=== PATIENT | female | born 1945 | race Caucasian/White ===

== ENCOUNTER 2017-11-03 10:46 | Inpatient (IN) | payer OTHER ==
--- NOTE | 2017-11-03 10:59 | PDOC ---
History of Present Illness - General Chief Complaint: Shortness of Breath Stated Complaint: RESPIRATORY (PCP SENT) Time Seen by Provider: 11/03/17 10:59 - History of Present Illness Initial Comments: 11/03/17 12:57 72yo woman, active smoker, with PMH of Afib (on Eliquis), HTN, and HLD who was sent over by PCP after being found to have L pleural effusion and Hgb 18.2. The patient initially presented to PCP (Dr. Aleman) for abdominal bloating and dyspnea. For the past few weeks she felt that her abdomen has been more distended, but no changes in BM (denies diahrrhea, melena, hematochezia). She worsening sob and orthopnea for the past few days. No fever, chills, CP, chest palpitations. Reports normal colonoscopy and mammogram within the last few years. PCP: Dr. Aleman Past History - Travel Traveled outside of the country in the last 30 days: No Close contact w/someone who was outside of country & ill: No - Past Medical History Allergies/Adverse Reactions: Allergies Allergy/AdvReac Type Severity Reaction Status Date / Time No Known Allergies Allergy Verified 11/03/17 10:47 Home Medications: Ambulatory Orders Apixaban [Eliquis -] 5 mg PO BID #60 tablet 02/23/16 Atorvastatin Ca [Lipitor] 20 mg PO HS 11/03/17 Diltiazem Cd [Cardizem Cd -] 180 mg PO DAILY 11/03/17 Furosemide [Lasix] 20 mg PO UTDICT 11/03/17 Metoprolol Tartrate [Lopressor -] 50 mg PO BID 11/03/17 Pravastatin Sodium [Pravachol (Nf)] 80 mg PO HS 11/03/17 Anemia: No Asthma: No Cancer: No Cardiac Disorders: Yes (a.fib) CVA: No COPD: No CHF: No Dementia: No Diabetes: No GI Disorders: No Disorders: No HTN: Yes Hypercholesterolemia: Yes Liver Disease: No Seizures: No Thyroid Disease: No - Surgical History Abdominal Surgery: No Appendectomy: No Cardiac Surgery: No Cholecystectomy: Yes Lung Surgery: No Neurologic Surgery: No Orthopedic Surgery: No - Suicide/Smoking/Psychosocial Hx Smoking History: Former smoker Have you smoked in the past 12 months: Yes Number of Cigarettes Smoked Daily: 5 Information on smoking cessation initiated: Yes 'Breaking Loose' booklet given: 11/03/17 Hx Alcohol Use: Yes (rare) Drug/Substance Use Hx: No Substance Use Type: Alcohol Hx Substance Use Treatment: No Review of Systems - Review of Systems Constitutional: Yes: Weakness Respiratory: Yes: Cough, Orthopnea, Shortness of Breath ABD/GI: Yes: Abdominal Distended All Other Systems: Reviewed and Negative *Physical Exam - Vital Signs Last Vital Signs Temp Pulse Resp BP Pulse Ox 97.7 F 99 H 18 129/89 93 L 11/03/17 10:48 11/03/17 10:48 11/03/17 10:48 11/03/17 10:48 11/03/17 10:48 - Physical Exam General Appearance: Yes: Nourished, Appropriately Dressed HEENT: positive: Normal ENT Inspection Neck: positive: Supple Respiratory/Chest: positive: Crackles (L). negative: Accessory Muscle Use Cardiovascular: positive: Regular Rhythm, Regular Rate, S1, S2. negative: JVD Vascular Pulses: Dorsalis-Pedis (R): 2+, Doralis-Pedis (L): 2+ Gastrointestinal/Abdominal: positive: Normal Bowel Sounds, Soft, Tenderness ( mild epigastric tenderness) Extremity: negative: Calf Tenderness Neurologic: positive: Fully Oriented, Alert, Normal Response ED Treatment Course - LABORATORY CBC & Chemistry Diagram: 11/03/17 12:10 11/03/17 14:50 Medical Decision Making - Medical Decision Making 11/03/17 16:49 72yo woman, active smoker, who presents with SOB and abdominal discomfort. Will do CT chest to r/o neoplasm given smoking history. CT Abd/pelvis to r/o acute abdominal process. 11/03/17 16:51 CT chest revealed suspicious spiculated mass in PETTY and moderate to large L pleural effusion. Will be admitted by Dr. Beard for further work-up *DC/Admit/Observation/Transfer Diagnosis at time of Disposition: Pleural effusion, Suspected malignant neoplasm - Discharge Dispostion Condition at time of disposition: Stable Admit: Yes - Referrals - Patient Instructions - Post Discharge Activity
[2017-11-03 12:24] LABS: MCH 34.6 pg (25.7-33.7); MCHC 34.9 g/dl (32.0-36.0); MEAN CELL VOLUME 99.2 fl (80-96); MEAN PLT VOLUME 7.8 fl (7.5-11.1); PLATELET COUNT 317 K/MM3 (134-434); RDW 14.6 % (11.6-15.6); WHITE BLOOD COUNT 6.1 K/mm3 (4.0-10.0)
[2017-11-03 12:56] LABS: ALBUMIN 4.3 g/dl (3.4-5.0); ALK PHOS 116 U/L (45-117); ANION GAP 10 (8-16); BILIRUBIN,TOTAL 1.8 mg/dL (0.2-1.0); CALCIUM 10.4 mg/dL (8.5-10.1); CO2 30 mmol/L (21-32); CREATININE 0.9 mg/dL (0.55-1.02); GLUCOSE,RANDOM 97 mg/dL (74-106); SGOT/AST 19 U/L (15-37); SGPT/ALT 20 U/L (12-78); TOT PROT 8.1 g/dl (6.4-8.2)
--- NOTE | 2017-11-03 13:08 | PDOC ---
Attending Attestation - HPI HPI: 11/03/17 13:08 The patient is a 72 year old female, with a significant past medical history of Afib (on eliquis), htn, current smoker, who presents to the emergency department with persistent abdominal pain and bloating, and SOB since being seen by Dr. Aleman about a week ago where she reportedly had a large left pleural effusion and a Hgb 18.2 (14-16 Hgb at baseline). She denies chest pain, headache and dizziness. She denies fever, chills, nausea , vomit, diarrhea and constipation. She denies dysuria, frequency, urgency and hematuria. Allergies: NKDA PCP - Dr. Aleman - Physicial Exam PE: 11/03/17 13:08 Vitals: Triage vital signs reviewed General Appearance: No acute distress, well nourished, well developed Head: Atraumatic Neck: Supple; No nuchal rigidity Chest Wall: Nontender Cardiac: Regular rate and rhythm, no murmurs, no rubs, no gallops Lungs: (+) Crackles at bilateral bases, Mild epigastric discomfort to palpation. good air movement bilaterally Abdomen: Soft, nondistended, normal bowel sounds, nontender to palpation Genitourinary: Rectal: Exam deferred Extremities: Full range of motion to all extremities, no cyanosis, clubbing, or edema Skin: Warm and dry, no rashes or lesions, no rash, no petechiae Neuro: AOX3; Cranial Nerves 2-12 grossly intact, Strength intact to all extremities, Sensation intact to all extremities, gait normal Psych: Normal mood, normal affect - Medical Decision Making 11/03/17 13:10 Documentation prepared by Katy Martell, acting as medical review coordinator for René Celis MD <Katy Martell - Last Filed: 11/03/17 15:57> - Resident Resident Name: Maria Elena Bell - ED Attending Attestation I have performed the following: I have examined & evaluated the patient, The case was reviewed & discussed with the resident, I agree w/resident's findings & plan, Exceptions are as noted - Medical Decision Making 11/03/17 14:26 Patient with shortness of breath cough and now some abdominal discomfort. Some increased abdominal girth. Given long smoking history we'll CT chest abdomen pelvis to rule out cancer and reassess 11/03/17 16:32 Patient sent to the emergency department for shortness of breath. CT demonstrates likely malignancy and pleural effusion. We'll observe for further management <René Celis - Last Filed: 11/03/17 16:33> Heart Score/ECG Review - ECG Intrepretation Comment:: 11/03/17 15:57 EKG performed at 12:50 demonstrates rate of 109 bpm, rhythm of atrial fibrillation with rapid ventricular response, left bundle branch block. No T wave inversions, no ST elevations. <Katy Martell - Last Filed: 11/03/17 15:57>
[2017-11-03 13:22] LABS: BASOPHIL 1.2 % (0-2.0); EOSINOPHIL 1.5 % (0-4.5); NEUTROPHILS 71.8 % (42.8-82.8)
[2017-11-03 15:31] LABS: ALBUMIN 3.6 g/dl (3.4-5.0); ANION GAP 8 (8-16); CALCIUM 9.7 mg/dL (8.5-10.1); CO2 32 mmol/L (21-32); CREATININE 0.9 mg/dL (0.55-1.02); GLUCOSE,RANDOM 106 mg/dL (74-106); SGOT/AST 16 U/L (15-37); SGPT/ALT 18 U/L (12-78)
[2017-11-03 15:33] LABS: ALK PHOS 102 U/L (45-117); BILIRUBIN,TOTAL 1.4 mg/dL (0.2-1.0); TOT PROT 6.9 g/dl (6.4-8.2)
[2017-11-03 15:40] LABS: INR 1.78 (0.82-1.09); PROTHROMBIN TIME (PATIENT) 20.1 SEC (9.98-11.88)
[2017-11-03 15:42] LABS: ACTIVATED PTT 33.3 SECONDS (26.9-34.4)
[2017-11-03] MEDS ORDERED: ONDANSETRON 4 MG/2 ML VIAL IVPUSH PRN (16:21)
[2017-11-03] MEDS ORDERED: ACETAMINOPHEN 325 MG TABLET (FP) PO PRN (16:21)
--- NOTE | 2017-11-03 16:33 | HP ---
Admitting History and Physical - Primary Care Physician PCP: Kia Aleman - Admission Chief Complaint: I'm short of breath History of Present Illness: Mrs Nelson is a very pleasant 72 year old female who came in on recommendation of Dr Aleman for shortness of breath. She says she was doing well until approximately 3 weeks ago when she became short of breath. She says it started off minimal but increased. She is short of breath both at rest and on exertion, and she notes it is worse when she is lying down. She also says that she has abdominal pain. She says it is a bloating type of pain and noted mainly after she eats. She also has nausea but no vomiting with this. She complains of constipation associated with it. She denies fevers, chills, night sweats, weight loss, lightheadedness, dizziness, passing out, chest pain, coughing, difficulty or pain on urination, or leg swelling. She presented to the office and was found to have an elevated Hgb and chest x-ray showed large pleural effusion and she was instructed to come in for further evaluation. Currently she says she feels ok. History Source: Patient Limitations to Obtaining History: No Limitations - Past Medical History Cardiovascular: Yes: AFIB, HTN, Hyperlipdemia - Past Surgical History Past Surgical History: Yes: Cholecystectomy - Smoking History Smoking history: Former smoker Have you smoked in the past 12 months: Yes Aproximately how many cigarettes per day: 5 - Alcohol/Substance Use Hx Alcohol Use: No (rare) History of Substance Use: reports: None - Social History Usual Living Arrangement: Yes: With Spouse ADL: Independent Occupation: retired History of Recent Travel: Yes (to [place]) Home Medications - Allergies Allergies/Adverse Reactions: Allergies Allergy/AdvReac Type Severity Reaction Status Date / Time No Known Allergies Allergy Verified 11/03/17 10:47 - Home Medications Home Medications: Ambulatory Orders Apixaban [Eliquis -] 5 mg PO BID #60 tablet 02/23/16 Atorvastatin Ca [Lipitor] 20 mg PO HS 11/03/17 Diltiazem Cd [Cardizem Cd -] 180 mg PO DAILY 11/03/17 Furosemide [Lasix] 20 mg PO UTDICT 11/03/17 Metoprolol Tartrate [Lopressor -] 50 mg PO BID 11/03/17 Pravastatin Sodium [Pravachol (Nf)] 80 mg PO HS 11/03/17 Family Disease History - Family Disease History Family Disease History: Heart Disease: Mother (CHF) Review of Systems Findings/Remarks: Full review of systems obtained, as per HPI and otherwise negative Physical Examination Vital Signs: Vital Signs Temperature 36.5 C 11/03/17 10:48 Pulse Rate 99 H 11/03/17 10:48 Respiratory Rate 18 11/03/17 10:48 Blood Pressure 129/89 11/03/17 10:48 O2 Sat by Pulse Oximetry (%) 93 L 11/03/17 10:48 Constitutional: Yes: No Distress, Calm, Thin Eyes: Yes: Conjunctiva Clear, EOM Intact, PERRL Cardiovascular: Yes: Pulse Irregular. No: Tachycardia, Gallop, Murmur, Rub Respiratory: Yes: Regular, Other (decreased breath sounds L side). No: Rales, Rhonchi, Wheezes Gastrointestinal: Yes: Normal Bowel Sounds, Soft. No: Distention, Tenderness Extremities: Yes: WNL Edema: No Labs: CBC, BMP 11/03/17 12:10 11/03/17 14:50 Imaging - Results Cat Scan: Report Reviewed, Image Reviewed Problem List - Problems (1) Pleural effusion Assessment/Plan: -patient with large left pleural effusion -most likely cause of shortness of breath -concerning that this is a malignant pleural effusion consider large spiculated mass and smoking history -will need thoracentesis -consult pulmonary and oncology -hold aidan, will discuss with hematology/oncology when safe to perform thoracentesis Code(s): J90 - PLEURAL EFFUSION, NOT ELSEWHERE CLASSIFIED (2) Lung mass Assessment/Plan: -lung mass noted on CT scan -concerning for primary lung cancer -as above Code(s): R91.8 - OTHER NONSPECIFIC ABNORMAL FINDING OF LUNG FIELD (3) Tobacco abuse Assessment/Plan: -now down to 5-6 cigarettes/day -counselled cessation Code(s): Z72.0 - TOBACCO USE (4) Atrial fibrillation Assessment/Plan: -rate controlled with cardizem and metoprolol -hold eliarianais -Dr Munoz is her skidder runner, made aware of hospitalization Code(s): I48.91 - UNSPECIFIED ATRIAL FIBRILLATION Qualifiers: Atrial fibrillation type: chronic Qualified Code(s): I48.2 - Chronic atrial fibrillation (5) HLD (hyperlipidemia) Assessment/Plan: -continue statin Code(s): E78.5 - HYPERLIPIDEMIA, UNSPECIFIED (6) HTN (hypertension) Assessment/Plan: -continue cardizem and metoprolol -continue lasix [facility] Code(s): I10 - ESSENTIAL (PRIMARY) HYPERTENSION Qualifiers: Hypertension type: essential hypertension Qualified Code(s): I10 - Essential (primary) hypertension
[2017-11-03] MEDS ORDERED: DOCUSATE SODIUM 100 MG CAPSULE (FP) PO ONE (17:46)
[2017-11-03] MEDS: DOCUSATE SODIUM 100 MG CAPSULE (FP) PO SCH ×2 (17:52→23:02)
[2017-11-03] MEDS ORDERED: PATIENT'S OWN MEDICATION (NON-FORMULARY) (Pravastatin Sodium 80 MG) PO SCH (22:00)
[2017-11-03] MEDS: METOPROLOL TARTRATE 50 MG TABLET (FP) PO SCH (23:02)
[2017-11-03] MEDS: ATORVASTATIN CA 20 MG TABLET (FP) PO SCH (23:02)
[2017-11-03 23:22] VITALS: BMI 22.3
--- NOTE | 2017-11-04 07:37 | EKG ---
Test Reason : Blood Pressure : / mmHG Vent. Rate : 109 BPM Atrial Rate : 100 BPM P-R Int : 000 ms QRS Dur : 122 ms QT Int : 326 ms P-R-T Axes : 000 014 200 degrees QTc Int : 439 ms ATRIAL FIBRILLATION WITH RAPID VENTRICULAR RESPONSE LEFT BUNDLE BRANCH BLOCK ABNORMAL ECG WHEN COMPARED WITH ECG OF 19-FEB-2016 13:38, LEFT BUNDLE BRANCH BLOCK IS NOW PRESENT CRITERIA FOR ANTEROSEPTAL INFARCT ARE NO LONGER PRESENT Confirmed by Alexandria Alvarado ([id number]) on 11/03/2017 2:21:03 PM Also confirmed by MD Alvarado Daniel ([id number]), assistant film editor [place] WALL ([id number]) on 11/04/2017 7:37:01 AM Referred By: Confirmed By:Alexandria Alvarado MD
[2017-11-04 07:48] LABS: BASOPHIL 1.2 % (0-2.0); EOSINOPHIL 2.4 % (0-4.5); MCHC 38.6 g/dl (32.0-36.0); MEAN CELL VOLUME 107.9 fl (80-96); MEAN PLT VOLUME 8.1 fl (7.5-11.1); NEUTROPHILS 69.5 % (42.8-82.8); RDW 14.5 % (11.6-15.6); WHITE BLOOD COUNT 5.1 K/mm3 (4.0-10.0)
[2017-11-04 07:55] LABS: INR 1.3 (0.82-1.09); PROTHROMBIN TIME (PATIENT) 14.7 SEC (9.98-11.88)
[2017-11-04 08:05] LABS: MCH 41.7 pg (25.7-33.7)
[2017-11-04 08:09] LABS: PHOSPHOROUS 3.4 mg/dL (2.5-4.9)
[2017-11-04 08:26] LABS: ANION GAP 8 (8-16); CALCIUM 8.9 mg/dL (8.5-10.1); CO2 28 mmol/L (21-32); CREATININE 0.7 mg/dL (0.55-1.02); GLUCOSE,RANDOM 95 mg/dL (74-106)
--- NOTE | 2017-11-04 09:03 | CONSULT ---
Consult Consult Specialty:: Oncology Referred by:: - History of Present Illness History of Present Illness: Mrs Nelson is an active smoker with a ECOG PS of 1 , is sent from PMD's office for evaluation of new onset SOB. On imaging she was found to have a pleural effusion/ lung mass. Oncology called for further eval. Pt is seen and examined. Pt says she feels a little bit better than yesterday. She denies fevers, chills, appetite changes, weight loss, lightheadedness, coughing. - History Source History Provided By: Patient, Medical Record - Past Medical History Cardio/Vascular: Yes: AFIB, HTN, Hyperlipdemia ...: No - Past Surgical History Past Surgical History: Yes: Cholecystectomy - Alcohol/Substance Use Hx Alcohol Use: No (rare) History of Substance Use: reports: None - Smoking History Smoking history: Current every day smoker Have you smoked in the past 12 months: Yes Aproximately how many cigarettes per day: 5 - Social History ADL: Independent Occupation: retired History of Recent Travel: Yes (to [place]) Home Medications - Allergies Allergies/Adverse Reactions: Allergies Allergy/AdvReac Type Severity Reaction Status Date / Time No Known Allergies Allergy Verified 11/03/17 10:47 - Home Medications Home Medications: Ambulatory Orders Apixaban [Eliquis -] 5 mg PO BID #60 tablet 02/23/16 Atorvastatin Ca [Lipitor] 20 mg PO HS 11/03/17 Diltiazem Cd [Cardizem Cd -] 180 mg PO DAILY 11/03/17 Furosemide [Lasix] 20 mg PO UTDICT 11/03/17 Metoprolol Tartrate [Lopressor -] 50 mg PO BID 11/03/17 Pravastatin Sodium [Pravachol (Nf)] 80 mg PO HS 11/03/17 Family Disease History - Family Disease History Family Disease History: Heart Disease: Mother (CHF) Review of Systems - Review of Systems Constitutional: denies: Chills, Diaphoresis, Fever, Lethargy, Loss of Appetite Eyes: reports: No Symptoms HENT: denies: Difficult Swallowing Neck: denies: Decreased ROM, Lumps Cardiovascular: reports: Chest Pain, Shortness of Breath Respiratory: reports: Cough, Exercise Intolerance, SOB, SOB on Exertion Gastrointestinal: denies: Abdominal Pain, Bloating, Constipation, Diarrhea Neurological: reports: No Symptoms Physical Exam Vital Signs: Vital Signs Temperature 97.8 F 11/04/17 06:30 Pulse Rate 101 H 11/04/17 06:30 Respiratory Rate 20 11/04/17 06:30 Blood Pressure 139/98 11/04/17 06:30 O2 Sat by Pulse Oximetry (%) 93 L 11/03/17 22:00 Constitutional: Yes: No Distress, Calm Eyes: Yes: Conjunctiva Clear HENT: Yes: Atraumatic, Normocephalic Neck: Yes: Supple, Trachea Midline. No: Decreased ROM, Lymphadenopathy Cardiovascular: Yes: Pulse Irregular Respiratory: Yes: Regular, On Nasal O2, Poor Air Entry, Other (decreased breath sounds on the Left side). No: Tachypnea Labs: CBC, BMP 11/04/17 05:35 11/04/17 05:35 Imaging - Results Cat Scan: Report Reviewed, Image Reviewed Problem List - Problems (1) Atrial fibrillation Code(s): I48.91 - UNSPECIFIED ATRIAL FIBRILLATION Qualifiers: Atrial fibrillation type: chronic Qualified Code(s): I48.2 - Chronic atrial fibrillation (2) Lung mass Code(s): R91.8 - OTHER NONSPECIFIC ABNORMAL FINDING OF LUNG FIELD (3) Pleural effusion Code(s): J90 - PLEURAL EFFUSION, NOT ELSEWHERE CLASSIFIED (4) Tobacco abuse Code(s): Z72.0 - TOBACCO USE Assessment/Plan Moderate to large Pleural effusion with a spiculated mass in the left lung ( pt is an active smoker) -highly suspicious for a primary pulmonary malignancy ( if proven the fluid to be malignant , it would be a M1a stage , making it Stage IV), unless proven otherwise. -Pulmonary consult. -IR guided drainage of the fluid -CT c/a/p reviewed, did not find suspicious findings for other likely metastatic foci -might need to consider CTS eval -for OP PET-CT Afib: -pt on eliquis -last dose was yesterday morning -cardiology eval -with intact renal fn, procedure could likely take place tomorrow CT evidence of renal infarcts: -?etiology -likely might have a secondary polycythemia , but it would be interesting to r/ o a primary dis (pt is an avid blood donor), can be done as an OP, once other much acute issues resolve.
[2017-11-04] MEDS: METOPROLOL TARTRATE 50 MG TABLET (FP) PO SCH ×2 (09:38→22:02)
[2017-11-04] MEDS: DOCUSATE SODIUM 100 MG CAPSULE (FP) PO SCH ×2 (09:38→21:52)
[2017-11-04] MEDS: FUROSEMIDE 20 MG TABLET (FP) PO SCH (09:38)
[2017-11-04 10:33] LABS: PLATELET COMMENTS NO CLUMPING NOTED; PLATELET COUNT 253 K/MM3 (134-434)
--- NOTE | 2017-11-04 11:17 | CONSULT ---
Consultation: REQUESTING PROVIDER: CONSULT REQUEST: We have been asked to medically evaluate this patient for pleural effusion with concern for malignancy. HISTORY OF PRESENT ILLNESS: 72F w/ 75 pack-year smoking hx, HTN, a-fib, and HLD presenting with SOB for past month. Per patient, she was in her USOH until a month ago when she began developing SOB on exertion. The SOB increased until it was present at rest as well. It was accompanied by a productive cough of clear sputum, rhinorrhea, generalized fatigue, abdominal pain with bloating and nausea after eating meals , loss of appetite,and constipation. She denies night sweats, recent unintentional weight loss, fevers, chills, chest pain, palpitations, wheezing, emesis, diarrhea, and dysuria. Pt states that these symptoms prompted her to visit her PCP, Dr. Aleman. It was discovered at the office that she had an elevated Hgb and a pleural effusion on CXR, and so she was instructed to go to the hospital for further evaluation. Pt reports smoking 2 packs of cigarettes per day for about 35 years since she was a teenager. She then cut down to about 5 cigarettes per day when her was diagnosed with heart disease about 20 years ago. She denies alcohol and drug use. 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 She reports a possible family hx of COPD, but she is unsure. REVIEW OF SYSTEMS: CONSTITUTIONAL: Absent: fever, chills, diaphoresis, generalized weakness, weight change present: fatigue, loss of appetite HEENT: Absent: throat pain, throat swelling, difficulty swallowing, mouth swelling, ear pain, eye pain, visual changes present: rhinorrhea CARDIOVASCULAR: Absent: chest pain, syncope, palpitations, irregular heart rate, lightheadedness , peripheral edema RESPIRATORY: Absent: wheezing, stridor, hemoptysis present: cough, SOB, [place] GASTROINTESTINAL: Absent: emesis, diarrhea, melena, hematochezia present: abdominal pain, bloating, nausea, constipation GENITOURINARY: Absent: dysuria, frequency, urgency, hesitancy, hematuria, flank pain, genital pain MUSCULOSKELETAL: Absent: myalgia, arthralgia, joint swelling, back pain, neck pain SKIN: Absent: rash, itching, pallor HEMATOLOGIC/IMMUNOLOGIC: Absent: easy bleeding, easy bruising, lymphadenopathy, frequent infections ENDOCRINE: Absent: unexplained weight gain, unexplained weight loss, heat intolerance, cold intolerance NEUROLOGIC: Absent: headache, focal weakness or paresthesias, dizziness, unsteady gait, seizure, mental status changes, bladder or bowel incontinence PSYCHIATRIC: Absent: anxiety, depression, suicidal or homicidal ideation, hallucinations. PHYSICAL EXAMINATION Vital Signs - 24 hr 11/03/17 11/03/17 11/03/17 19:02 19:35 22:00 Temperature 97.8 F Pulse Rate 97 H Pulse Rate [ 89 Left Radial] Respiratory 18 20 93 H Rate Blood Pressure 115/86 Blood Pressure 125/74 [Left Arm] O2 Sat by Pulse 95 93 L Oximetry (%) 11/04/17 06:30 Temperature 97.8 F Pulse Rate 101 H Pulse Rate [ Left Radial] Respiratory 20 Rate Blood Pressure 139/98 Blood Pressure [Left Arm] O2 Sat by Pulse Oximetry (%) GENERAL: pleasant, elderly female, awake, alert, and fully oriented, in no acute distress. HEENT: moist mucous membranes, [place] NECK: Normal range of motion, supple without lymphadenopathy, JVD, or masses. LUNGS: decreased breath sounds over left lung with rales HEART: irregularly irregular, no murmurs ABDOMEN: Soft, nontender, not distended, normoactive bowel sounds, no guarding, no rebound, no masses. No hepatomegaly or splenomegaly. MUSCULOSKELETAL: 1+ edema in b/l ankles NEUROLOGICAL: Cranial nerves II-XII intact. Normal speech. PSYCHIATRIC: Cooperative. Good eye contact. Appropriate mood and affect. SKIN: Warm, dry, normal turgor, no rashes or lesions noted. Laboratory Results - last 24 hr 11/03/17 11/03/17 11/03/17 12:10 12:10 12:10 WBC 6.1 RBC 5.38 H D Hgb 18.6 H D Hct 53.4 H D MCV 99.2 H MCH 34.6 H D MCHC 34.9 RDW 14.6 Plt Count 317 D MPV 7.8 Total Counted Cancelled Neutrophils % 71.8 Neutrophils % (Manual) Cancelled Band Neutrophils % Cancelled Lymphocytes % 13.9 D Lymphocytes % (Manual) Cancelled Monocytes % 11.6 H Monocytes % (Manual) Cancelled Eosinophils % 1.5 Eosinophils % (Manual) Cancelled Basophils % 1.2 Basophils % (Manual) Cancelled Myelocytes % (Man) Cancelled Promyelocytes % (Man) Cancelled Blast Cells % (Manual) Cancelled Nucleated RBC % Cancelled Metamyelocytes Cancelled Differential Comment Cancelled Hypersegmented Neuts Cancelled Plasma Cells Cancelled Smudge Cells Cancelled Other Cell Type Cancelled Hypochromia Cancelled Toxic Granulation Cancelled Dohle Bodies Cancelled Platelet Estimate Cancelled Platelet Comment Polychromasia Cancelled Poikilocytosis Cancelled Basophilic Stippling Cancelled Anisocytosis Cancelled Microcytosis Cancelled Macrocytosis Cancelled Spherocytes Cancelled Siderocytes Cancelled Sickle Cells Cancelled Target Cells Cancelled Tear Drop Cells Cancelled Ovalocytes Cancelled Stomatocytes Cancelled Helmet Cells Cancelled [place] Bodies Cancelled [place] Rings Cancelled [place] Cells Cancelled Acanthocytes (Spur) Cancelled Rouleaux Cancelled Fragmented RBCs Cancelled Schistocytes Cancelled PT with INR INR PTT (Actin FS) Sodium 138 Potassium 4.1 Chloride 98 Carbon Dioxide 30 Anion Gap 10 BUN 17 D Creatinine 0.9 D Creat Clearance w eGFR > 60 Random Glucose 97 Calcium 10.4 H Phosphorus Magnesium Total Bilirubin 1.8 H D AST 19 D ALT 20 Alkaline Phosphatase 116 Troponin I B-Natriuretic Peptide 2351.68 H Total Protein 8.1 D Albumin 4.3 D Blood Type Antibody Screen 11/03/17 11/03/17 11/03/17 14:50 14:50 14:50 WBC RBC Hgb Hct MCV MCH MCHC RDW Plt Count MPV Total Counted Neutrophils % Neutrophils % (Manual) Band Neutrophils % Lymphocytes % Lymphocytes % (Manual) Monocytes % Monocytes % (Manual) Eosinophils % Eosinophils % (Manual) Basophils % Basophils % (Manual) Myelocytes % (Man) Promyelocytes % (Man) Blast Cells % (Manual) Nucleated RBC % Metamyelocytes Differential Comment Hypersegmented Neuts Plasma Cells Smudge Cells Other Cell Type Hypochromia Toxic Granulation Dohle Bodies Platelet Estimate Platelet Comment Polychromasia Poikilocytosis Basophilic Stippling Anisocytosis Microcytosis Macrocytosis Spherocytes Siderocytes Sickle Cells Target Cells Tear Drop Cells Ovalocytes Stomatocytes Helmet Cells [place] Bodies [place] Rings [place] Cells Acanthocytes (Spur) Rouleaux Fragmented RBCs Schistocytes PT with INR 20.10 H INR 1.78 H PTT (Actin FS) 33.3 Sodium Potassium Chloride Carbon Dioxide Anion Gap BUN Creatinine Creat Clearance w eGFR Random Glucose Calcium Phosphorus Magnesium Total Bilirubin AST ALT Alkaline Phosphatase Troponin I < 0.02 B-Natriuretic Peptide Total Protein Albumin Blood Type O POSITIVE Antibody Screen Negative 11/03/17 11/04/17 11/04/17 14:50 05:35 05:35 WBC 5.1 RBC 3.68 D Hgb 15.3 D Hct 39.7 D MCV 107.9 H D MCH 41.7 H D MCHC 38.6 H RDW 14.5 Plt Count 253 D MPV 8.1 Total Counted Neutrophils % 69.5 Neutrophils % (Manual) Band Neutrophils % Lymphocytes % 12.9 Lymphocytes % (Manual) Monocytes % 14.0 H Monocytes % (Manual) Eosinophils % 2.4 Eosinophils % (Manual) Basophils % 1.2 Basophils % (Manual) Myelocytes % (Man) Promyelocytes % (Man) Blast Cells % (Manual) Nucleated RBC % Metamyelocytes Differential Comment Hypersegmented Neuts Plasma Cells Smudge Cells Other Cell Type Hypochromia Toxic Granulation Dohle Bodies Platelet Estimate Platelet Comment No clumping noted Polychromasia Poikilocytosis Basophilic Stippling Anisocytosis Microcytosis Macrocytosis Spherocytes Siderocytes Sickle Cells Target Cells Tear Drop Cells Ovalocytes Stomatocytes Helmet Cells [place] Bodies [place] Rings [place] Cells Acanthocytes (Spur) Rouleaux Fragmented RBCs Schistocytes PT with INR INR PTT (Actin FS) Sodium 141 141 Potassium 3.8 3.5 Chloride 101 105 Carbon Dioxide 32 28 Anion Gap 8 8 BUN 17 17 Creatinine 0.9 0.7 D Creat Clearance w eGFR > 60 Random Glucose 106 95 Calcium 9.7 8.9 Phosphorus 3.4 D Magnesium 2.0 Total Bilirubin 1.4 H D AST 16 ALT 18 Alkaline Phosphatase 102 Troponin I B-Natriuretic Peptide Total Protein 6.9 Albumin 3.6 Blood Type Antibody Screen 11/04/17 05:35 WBC RBC Hgb Hct MCV MCH MCHC RDW Plt Count MPV Total Counted Neutrophils % Neutrophils % (Manual) Band Neutrophils % Lymphocytes % Lymphocytes % (Manual) Monocytes % Monocytes % (Manual) Eosinophils % Eosinophils % (Manual) Basophils % Basophils % (Manual) Myelocytes % (Man) Promyelocytes % (Man) Blast Cells % (Manual) Nucleated RBC % Metamyelocytes Differential Comment Hypersegmented Neuts Plasma Cells Smudge Cells Other Cell Type Hypochromia Toxic Granulation Dohle Bodies Platelet Estimate Platelet Comment Polychromasia Poikilocytosis Basophilic Stippling Anisocytosis Microcytosis Macrocytosis Spherocytes Siderocytes Sickle Cells Target Cells Tear Drop Cells Ovalocytes Stomatocytes Helmet Cells [place] Bodies [place] Rings [place] Cells Acanthocytes (Spur) Rouleaux Fragmented RBCs Schistocytes PT with INR 14.70 H INR 1.30 H PTT (Actin FS) Sodium Potassium Chloride Carbon Dioxide Anion Gap BUN Creatinine Creat Clearance w eGFR Random Glucose Calcium Phosphorus Magnesium Total Bilirubin AST ALT Alkaline Phosphatase Troponin I B-Natriuretic Peptide Total Protein Albumin Blood Type Antibody Screen Active Medications Generic Name Dose Route Start Last Admin Trade Name Freq PRN Reason Stop Dose Admin Acetaminophen 650 mg 11/03/17 16:21 Tylenol - PO Q4H PRN FEVER OR PAIN Atorvastatin Calcium 20 mg 11/03/17 22:00 11/03/17 23:02 Lipitor - PO 20 mg HS MANDIE Administration Diltiazem HCl 180 mg 11/04/17 10:00 11/04/17 09:38 Cardizem Cd - PO 180 mg DAILY MANDIE Administration Docusate Sodium 100 mg 11/03/17 17:00 11/04/17 09:38 Colace - PO 100 mg BID MANDIE Administration Furosemide 20 mg 11/04/17 10:00 11/04/17 09:38 Lasix - PO 20 mg [id number] MANDIE Administration Metoprolol Tartrate 50 mg 11/03/17 22:00 11/04/17 09:38 Lopressor - PO 50 mg BID MANDIE Administration Ondansetron HCl 4 mg 11/03/17 16:21 Zofran Injection IVPUSH Q6H PRN NAUSEA CT abdomen: no definite acute pathology CTA chest: left suprahilar spiculated soft tissue lesion, lymphadenopathy, large left sided pleural effusion, and trace right sided pleural effusion. ASSESSMENT/PLAN: 72F w/ 75 pack-year smoking hx, HTN, a-fib, and HLD presenting with SOB and multiple constitutional symptoms for past month. #SOB -2/2 large left-sided pleural effusion -CTA chest: left suprahilar spiculated soft tissue lesion, lymphadenopathy, large left sided pleural effusion, and trace right sided pleural effusion. -Suspicion is high for malignancy. pt has over 75 pack-year smoking hx, polycythemia, and a spiculated mass on CTA chest -pt not complaining of SOB at rest now. satting 96% on RA -O2 via NC if she starts desatting -duonebs PRN -lasix -diagnostic/therapeutic thoracentesis to assess pleural fluid. if non-diagnostic , will bx via bronch. -incentive spirometry -oncology consult -f/u rib series for rib pain Rest of care per medical team Case discussed with attending, Dr. Benjamin. Dispo: We will continue to follow the patient. Thank you for this consultative opportunity. -Albert Dumont MD PGY1 Pulmonology Team Visit type - Emergency Visit Emergency Visit: Yes ED Registration Date: 11/03/17 Care time: The patient presented to the Emergency Department on the above date and was hospitalized for further evaluation of their emergent condition. - New Patient This patient is new to me today: Yes Date on this admission: 11/04/17 - Critical Care Critical Care patient: No
--- NOTE | 2017-11-04 11:40 | CON.PULM ---
Consult Consult Specialty:: PULMONARY Referred by:: RICHMOND Reason for Consultation:: LUNG MASS /EFFUSION - History of Present Illness Chief Complaint: ORTHOPNEA/WGT LOSS/COUGH History of Present Illness: 72yo woman, active smoker, with PMH of Afib (on Eliquis), HTN, and HLD who was sent over by PCP after being found to have L pleural effusion and Hgb 18.2. The patient initially presented to PCP (Dr. Aleman) for abdominal bloating and dyspnea. For the past few weeks she felt that her abdomen has been more distended, but no changes in BM (denies diahrrhea, melena, hematochezia). She worsening sob and orthopnea for the past few days. No fever, chills, and chest pain. 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 No: O2 Dependent Gastrointestinal: No: Ascites Hepatobiliary: No: Cirrhosis Renal/: No: Renal Failure Reproductive: Yes: Postmenopausal ...: No - Past Surgical History Past Surgical History: Yes: Cholecystectomy - Alcohol/Substance Use Hx Alcohol Use: No (rare) History of Substance Use: reports: None - Smoking History Smoking history: Current every day smoker Have you smoked in the past 12 months: Yes Aproximately how many cigarettes per day: 5 - Social History ADL: Independent Occupation: retired History of Recent Travel: Yes (to [place]) Home Medications - Allergies Allergies/Adverse Reactions: Allergies Allergy/AdvReac Type Severity Reaction Status Date / Time No Known Allergies Allergy Verified 11/03/17 10:47 - Home Medications Home Medications: Ambulatory Orders Apixaban [Eliquis -] 5 mg PO BID #60 tablet 02/23/16 Atorvastatin Ca [Lipitor] 20 mg PO HS 11/03/17 Diltiazem Cd [Cardizem Cd -] 180 mg PO DAILY 11/03/17 Furosemide [Lasix] 20 mg PO UTDICT 11/03/17 Metoprolol Tartrate [Lopressor -] 50 mg PO BID 11/03/17 Pravastatin Sodium [Pravachol (Nf)] 80 mg PO HS 11/03/17 Family Disease History - Family Disease History Family Disease History: Heart Disease: Mother (CHF) Review of Systems - Review of Systems Constitutional: denies: Fever, Lethargy, Loss of Appetite Eyes: denies: Blind Spots HENT: denies: Difficult Swallowing Neck: denies: Decreased ROM Cardiovascular: reports: Edema, Shortness of Breath. denies: Chest Pain Respiratory: reports: Cough, Exercise Intolerance, Orthopnea, SOB on Exertion. denies: Hemoptysis, Wheezing Gastrointestinal: reports: Abdominal Pain, Bloating, Constipation Genitourinary: denies: Burning Breasts: reports: No Symptoms Reported Physical Exam Vital Sings: Vital Signs Temperature 97.6 F 11/04/17 10:00 Pulse Rate 98 H 11/04/17 10:00 Respiratory Rate 20 11/04/17 10:00 Blood Pressure 140/96 11/04/17 10:00 O2 Sat by Pulse Oximetry (%) 93 L 11/03/17 22:00 Constitutional: Yes: Calm Eyes: Yes: EOM Intact HENT: Yes: Normocephalic Neck: Yes: Trachea Midline Cardiovascular: Yes: Pulse Irregular, S1, S2 Respiratory: Yes: Dullness (on left base extending 1/2 up lung field) Gastrointestinal: Yes: Normal Bowel Sounds Edema: LLE: 2+, RLE: 2+ Integumentary: Yes: WNL ...Motor Strength: WNL Psychiatric: Yes: WNL Labs: CBC, BMP 11/04/17 05:35 11/04/17 05:35 rest reviewed Imaging - Results Chest X-ray: Report Reviewed, Image Reviewed Cat Scan: Report Reviewed, Image Reviewed Problem List - Problems (1) Atrial fibrillation Code(s): I48.91 - UNSPECIFIED ATRIAL FIBRILLATION Qualifiers: Atrial fibrillation type: chronic Qualified Code(s): I48.2 - Chronic atrial fibrillation (2) HLD (hyperlipidemia) Code(s): E78.5 - HYPERLIPIDEMIA, UNSPECIFIED (3) Lung mass Code(s): R91.8 - OTHER NONSPECIFIC ABNORMAL FINDING OF LUNG FIELD (4) Pleural effusion Code(s): J90 - PLEURAL EFFUSION, NOT ELSEWHERE CLASSIFIED (5) Tobacco abuse Code(s): Z72.0 - TOBACCO USE (6) Abdominal pain Code(s): R10.9 - UNSPECIFIED ABDOMINAL PAIN (7) Atrial fibrillation with rapid ventricular response Code(s): I48.91 - UNSPECIFIED ATRIAL FIBRILLATION Assessment/Plan LARGE VOLUME PLEURAL EFFUSION WITH LUNG MASS IN AN ACTIVE SMOKER AFIB ON ELIQUIS HTN NOT WELL CONTROLLED HPL LIKELY COPD WILL NEED DIAGNOSTIC/THERAPEUTIC PROCEDURE THORACENTESIS CAN LIKELY BE PERFORMED TOMORROW ELIQUIS HAS BEEN HELD AFTER ONE DOSE YESTERDAY PATIENT IS LOW RISK FOR BLEEDING I HAVE ORDERED A RIGHT RIB SERIES SHE DESCRIBES RIB PAIN (SEVERE) FOR LAST ONE WEEK IF NONDIAGNOSTIC FOR NEOPLASTIC DISEASE WOULD CONSIDER FOB/BX/BRUSH WILL FOLLOW THANK YOU Gaurang BARBOUR MD
--- NOTE | 2017-11-04 11:54 | CON.CARD ---
Consult Consult Specialty:: Cardiology Referred by:: Paul Beard MD Reason for Consultation:: Pleural effusion - History of Present Illness Chief Complaint: Dyspnea History of Present Illness: Patient is a 72 year old female with h/o HTN/HCVD, diastolic dysfunction, persistent Afib on Eliquis presented with abdominal bloating, progressive dyspnea and orthopnea, found to have large left-sided effusion and pulmonary nodule suspicious of malignancy. 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 No: O2 Dependent Gastrointestinal: No: Ascites Hepatobiliary: No: Cirrhosis Renal/: No: Renal Failure ...: No - Past Surgical History Past Surgical History: Yes: Cholecystectomy - Alcohol/Substance Use Hx Alcohol Use: No (rare) History of Substance Use: reports: None - Smoking History Smoking history: Current every day smoker Have you smoked in the past 12 months: Yes Aproximately how many cigarettes per day: 5 - Social History ADL: Independent Occupation: retired History of Recent Travel: Yes (to [place]) Home Medications - Allergies Allergies/Adverse Reactions: Allergies Allergy/AdvReac Type Severity Reaction Status Date / Time No Known Allergies Allergy Verified 11/03/17 10:47 - Home Medications Home Medications: Ambulatory Orders Apixaban [Eliquis -] 5 mg PO BID #60 tablet 02/23/16 Atorvastatin Ca [Lipitor] 20 mg PO HS 11/03/17 Diltiazem Cd [Cardizem Cd -] 180 mg PO DAILY 11/03/17 Furosemide [Lasix] 20 mg PO UTDICT 11/03/17 Metoprolol Tartrate [Lopressor -] 50 mg PO BID 11/03/17 Pravastatin Sodium [Pravachol (Nf)] 80 mg PO HS 11/03/17 Family Disease History - Family Disease History Family Disease History: Heart Disease: Mother (CHF) Review of Systems - Review of Systems Cardiovascular: reports: Shortness of Breath Respiratory: reports: Orthopnea Vital Signs: Vital Signs Temperature 97.6 F 11/04/17 10:00 Pulse Rate 98 H 11/04/17 10:00 Respiratory Rate 20 11/04/17 10:00 Blood Pressure 140/96 11/04/17 10:00 O2 Sat by Pulse Oximetry (%) 93 L 11/03/17 22:00 Constitutional: Yes: No Distress, Calm, Thin Neck: Yes: Supple Respiratory: Yes: Regular, Diminished (Left), On Nasal O2 Gastrointestinal: Yes: Normal Bowel Sounds, Soft Cardiovascular: Yes: Pulse Irregular JVD: No Carotid Bruit: No Heart Sounds: Yes: S1, S2 Murmur: Yes: Systolic Murmur, Grade 2 Edema: No - Other Data Labs, Other Data: CBC, BMP 11/04/17 05:35 11/04/17 05:35 INR, PTT INR 1.30 (0.82-1.09) H 11/04/17 05:35 Troponin, BNP 11/03/17 11/03/17 12:10 14:50 Troponin I < 0.02 B-Natriuretic Peptide 2351.68 H Troponin, BNP 11/03/17 11/03/17 12:10 14:50 Troponin I < 0.02 B-Natriuretic Peptide 2351.68 H Afib @ 109 LBBB similar to [id number]/28/2017 Echo: Report Reviewed Ejection Fraction %: LVEF > or = 40 % Imaging - Results Cat Scan: Report Reviewed (PETTY lesion suspect malignant, mod-severe left effusion) Problem List - Problems (1) Atrial fibrillation Code(s): I48.91 - UNSPECIFIED ATRIAL FIBRILLATION Qualifiers: Atrial fibrillation type: persistent Qualified Code(s): I48.1 - Persistent atrial fibrillation (2) HLD (hyperlipidemia) Code(s): E78.5 - HYPERLIPIDEMIA, UNSPECIFIED Qualifiers: Hyperlipidemia type: pure hypercholesterolemia Qualified Code(s): E78.00 - Pure hypercholesterolemia, unspecified; E78.0 - Pure hypercholesterolemia (3) Lung mass Code(s): R91.8 - OTHER NONSPECIFIC ABNORMAL FINDING OF LUNG FIELD (4) Pleural effusion Code(s): J90 - PLEURAL EFFUSION, NOT ELSEWHERE CLASSIFIED (5) Tobacco abuse Code(s): Z72.0 - TOBACCO USE (6) HTN (hypertension) Code(s): I10 - ESSENTIAL (PRIMARY) HYPERTENSION Qualifiers: Hypertension type: essential hypertension Qualified Code(s): I10 - Essential (primary) hypertension (7) Diastolic dysfunction Code(s): I51.9 - HEART DISEASE, UNSPECIFIED Assessment/Plan 02/20/2016 Normal LV size and fxn, borderline TRACIE, severe TR, mild TR RVSP 40-50 mmHg 1. Left pleural effusion with lung mass 2. HTN/HCVD 3. Chronic diastolic dysfunction 4. Persistent Afib off Eliquis yesterday 5. Hyperlipidemia 6. Tobacco abuse PLAN: 1. Eliquis held since yesterday, may proceed with thoracentesis today given low bleeding risk, would minimize time off a/c 2. Continue Cardizem CD 180 qd, Lopressor 50 bid, Lasix 20 qd, Lipitor 20 qhs 3. Smoking cessation, thank you for consultative opportunity
--- NOTE | 2017-11-04 15:19 | PN ---
Progress Note, Physician Chief Complaint: Ms Nelson says she is still sob. Also with some right sided chest pain. No n/v. - Current Medication List Current Medications: Active Medications Acetaminophen (Tylenol -) 650 mg PO Q4H PRN PRN Reason: FEVER OR PAIN Atorvastatin Calcium (Lipitor -) 20 mg PO HS [facility] Last Admin: 11/03/17 23:02 Dose: 20 mg Diltiazem HCl (Cardizem Cd -) 180 mg PO DAILY [facility] Last Admin: 11/04/17 09:38 Dose: 180 mg Docusate Sodium (Colace -) 100 mg PO BID [facility] Last Admin: 11/04/17 09:38 Dose: 100 mg Furosemide (Lasix -) 20 mg PO MoWeFr@1000 [facility] Last Admin: 11/04/17 09:38 Dose: 20 mg Metoprolol Tartrate (Lopressor -) 50 mg PO BID [facility] Last Admin: 11/04/17 09:38 Dose: 50 mg Ondansetron HCl (Zofran Injection) 4 mg IVPUSH Q6H PRN PRN Reason: NAUSEA - Objective Vital Signs: Vital Signs Temperature 36.7 C 11/04/17 14:37 Pulse Rate 72 11/04/17 14:37 Respiratory Rate 16 11/04/17 14:37 Blood Pressure 112/78 11/04/17 14:37 O2 Sat by Pulse Oximetry (%) 96 11/04/17 09:00 Constitutional: Yes: Well Nourished, No Distress, Calm Cardiovascular: Yes: Pulse Irregular. No: Tachycardia, Gallop, Murmur, Rub Respiratory: Yes: Regular, On Nasal O2, Rhonchi (with decreased breath sounds on L side). No: CTA Bilaterally, Rales, Wheezes Gastrointestinal: Yes: Normal Bowel Sounds, Soft. No: Distention, Tenderness Extremities: Yes: WNL Edema: No Labs: CBC, BMP 11/04/17 05:35 11/04/17 05:35 INR, PTT INR 1.30 (0.82-1.09) H 11/04/17 05:35 Problem List - Problems (1) Pleural effusion Code(s): J90 - PLEURAL EFFUSION, NOT ELSEWHERE CLASSIFIED (2) Lung mass Code(s): R91.8 - OTHER NONSPECIFIC ABNORMAL FINDING OF LUNG FIELD (3) Tobacco abuse Code(s): Z72.0 - TOBACCO USE (4) Atrial fibrillation Code(s): I48.91 - UNSPECIFIED ATRIAL FIBRILLATION Qualifiers: Atrial fibrillation type: persistent Qualified Code(s): I48.1 - Persistent atrial fibrillation (5) HLD (hyperlipidemia) Code(s): E78.5 - HYPERLIPIDEMIA, UNSPECIFIED Qualifiers: Hyperlipidemia type: pure hypercholesterolemia Qualified Code(s): E78.00 - Pure hypercholesterolemia, unspecified; E78.0 - Pure hypercholesterolemia (6) HTN (hypertension) Code(s): I10 - ESSENTIAL (PRIMARY) HYPERTENSION Qualifiers: Hypertension type: essential hypertension Qualified Code(s): I10 - Essential (primary) hypertension Assessment/Plan (1) Pleural effusion Assessment/Plan: -concerning for malignant pleural effusion -will need thoracentesis, plan for tomorrow Code(s): J90 - PLEURAL EFFUSION, NOT ELSEWHERE CLASSIFIED (2) Lung mass Assessment/Plan: -appreciate oncology assistance -pleural fluid to be sent to cytology -will need outpatient follow up with possible PET scan Code(s): R91.8 - OTHER NONSPECIFIC ABNORMAL FINDING OF LUNG FIELD (3) Tobacco abuse Assessment/Plan: -now down to 5-6 cigarettes/day -counselled cessation Code(s): Z72.0 - TOBACCO USE (4) Atrial fibrillation Assessment/Plan: -rate controlled with cardizem and metoprolol -hold eliquis -case d/w Dr Munoz Code(s): I48.91 - UNSPECIFIED ATRIAL FIBRILLATION Qualifiers: Atrial fibrillation type: chronic Qualified Code(s): I48.2 - Chronic atrial fibrillation (5) HLD (hyperlipidemia) Assessment/Plan: -continue statin Code(s): E78.5 - HYPERLIPIDEMIA, UNSPECIFIED (6) HTN (hypertension) Assessment/Plan: -continue cardizem and metoprolol -continue lasix MWF Code(s): I10 - ESSENTIAL (PRIMARY) HYPERTENSION Qualifiers: Hypertension type: essential hypertension Qualified Code(s): I10 - Essential (primary) hypertension (7) Polycythemia -case d/w Dr Roland -may be primary or secondary to lung cancer -improved today
[2017-11-04] MEDS: POLYETHYLENE GLYCOL 3350 119 GM BTL PO SCH (21:52)
[2017-11-04] MEDS: ATORVASTATIN CA 20 MG TABLET (FP) PO SCH (22:02)
[2017-11-05 08:27] LABS: ANION GAP 8 (8-16); CALCIUM 8.7 mg/dL (8.5-10.1); CO2 27 mmol/L (21-32); CREATININE 0.7 mg/dL (0.55-1.02); GLUCOSE,RANDOM 79 mg/dL (74-106); MAGNESIUM 1.9 mg/dL (1.8-2.4); PHOSPHOROUS 3.9 mg/dL (2.5-4.9)
[2017-11-05 08:56] LABS: BASOPHIL 2.5 % (0-2.0); EOSINOPHIL 2.3 % (0-4.5); MCH 35.4 pg (25.7-33.7); MCHC 34.6 g/dl (32.0-36.0); MEAN CELL VOLUME 102.4 fl (80-96); MEAN PLT VOLUME 8.2 fl (7.5-11.1); PLATELET COUNT 275 K/MM3 (134-434); WHITE BLOOD COUNT 6.3 K/mm3 (4.0-10.0)
[2017-11-05] MEDS: DOCUSATE SODIUM 100 MG CAPSULE (FP) PO SCH ×2 (12:16→21:20)
[2017-11-05] MEDS: METOPROLOL TARTRATE 50 MG TABLET (FP) PO SCH ×2 (12:16→21:20)
[2017-11-05] MEDS: POLYETHYLENE GLYCOL 3350 119 GM BTL PO SCH ×2 (12:42→21:21)
--- NOTE | 2017-11-05 12:50 | PN ---
Progress Note, Physician Chief Complaint: Ms Nelson says she is still sob but improved after thoracentesis, but not much improved. No cp or n/v. - Current Medication List Current Medications: Active Medications Acetaminophen (Tylenol -) 650 mg PO Q4H PRN PRN Reason: FEVER OR PAIN Last Admin: 11/05/17 12:15 Dose: 650 mg Atorvastatin Calcium (Lipitor -) 20 mg PO HS [facility] Last Admin: 11/04/17 22:02 Dose: 20 mg Diltiazem HCl (Cardizem Cd -) 180 mg PO DAILY [facility] Last Admin: 11/05/17 12:16 Dose: 180 mg Docusate Sodium (Colace -) 100 mg PO BID [facility] Last Admin: 11/05/17 12:16 Dose: 100 mg Furosemide (Lasix -) 20 mg PO MoWeFr@1000 [facility] Last Admin: 11/04/17 09:38 Dose: 20 mg Metoprolol Tartrate (Lopressor -) 50 mg PO BID [facility] Last Admin: 11/05/17 12:16 Dose: 50 mg Ondansetron HCl (Zofran Injection) 4 mg IVPUSH Q6H PRN PRN Reason: NAUSEA Polyethylene Glycol (Miralax (For Daily Use) -) 17 gm PO BID [facility] Last Admin: 11/05/17 12:42 Dose: Not Given - Objective Vital Signs: Vital Signs Temperature 36.6 C 11/05/17 10:00 Pulse Rate 92 H 11/05/17 10:00 Respiratory Rate 18 11/05/17 10:00 Blood Pressure 129/72 11/05/17 10:00 O2 Sat by Pulse Oximetry (%) 96 11/05/17 09:00 Constitutional: Yes: Well Nourished, No Distress, Calm Cardiovascular: Yes: Pulse Irregular. No: Tachycardia, Gallop, Murmur, Rub Respiratory: Yes: Regular, Rhonchi (LLL), Other (decreased breath sounds L base) . No: CTA Bilaterally, Rales, Wheezes Gastrointestinal: Yes: Normal Bowel Sounds, Soft. No: Distention, Tenderness Extremities: Yes: WNL Edema: No Labs: CBC, BMP 11/05/17 06:00 11/05/17 06:00 INR, PTT INR 1.30 (0.82-1.09) H 11/04/17 05:35 Problem List - Problems (1) Pleural effusion Code(s): J90 - PLEURAL EFFUSION, NOT ELSEWHERE CLASSIFIED (2) Lung mass Code(s): R91.8 - OTHER NONSPECIFIC ABNORMAL FINDING OF LUNG FIELD (3) Tobacco abuse Code(s): Z72.0 - TOBACCO USE (4) Atrial fibrillation Code(s): I48.91 - UNSPECIFIED ATRIAL FIBRILLATION Qualifiers: Atrial fibrillation type: persistent Qualified Code(s): I48.1 - Persistent atrial fibrillation (5) HLD (hyperlipidemia) Code(s): E78.5 - HYPERLIPIDEMIA, UNSPECIFIED Qualifiers: Hyperlipidemia type: pure hypercholesterolemia Qualified Code(s): E78.00 - Pure hypercholesterolemia, unspecified; E78.0 - Pure hypercholesterolemia (6) HTN (hypertension) Code(s): I10 - ESSENTIAL (PRIMARY) HYPERTENSION Qualifiers: Hypertension type: essential hypertension Qualified Code(s): I10 - Essential (primary) hypertension Assessment/Plan (1) Pleural effusion Assessment/Plan: -concerning for malignant pleural effusion -s/p throacentesis -since still with shortness of breath, will get I/S to help expand lung -monitor today and plan for discharge tomorrow Code(s): J90 - PLEURAL EFFUSION, NOT ELSEWHERE CLASSIFIED (2) Lung mass Assessment/Plan: -appreciate oncology assistance -pleural fluid sent for cytology -will need outpatient follow up with possible PET scan Code(s): R91.8 - OTHER NONSPECIFIC ABNORMAL FINDING OF LUNG FIELD (3) Tobacco abuse Assessment/Plan: -now down to 5-6 cigarettes/day -counselled cessation Code(s): Z72.0 - TOBACCO USE (4) Atrial fibrillation Assessment/Plan: -rate controlled with cardizem and metoprolol -restart eliquis per cardiology and hematology Code(s): I48.91 - UNSPECIFIED ATRIAL FIBRILLATION Qualifiers: Atrial fibrillation type: chronic Qualified Code(s): I48.2 - Chronic atrial fibrillation (5) HLD (hyperlipidemia) Assessment/Plan: -continue statin Code(s): E78.5 - HYPERLIPIDEMIA, UNSPECIFIED (6) HTN (hypertension) Assessment/Plan: -continue cardizem and metoprolol -continue lasix MWF Code(s): I10 - ESSENTIAL (PRIMARY) HYPERTENSION Qualifiers: Hypertension type: essential hypertension Qualified Code(s): I10 - Essential (primary) hypertension (7) Polycythemia -case d/w Dr Roland -may be primary or secondary to lung cancer -stable
--- NOTE | 2017-11-05 12:59 | PN ---
Physical Exam: SUBJECTIVE: Patient seen and examined. No acute events overnight. Pt seen s/p thoracentesis. She states that symptoms are same as yesterday. No difference in SOB or cough. No new symptoms. OBJECTIVE: Vital Signs Period Temp Pulse Resp BP Sys/Sauer Pulse Ox Last 24 Hr 97.7 F-98.0 F 72-92 16-20 112-132/52-102 93-96 GENERAL: pleasant, elderly female, awake, alert, and fully oriented, in no acute distress. HEENT: moist mucous membranes, PEARLLA NECK: Normal range of motion, supple without lymphadenopathy, JVD, or masses. LUNGS: bandage overlying thoracentesis site. diffuse rales over left side HEART: irregularly irregular, no murmurs ABDOMEN: Soft, nontender, not distended, normoactive bowel sounds, no guarding, no rebound, no masses. No hepatomegaly or splenomegaly. MUSCULOSKELETAL: 1+ edema in b/l ankles, improved from yesterday NEUROLOGICAL: Cranial nerves II-XII intact. Normal speech. PSYCHIATRIC: Cooperative. Good eye contact. Appropriate mood and affect. SKIN: Warm, dry, normal turgor, no rashes or lesions noted. Laboratory Results - last 24 hr 11/05/17 11/05/17 06:00 06:00 WBC 6.3 RBC 4.57 D Hgb 16.2 H Hct 46.7 H D MCV 102.4 H MCH 35.4 H D MCHC 34.6 RDW 15.0 Plt Count 275 MPV 8.2 Neutrophils % 66.0 Lymphocytes % 14.6 Monocytes % 14.6 H Eosinophils % 2.3 Basophils % 2.5 H Sodium 140 Potassium 3.5 Chloride 105 Carbon Dioxide 27 Anion Gap 8 BUN 13 D Creatinine 0.7 Random Glucose 79 Calcium 8.7 Phosphorus 3.9 Magnesium 1.9 Active Medications Generic Name Dose Route Start Last Admin Trade Name Freq PRN Reason Stop Dose Admin Acetaminophen 650 mg 11/03/17 16:21 11/05/17 12:15 Tylenol - PO 650 mg Q4H PRN Administration FEVER OR PAIN Atorvastatin Calcium 20 mg 11/03/17 22:00 11/04/17 22:02 Lipitor - PO 20 mg HS M[facility]IE Administration Diltiazem HCl 180 mg 11/04/17 10:00 11/05/17 12:16 Cardizem Cd - PO 180 mg DAILY [facility] Administration Docusate Sodium 100 mg 11/03/17 17:00 11/05/17 12:16 Colace - PO 100 mg BID [facility] Administration Furosemide 20 mg 11/04/17 10:00 11/04/17 09:38 Lasix - PO 20 mg MoWeFr@1000 MANDE[facility] Administration Metoprolol Tartrate 50 mg 11/03/17 22:00 11/05/17 12:16 Lopressor - PO 50 mg BID [facility] Administration Ondansetron HCl 4 mg 11/03/17 16:21 Zofran Injection IVPUSH Q6H PRN NAUSEA Polyethylene Glycol 17 gm 11/04/17 22:00 11/05/17 12:42 Miralax (For Daily Use) - PO Not Given BID M[facility]IE CXR: effusion on left side, no pneumothorax ASSESSMENT/PLAN: 72F w/ 75 pack-year smoking hx, HTN, a-fib, and HLD presenting with SOB and multiple constitutional symptoms for past month. #SOB -2/2 large left-sided pleural effusion -CTA chest: left suprahilar spiculated soft tissue lesion, lymphadenopathy, large left sided pleural effusion, and trace right sided pleural effusion. -Suspicion is high for malignancy. pt has over 75 pack-year smoking hx, polycythemia, and a spiculated mass on CTA chest -diagnostic/therapeutic thoracentesis 11/05: 1L of straw colored fluid removed. sent to lab, results pending. If non-diagnostic, will bx via bronch. -O2 via NC if she starts desatting -duonebs PRN -lasix -incentive spirometry -rib series: no acute fracture Rest of care per medical team Case to be discussed with attending, Dr. Howell. Dispo: We will continue to follow the patient. Thank you for this consultative opportunity. -Albert Dumont MD PGY1 Pulmonology Team Visit type - Emergency Visit Emergency Visit: Yes ED Registration Date: 11/03/17 Care time: The patient presented to the Emergency Department on the above date and was hospitalized for further evaluation of their emergent condition. - New Patient This patient is new to me today: No - Critical Care Critical Care patient: No
[2017-11-05 13:16] LABS: GLUCOSE,PLEURAL FLUID 92.666; TOTAL PROTEIN,PLEURAL FLUID 3.468
--- NOTE | 2017-11-05 14:46 | PN ---
Progress Note (short form) - Note Progress Note: S/P Thoracentesis with removal of around 1 liter of pleural fluid. Protein ratio < .5, consistent with a transudate. Pleural LDH 289, no serum LDH available. Remainder of fluid analysis pending. CXR post procedure: No PTX, residual moderate left effusion OBJECTIVE: Intake & Output 11/02/17 11/03/17 11/04/17 11/05/17 23:59 23:59 23:59 23:59 Intake Total 250 300 Balance 250 300 Weight 130 lb 3.2 oz Last Vital Signs Temp Pulse Resp BP Pulse Ox 98.2 F 95 H 16 112/74 96 11/05/17 14:36 11/05/17 14:36 11/05/17 14:36 11/05/17 14:36 11/05/17 09:00 Active Medications Acetaminophen (Tylenol -) 650 mg PO Q4H PRN PRN Reason: FEVER OR PAIN Last Admin: 11/05/17 12:15 Dose: 650 mg Atorvastatin Calcium (Lipitor -) 20 mg PO HS [facility] Last Admin: 11/04/17 22:02 Dose: 20 mg Diltiazem HCl (Cardizem Cd -) 180 mg PO DAILY [facility] Last Admin: 11/05/17 12:16 Dose: 180 mg Docusate Sodium (Colace -) 100 mg PO BID [facility] Last Admin: 11/05/17 12:16 Dose: 100 mg Furosemide (Lasix -) 20 mg PO MoWeFr@1000 [facility] Last Admin: 11/04/17 09:38 Dose: 20 mg Metoprolol Tartrate (Lopressor -) 50 mg PO BID [facility] Last Admin: 11/05/17 12:16 Dose: 50 mg Ondansetron HCl (Zofran Injection) 4 mg IVPUSH Q6H PRN PRN Reason: NAUSEA Polyethylene Glycol (Miralax (For Daily Use) -) 17 gm PO BID [facility] Last Admin: 11/05/17 12:42 Dose: Not Given GENERAL: awake, alert, and fully oriented, in no acute distress. HEENT: moist mucous membranes NECK: Normal range of motion, supple without lymphadenopathy, JVD, or masses. LUNGS: bandage overlying thoracentesis site. Left basilar rhonchi HEART: irregularly irregular, no murmurs ABDOMEN: Soft, nontender, not distended, normoactive bowel sounds, no guarding, no rebound, no masses. No hepatomegaly or splenomegaly. MUSCULOSKELETAL: 1+ edema in b/l ankles, improved from yesterday NEUROLOGICAL: non-focal PSYCHIATRIC: Cooperative. Good eye contact. Appropriate mood and affect. SKIN: Warm, dry, normal turgor, no rashes or lesions noted. Laboratory Results - last 24 hr 11/05/17 11/05/17 11/05/17 06:00 06:00 11:12 WBC 6.3 RBC 4.57 D Hgb 16.2 H Hct 46.7 H D MCV 102.4 H MCH 35.4 H D MCHC 34.6 RDW 15.0 Plt Count 275 MPV 8.2 Neutrophils % 66.0 Lymphocytes % 14.6 Monocytes % 14.6 H Eosinophils % 2.3 Basophils % 2.5 H Sodium 140 Potassium 3.5 Chloride 105 Carbon Dioxide 27 Anion Gap 8 BUN 13 D Creatinine 0.7 Random Glucose 79 Calcium 8.7 Phosphorus 3.9 Magnesium 1.9 Pleural Total Protein 3.468 Pleural Albumin 2 Pleural LDH 289 Pleural Glucose 92.666 Pleural Amylase 23.391 Pleural Triglycerides 21 ASSESSMENT/PLAN: Suspected malignant left effusion Left suprahilar spiculated mass Mediastinal lymphadenopathy HTN AFib HPL 75 pack year smoking history Follow cytology and cultures O2 as needed BD TX PRN Monitor off ABX If pleural cytology is negative, will need tissue diagnosis Dr Howell
[2017-11-05 15:12] LABS: PLEURAL FLUID APPEARANCE CLOUDY; PLEURAL FLUID COLOR YELLOW; PLEURAL FLUID SOURCE LEFT PLEURAL
[2017-11-05 21:02] LABS: PLEURAL FLUID NEUTROPHIL 0 %
[2017-11-05 21:03] LABS: PLEURAL FLUID LYMPHOCYTES 52 %; PLEURAL FLUID MACROPHAGES 5 %
[2017-11-05] MEDS: ATORVASTATIN CA 20 MG TABLET (FP) PO SCH (21:20)
--- NOTE | 2017-11-05 23:21 | PN ---
Progress Note (short form) - Note Progress Note: Patient seen and examined Denies any fever/chills/cough/SOB/abdominal pain/nausea/vomiting/diarrhea s/p thoracentesis Last Vital Signs Temp Pulse Resp BP Pulse Ox 97.3 F L 82 20 126/98 995 H 11/05/17 17:01 11/05/17 17:01 11/05/17 17:01 11/05/17 17:01 11/05/17 21:00 Cor: RSR, No murmurs, No gallops Lungs: Clear to P&A Abd: Soft, Normal bowel sounds, No organomegaly Home Medication List Medication Instructions Recorded Confirmed Type Atorvastatin Ca [Lipitor] 20 mg PO HS 11/03/17 11/03/17 History Diltiazem Cd [Cardizem Cd -] 180 mg PO DAILY 11/03/17 11/03/17 History Furosemide [Lasix] 20 mg PO UTDICT 11/03/17 11/03/17 History Metoprolol Tartrate [Lopressor -] 50 mg PO BID 11/03/17 11/03/17 History Pravastatin Sodium [Pravachol (Nf)] 80 mg PO HS 11/03/17 11/03/17 History Active Medications Generic Name Dose Route Start Last Admin Trade Name Freq PRN Reason Stop Dose Admin Acetaminophen 650 mg 11/03/17 16:21 11/05/17 12:15 Tylenol - PO 650 mg Q4H PRN Administration FEVER OR PAIN Atorvastatin Calcium 20 mg 11/03/17 22:00 11/05/17 21:20 Lipitor - PO 20 mg HS MANDIE Administration Diltiazem HCl 180 mg 11/04/17 10:00 11/05/17 12:16 Cardizem Cd - PO 180 mg DAILY [facility] Administration Docusate Sodium 100 mg 11/03/17 17:00 11/05/17 21:20 Colace - PO 100 mg BID [facility] Administration Furosemide 20 mg 11/04/17 10:00 11/04/17 09:38 Lasix - PO 20 mg MoWeFr@1000 M[facility]IE Administration Metoprolol Tartrate 50 mg 11/03/17 22:00 11/05/17 21:20 Lopressor - PO 50 mg BID [facility] Administration Ondansetron HCl 4 mg 11/03/17 16:21 Zofran Injection IVPUSH Q6H PRN NAUSEA Polyethylene Glycol 17 gm 11/04/17 22:00 11/05/17 21:21 Miralax (For Daily Use) - PO Not Given BID [facility]IE A.P 72 y/o with suprahilar mass/afib s/p thoracentesis await pathology
[2017-11-06] MEDS: POLYETHYLENE GLYCOL 3350 119 GM BTL PO SCH (10:01)
[2017-11-06] MEDS: METOPROLOL TARTRATE 50 MG TABLET (FP) PO SCH (10:01)
[2017-11-06] MEDS: FUROSEMIDE 20 MG TABLET (FP) PO SCH (10:01)
[2017-11-06] MEDS: DOCUSATE SODIUM 100 MG CAPSULE (FP) PO SCH (10:01)
--- NOTE | 2017-11-06 10:49 | PN ---
Progress Note, Physician History of Present Illness: s/p thoracentesis with removal of around 1 liter of pleural fluid with transudate characteristics with mild improvement in dyspnea. - Current Medication List Current Medications: Active Medications Acetaminophen (Tylenol -) 650 mg PO Q4H PRN PRN Reason: FEVER OR PAIN Last Admin: 11/05/17 12:15 Dose: 650 mg Atorvastatin Calcium (Lipitor -) 20 mg PO HS [facility] Last Admin: 11/05/17 21:20 Dose: 20 mg Diltiazem HCl (Cardizem Cd -) 180 mg PO DAILY [facility] Last Admin: 11/06/17 10:01 Dose: 180 mg Docusate Sodium (Colace -) 100 mg PO BID [facility] Last Admin: 11/06/17 10:01 Dose: 100 mg Furosemide (Lasix -) 20 mg PO MoWeFr@1000 [facility] Last Admin: 11/06/17 10:01 Dose: 20 mg Metoprolol Tartrate (Lopressor -) 50 mg PO BID [facility] Last Admin: 11/06/17 10:01 Dose: 50 mg Ondansetron HCl (Zofran Injection) 4 mg IVPUSH Q6H PRN PRN Reason: NAUSEA Polyethylene Glycol (Miralax (For Daily Use) -) 17 gm PO BID [facility] Last Admin: 11/06/17 10:01 Dose: 17 gm - Objective Vital Signs: Vital Signs Temperature 97.7 F 11/06/17 01:00 Pulse Rate 87 11/06/17 01:00 Respiratory Rate 20 11/06/17 01:00 Blood Pressure 134/96 11/06/17 01:00 O2 Sat by Pulse Oximetry (%) 995 H 11/05/17 21:00 Constitutional: Yes: No Distress, Calm, Thin Neck: Yes: Supple Cardiovascular: Yes: Pulse Irregular Respiratory: Yes: Regular, Diminished Gastrointestinal: Yes: Normal Bowel Sounds, Soft Edema: No Labs: CBC, BMP 11/05/17 06:00 11/05/17 06:00 INR, PTT INR 1.30 (0.82-1.09) H 11/04/17 05:35 Problem List - Problems (1) Atrial fibrillation Code(s): I48.91 - UNSPECIFIED ATRIAL FIBRILLATION Qualifiers: Atrial fibrillation type: persistent Qualified Code(s): I48.1 - Persistent atrial fibrillation (2) HLD (hyperlipidemia) Code(s): E78.5 - HYPERLIPIDEMIA, UNSPECIFIED Qualifiers: Hyperlipidemia type: pure hypercholesterolemia Qualified Code(s): E78.00 - Pure hypercholesterolemia, unspecified; E78.0 - Pure hypercholesterolemia (3) Lung mass Code(s): R91.8 - OTHER NONSPECIFIC ABNORMAL FINDING OF LUNG FIELD (4) Pleural effusion Code(s): J90 - PLEURAL EFFUSION, NOT ELSEWHERE CLASSIFIED (5) Tobacco abuse Code(s): Z72.0 - TOBACCO USE (6) HTN (hypertension) Code(s): I10 - ESSENTIAL (PRIMARY) HYPERTENSION Qualifiers: Hypertension type: essential hypertension Qualified Code(s): I10 - Essential (primary) hypertension (7) Diastolic dysfunction Code(s): I51.9 - HEART DISEASE, UNSPECIFIED Assessment/Plan 02/20/2016 Normal LV size and fxn, borderline TRACIE, severe TR, mild TR RVSP 40-50 mmHg 1. Left pleural effusion with suprahilar lung mass s/p thoracentesis 2. HTN/HCVD 3. Chronic diastolic dysfunction 4. Persistent Afib off Eliquis pre-procedure 5. Hyperlipidemia 6. Tobacco abuse PLAN: 1. Resume Eliquis 5 bid today 2. Continue Cardizem CD 180 qd, Lopressor 50 bid, increase Lasix 20 qd, Lipitor 20 qhs 3. Smoking cessation 4. F/u cytopathology and cultures, may need tissue biopsy if unrevealing 5. D/c planning, patient anxious to return home
[2017-11-06] MEDS ORDERED: APIXABAN 5 MG TABLET PO SCH ×2 (11:04→22:00)
--- NOTE | 2017-11-06 12:15 | PN ---
Progress Note (short form) - Note Progress Note: PULMONARY WANTS TO GO HOME VSS/AFEBRILE ANICTERIC DIMINISHED BREATH SOUNDS LEFT BASE S1S2 BS+ SOFT LESS EDEMA LABS/MEDS/NOTES/REVIEWED LARGE VOLUME PLEURAL EFFUSION WITH LUNG MASS IN AN ACTIVE SMOKER AFIB ON ELIQUIS HTN HPL LIKELY COPD STABLE POST DIAGNOSTIC/THERAPEUTIC THORACENTESIS PATIENT IS LOW RISK FOR BLEEDING RIGHT RIB SERIES NEGATIVE FOR FX CAN AWAIT CYTOLOGY AN OUTPATIENT WOULD FAVOR EXUDATIVE EFFUSION/LYMPHOCYTIC PREDOMINATE SERUM PROTEIN 6.9 / FLUID 3.46 CHECK SERUM LDH R ANGLE MAYA Problem List - Problems (1) Atrial fibrillation Code(s): I48.91 - UNSPECIFIED ATRIAL FIBRILLATION Qualifiers: Atrial fibrillation type: persistent Qualified Code(s): I48.1 - Persistent atrial fibrillation (2) HLD (hyperlipidemia) Code(s): E78.5 - HYPERLIPIDEMIA, UNSPECIFIED Qualifiers: Hyperlipidemia type: pure hypercholesterolemia Qualified Code(s): E78.00 - Pure hypercholesterolemia, unspecified; E78.0 - Pure hypercholesterolemia (3) Lung mass Code(s): R91.8 - OTHER NONSPECIFIC ABNORMAL FINDING OF LUNG FIELD (4) Pleural effusion Code(s): J90 - PLEURAL EFFUSION, NOT ELSEWHERE CLASSIFIED (5) Tobacco abuse Code(s): Z72.0 - TOBACCO USE (6) Abdominal pain Code(s): R10.9 - UNSPECIFIED ABDOMINAL PAIN (7) Atrial fibrillation with rapid ventricular response Code(s): I48.91 - UNSPECIFIED ATRIAL FIBRILLATION
--- NOTE | 2017-11-06 12:29 | DS ---
Physical Examination Vital Signs: Vital Signs Temperature 36.5 C 11/06/17 01:00 Pulse Rate 87 11/06/17 01:00 Respiratory Rate 20 11/06/17 01:00 Blood Pressure 134/96 11/06/17 01:00 O2 Sat by Pulse Oximetry (%) 995 H 11/05/17 21:00 Constitutional: Yes: Well Nourished, No Distress, Calm Cardiovascular: Yes: Regular Rate and Rhythm. No: Gallop, Murmur, Rub Respiratory: Yes: Regular, CTA Bilaterally. No: Rales, Rhonchi, Wheezes Gastrointestinal: Yes: Normal Bowel Sounds, Soft. No: Distention, Tenderness Extremities: Yes: WNL Edema: No Labs: CBC, BMP 11/05/17 06:00 11/05/17 06:00 Discharge Summary Reason For Visit: PLEURAL EFFUSION,SUSPECTED MALIGNANT NEOPLASM Current Active Problems Atrial fibrillation (Acute) Diastolic dysfunction (Acute) HLD (hyperlipidemia) (Acute) Lung mass (Acute) Pleural effusion (Acute) Tobacco abuse (Acute) Hospital Course: (1) Pleural effusion Code(s): J90 - PLEURAL EFFUSION, NOT ELSEWHERE CLASSIFIED (2) Lung mass Code(s): R91.8 - OTHER NONSPECIFIC ABNORMAL FINDING OF LUNG FIELD (3) Tobacco abuse Code(s): Z72.0 - TOBACCO USE (4) Atrial fibrillation Code(s): I48.91 - UNSPECIFIED ATRIAL FIBRILLATION Qualifiers: Atrial fibrillation type: persistent Qualified Code(s): I48.1 - Persistent atrial fibrillation (5) HLD (hyperlipidemia) Code(s): E78.5 - HYPERLIPIDEMIA, UNSPECIFIED Qualifiers: Hyperlipidemia type: pure hypercholesterolemia Qualified Code(s): E78.00 - Pure hypercholesterolemia, unspecified; E78.0 - Pure hypercholesterolemia (6) HTN (hypertension) Code(s): I10 - ESSENTIAL (PRIMARY) HYPERTENSION Qualifiers: Hypertension type: essential hypertension Qualified Code(s): I10 - Essential (primary) hypertension Ms Nelson is a very pleasant 72 year old female who came in with shortness of breath and was found to have a pleural effusion with a spiculated mass. She was admitted for thoracentesis because she was high risk for outpatient procedure considering her chronic use of eliquis, her severe shortness of breath on exam, and her polycythemia. She was seen by pulmonary, cardiology, and oncology. Her eliquis was held and she underwent thoracentesis without difficulty. She was monitored for 24 hours and weaned off of oxygen. She is currently stable for discharge home. Her cytology is pending and she was instructed to follow up with both Dr Aleman and oncology concerning these results. 31 minutes spent in preparation of this discharge Condition: Stable - Instructions Diet, Activity, Other Instructions: resume previous diet and activity. Stop smoking. Follow up with oncology next week for results of fluid. Follow up with Dr Kay in 7 days. Referrals: Lukas Benjamin MD [Staff Physician] - Kia Aleman MD [Non Staff, Medical] - Eulalio Rooney MD [Staff Physician] - Avtar Munoz MD [Staff Physician] - Disposition: HOME - Home Medications Comprehensive Discharge Medication List: Ambulatory Orders Apixaban [Eliquis -] 5 mg PO BID #60 tablet 02/23/16 Diltiazem Cd [Cardizem Cd -] 180 mg PO DAILY 11/03/17 Furosemide [Lasix] 20 mg PO UTDICT 11/03/17 Metoprolol Tartrate [Lopressor -] 50 mg PO BID 11/03/17 Pravastatin Sodium [Pravachol -] 80 mg PO HS 11/03/17
[2017-11-06 13:52] VITALS: BP 144/90; PULSE 92; TEMP 98.2
[2017-11-07] MEDS ORDERED: FUROSEMIDE 20 MG TABLET (FP) PO SCH (10:00)
--- NOTE | 2017-11-10 18:06 | PATH ---
Cytology Non-Gynecological Report Patient Name: VIRGILIO JEWELL Med. Rec. #: [id number] /Age/Gender: 1945 (Age: 72) / F Account: [id number] Location: [facility] MED/SURG Taken: 11/05/2017 Received: 11/05/2017 Reported: 11/10/2017 Physicians: Lencho Beard M.D. Specimen(s) Received A: PLEURAL FLUID LEFT B: PLEURAL FLUID LEFT Clinical History Pleural effusion Final Diagnosis A & B. PLEURAL FLUID, LEFT, THORACENTESIS: SATISFACTORY FOR EVALUATION NO MALIGNANT CELLS IDENTIFIED. REACTIVE MESOTHELIAL CELLS, NUMEROUS MACROPHAGES, AND LYMPHOCYTES PRESENT. Comment: Immunohistochemical stains performed at [place], [place] ([id number]) and interpreted at [facility] show numerous CD68+ macrophages and scattered mesothelial cells which stain for D2-40 and calretinin. Rare cells stain for LI. MOC31 is negative. Louis-EP4 is non-contributory due to high background staining. Recommend correlation with clinical findings and follow up as clinically indicated. Electronically Signed Kia Fowler M.D. Gross Description A. Approximately 50 cc of yellow fluid received fixed in 50% alcohol. Two cytofunnels and one cellblock prepared. B. Approximately 1000 cc of yellow fluid received fresh. Two cytofunnels and one cellblock prepared.
== END 2017-11-06 18:07 | disposition home or self-care (01) | DRG 188 ==
LOC: JER 10:46 → JERBED 16:45 → J8W 22:37
PROVIDERS: ADMIT Internal Medicine; ATTEND Internal Medicine
PROC: 0W9B3ZX Drainage of Left Pleural Cavity, Percutaneous Approach, Diagnostic (ICD-10-PCS; principal; 2017-11-05)
DX: J90 Pleural effusion, not elsewhere classified (principal); E78.5 Hyperlipidemia, unspecified; I48.2 Chronic atrial fibrillation; R91.8 Other nonspecific abnormal finding of lung field; R63.4 Abnormal weight loss; Z68.22 Body mass index [BMI] 22.0-22.9, adult; J44.9 Chronic obstructive pulmonary disease, unspecified; F17.210 Nicotine dependence, cigarettes, uncomplicated; N95.8 Other specified menopausal and perimenopausal disorders; I11.9 Hypertensive heart disease without heart failure; D75.1 Secondary polycythemia; R59.1 Generalized enlarged lymph nodes
CPT/HCPCS: 36415; 71010-TC; 71101-TC-RT; 71275-TC; 74177-TC; 76942; 80048; 80053; 82042; 82150; 82945; 83615; 83735; 83880; 84100; 84157; 84478; 84484; 85025; 85610; 85730; 86850; 86900; 86901; 87070; 87075; 87102; 87116; 87205; 87206; 87210; 88108; 88305-TC; 89051; 93005; 93010; 94010; 99282-25

== ENCOUNTER 2017-11-20 08:31 | Day surgery (SDC) | payer OTHER ==
[2017-11-19 14:26] VITALS: BMI 21.1
[2017-11-20 09:12] VITALS: TEMP 97
[2017-11-20 12:10] LABS: PLEURAL FLUID APPEARANCE HAZY; PLEURAL FLUID COLOR YELLOW; PLEURAL FLUID SOURCE PLEURAL
[2017-11-20 12:42] LABS: GLUCOSE,PLEURAL FLUID 97.859; TOTAL PROTEIN,PLEURAL FLUID 3.737
[2017-11-20] MEDS ORDERED: ACETAMINOPHEN 325 MG TABLET (FP) ONE (12:49)
[2017-11-20 14:36] LABS: PLEURAL FLUID LYMPHOCYTES 76 %; PLEURAL FLUID MACROPHAGES 23 %; PLEURAL FLUID NEUTROPHIL 1 %
[2017-11-20 17:30] VITALS: BP 125/87; PULSE 99
--- NOTE | 2017-11-24 14:29 | PATH ---
Cytology Non-Gynecological Report Patient Name: VIRGILIO JEWELL [facility]. Rec. #: [id number] /Age/Gender: 1945 (Age: 72) / F Account: [id number] Location: RADIOLOGY Taken: 11/20/2017 Received: 11/20/2017 Reported: 11/24/2017 Physicians: Aravind Anderson M.D. Specimen(s) Received A: PLEURAL FLUID B: PLEURAL FLUID Clinical History Pleural effusion Final Diagnosis A & B: PLEURAL FLUID, THORACENTESIS: SATISFACTORY FOR EVALUATION. NO MALIGNANT CELLS IDENTIFIED. FEW MESOTHELIAL CELLS, MACROPHAGES AND MANY LYMPHOCYTES PRESENT. DEGENERATIVE CHANGES PRESENT. Comment: Prior material is noted ([id number]). Electronically Signed Kia Fowler M.D. Gross Description A. Approximately 50 cc of yellow fluid received fixed in 50% alcohol. Two cytofunnels and one cellblock prepared. B. Approximately 1500 cc of yellow fluid received fresh. Two cytofunnels and one cellblock prepared.
== END 2017-11-20 13:15 | disposition home or self-care (01) ==
LOC: JRADIR 08:31
PROVIDERS: ATTEND Internal Medicine Pulmonary Disease
PROC: 0W9B3ZZ Drainage of Left Pleural Cavity, Percutaneous Approach (ICD-10-PCS; principal; 2017-11-20)
DX: J90 Pleural effusion, not elsewhere classified (principal)
CPT/HCPCS: 71010-TC; 76942; 82042; 82150; 82945; 83615; 84157; 84478; 87070; 87075; 87102; 87116; 87205; 87206; 87210; 87899; 88108; 88305-TC; 89051

== ENCOUNTER 2017-12-08 05:23 | Inpatient (IN) | payer OTHER ==
[2017-12-02 14:29] VITALS: BMI 20.9
[2017-12-08] MEDS ORDERED: MIDAZOLAM HCL 2 MG/2 ML SINGLE DOSE VIAL ONE (06:53)
[2017-12-08] MEDS ORDERED: SUCCINYLCHOLINE CHLORIDE 200 MG/10 ML VIAL ONE (06:54)
[2017-12-08] MEDS ORDERED: DEXAMETHASONE SOD PHOSPHATE 4 MG/1 ML VIAL ONE (06:54)
[2017-12-08] MEDS ORDERED: LIDOCAINE HCL/PF 2% SDV 5ML VIAL ONE (06:54)
[2017-12-08] MEDS ORDERED: KETOROLAC TROMETHAMINE 30 MG/1 ML VIAL ONE (06:54)
[2017-12-08] MEDS ORDERED: PROPOFOL 20 ML ONE ×2 (06:55→08:56)
[2017-12-08] MEDS ORDERED: SODIUM CHLORIDE 0.9% P/F 10 ML VIAL IJ ONE (06:55)
[2017-12-08] MEDS ORDERED: NEOSTIGMINE METHYLSULFATE 0.5 MG/ML - 10 ML MDV ONE (06:57)
[2017-12-08] MEDS ORDERED: GLYCOPYRROLATE 0.2 MG/1 ML VIAL ONE (06:57)
[2017-12-08] MEDS ORDERED: ONDANSETRON 4 MG/2 ML VIAL IVPUSH PRN ×2 (07:04→10:10)
[2017-12-08] MEDS ORDERED: oxyCODONE HCL 5 MG TABLET PO PRN ×2 (07:04→10:09)
[2017-12-08] MEDS ORDERED: BUPIVACAINE HCL/PF 0.5% (5MG/ML) 10 ML VIAL ONE (07:13)
[2017-12-08] MEDS ORDERED: LIDOCAINE HCL 1%, 10 MG/ML (20ML VIAL) ONE (07:13)
[2017-12-08] MEDS ORDERED: LACTATED RINGERS SOLUTION 1,000 ML IV SCH (07:15)
--- NOTE | 2017-12-08 07:56 | HP ---
History & Physical Update - History History: No Change - Physical Physical: No Change - Assessment Assessment: No Change - Plan Plan: No Change
[2017-12-08] MEDS ORDERED: ROCURONIUM BROMIDE 50 MG/5 ML VIAL ONE ×2 (08:11→08:54)
[2017-12-08] MEDS ORDERED: PHENYLEPHRINE HCL 10 MG/1 ML SINGLE DOSE VIAL ONE (08:38)
[2017-12-08] MEDS ORDERED: ceFAZolin SODIUM 1 GM VIAL ONE (08:40)
[2017-12-08] MEDS ORDERED: ceFAZolin SODIUM 1 GM VIAL IVPB ONE (08:41)
[2017-12-08] MEDS ORDERED: BUPIVACAINE HCL/PF (5 MG/ML) 30 ML VIAL IJ ONE (08:46)
[2017-12-08] MEDS ORDERED: LIDOCAINE HCL 1%, 10 MG/ML (50 mL VIAL) IJ ONE (08:46)
--- NOTE | 2017-12-08 09:49 | OP ---
Operative Note - Note: Operative Date: 12/08/17 Pre-Operative Diagnosis: Recurrent pleural effusion Operation: Bronchoscopy, left vats, pleural bx, intercostal nerve block, pleur- x catheter placement Findings: Serous fluid in chest ~2L, multiple pleural nodules (frozen suspicious), lung did not expand completely at completion of procedure. Post-Operative Diagnosis: Same as Pre-op Surgeon: Tj Bui Wrapper Sorter: Velia Brown Anesthesia: General Estimated Blood Loss (mls): 10 Drains & Tubes with Location: Pleur-x in left chest
[2017-12-08] MEDS ORDERED: ACETAMINOPHEN 325 MG TABLET (FP) PO PRN (09:54)
[2017-12-08] MEDS ORDERED: D5-1/2NS+20 MEQ KCL - 20 MEQ/1,000 ML INFUS.BAG IV SCH (10:15)
--- NOTE | 2017-12-08 10:53 | PN ---
Progress Note (short form) - Note Progress Note: Patient seen and examined in the recovery room. ROS unobtainable, as pt is drowsy. Temp Pulse Resp BP Pulse Ox 97.5 F L 83 16 101/68 94 L 12/08/17 09:52 12/08/17 09:52 12/08/17 09:52 12/08/17 09:52 12/08/17 09:52 Current Medications Generic Name Dose Route Start Last Admin Trade Name Freq PRN Reason Stop Dose Admin Acetaminophen 650 mg 12/08/17 09:54 Tylenol - PO Q6H PRN PAIN LEVEL 1 - 3 Chlorhexidine Gluconate 1 applic 12/08/17 22:00 Hibiclens For Decolonization - TP HS MANDIE Diltiazem HCl 180 mg 12/09/17 10:00 Cardizem Cd - PO DAILY MANDIE Fentanyl 25 mcg 12/08/17 07:04 Sublimaze Injection - IVPUSH [id number] PRN PAIN Folic Acid 1 mg 12/09/17 10:00 Folic Acid - PO DAILY [facility] Heparin Sodium (Porcine) 5,000 unit 12/08/17 22:00 Heparin - SQ BID MANDIE Lactated Ringer's 1,000 mls @ 75 mls/hr 12/08/17 07:15 Lactated Ringers Solution IV ASDIR [facility] Potassium Chloride/Dextrose/Sod Cl 20 meq in 1,000 mls @ 75 mls/hr 12/08/17 10 :15 D5-1/2ns+20 Meq Kcl - IV ASDIR MANDIE Metoprolol Tartrate 50 mg 12/08/17 22:00 Lopressor - PO BID MANDIE Mupirocin 1 applic 12/08/17 10:00 Bactroban Ointment (For Decolonization) - NS 12/13/17 09:59 BID MANDIE Non-Formulary Medication 20 mg 12/08/17 22:00 Pravastatin Sodium PO HS MANDIE Ondansetron HCl 4 mg 12/08/17 10:10 Zofran Injection IVPUSH Q6H PRN NAUSEA AND/OR VOMITING Oxycodone HCl 5 mg 12/08/17 10:09 Roxicodone - PO Q6H PRN PAIN LEVEL 4 - 6 Pantoprazole Sodium 20 mg 12/09/17 10:00 Protonix - PO DAILY MANDIE Highly suspicious for advanced lung malignancy, prior cytology negative. Now s/p POD 0 for VATS/Pleurex by will f.u on the pathology MRI brain negative for mets, has chronic infarct/HTN changes/Neuro consult pain control, post op care appreciate CTS/ICU/Primary OP f/u with will follow
--- NOTE | 2017-12-08 11:12 | SURG ---
Surgery Brush Machine Setter Note Brush Machine Setter: Velia Brown PA-C Date of Service: 12/08/17 Diagnosis: Recurrent pleural effusion Procedure: Bronchoscopy, left vats, pleural bx, intercostal nerve block, pleur-x catheter placement I was present for the entirety of the operative procedure. For further detail, please refer to operative report. Visit type - Case Type Case Type: Scheduled Admission - Emergency Emergency Visit: No - New patient This patient is new to me today: Yes Date on this admission: 12/08/17
--- NOTE | 2017-12-08 13:51 | HP ---
Admitting History and Physical - Primary Care Physician PCP: Kia Aleman - Admission Chief Complaint: I'm doing well History of Present Illness: Ms Nelson is a very pleasant 72 year old female who comes in after pleural biopsy and pleurex catheter placement. I am seeing post surgery and she is without complaint. She denies fevers, chills, lightheadedness, dizziness, chest pain or pressure, shortness of breath, nausea, vomiting, diarrhea, constipation , difficulty or pain on urination, or swelling. She says she has been doing well as an outpatient and without complaint. Her only complaint today is that she cannot see well because she does not have her glasses. History Source: Patient Limitations to Obtaining History: No Limitations - Past Medical History Cardiovascular: Yes: AFIB, HTN, Hyperlipdemia Pulmonary: Yes: COPD. No: O2 Dependent - Past Surgical History Past Surgical History: Yes: Cholecystectomy - Smoking History Smoking history: Former smoker Have you smoked in the past 12 months: Yes Aproximately how many cigarettes per day: 5 If you are a former smoker, when did you quit?: 11/03/17 - Alcohol/Substance Use Hx Alcohol Use: No History of Substance Use: reports: None - Social History ADL: Independent Occupation: retired History of Recent Travel: Yes (to [place]) Home Medications - Allergies Allergies/Adverse Reactions: Allergies Allergy/AdvReac Type Severity Reaction Status Date / Time No Known Allergies Allergy Verified 12/08/17 06:32 - Home Medications Home Medications: Ambulatory Orders Apixaban [Eliquis -] 5 mg PO BID #60 tablet 02/23/16 Diltiazem Cd [Cardizem Cd -] 180 mg PO DAILY 11/03/17 Furosemide [Lasix] 20 mg PO DAILY 11/03/17 Metoprolol Tartrate [Lopressor -] 50 mg PO BID 11/03/17 Pravastatin Sodium [Pravachol -] 20 mg PO HS 11/03/17 Folic Acid 1 mg PO DAILY 11/19/17 Omeprazole 20 mg PO DAILY 11/19/17 Family Disease History - Family Disease History Family Disease History: Heart Disease: Mother (CHF) Review of Systems Findings/Remarks: Full review of systems obtained, as per HPI and otherwise negative Physical Examination Vital Signs: Vital Signs Temperature 36.4 C L 12/08/17 09:52 Pulse Rate 66 12/08/17 12:35 Respiratory Rate 16 01/09/18 12:35 Blood Pressure 111/68 12/08/17 12:35 O2 Sat by Pulse Oximetry (%) 96 12/08/17 12:35 Constitutional: Yes: No Distress, Calm, Thin Eyes: Yes: Conjunctiva Clear, EOM Intact, PERRL HENT: Yes: Atraumatic, Normocephalic Cardiovascular: Yes: Regular Rate and Rhythm. No: Gallop, Murmur, Rub Respiratory: Yes: Regular, CTA Bilaterally, Other (pleurex catheter). No: Rales , Rhonchi, Wheezes Gastrointestinal: Yes: Normal Bowel Sounds, Soft. No: Distention, Tenderness Extremities: Yes: WNL Edema: No Imaging - Results Chest X-ray: Report Reviewed, Image Reviewed Problem List - Problems (1) Lung mass Assessment/Plan: -with pleural masses -s/p biopsy -follow up biopsy Code(s): R91.8 - OTHER NONSPECIFIC ABNORMAL FINDING OF LUNG FIELD (2) Pleural effusion Assessment/Plan: -chest tube placed -case d/w CT surgery Code(s): J90 - PLEURAL EFFUSION, NOT ELSEWHERE CLASSIFIED (3) Atrial fibrillation Assessment/Plan: -sounded in sinus rhythm on exam but telemetry afib -continue metoprolol and diltiazem -holding eliquis, restart when safe per CT surgery standpoint Code(s): I48.91 - UNSPECIFIED ATRIAL FIBRILLATION Qualifiers: Atrial fibrillation type: persistent Qualified Code(s): I48.1 - Persistent atrial fibrillation (4) HTN (hypertension) Assessment/Plan: -well controlled -continue diltiazem and metoprolol Code(s): I10 - ESSENTIAL (PRIMARY) HYPERTENSION Qualifiers: Hypertension type: essential hypertension Qualified Code(s): I10 - Essential (primary) hypertension (5) HLD (hyperlipidemia) Assessment/Plan: -continue statin Code(s): E78.5 - HYPERLIPIDEMIA, UNSPECIFIED Qualifiers: Hyperlipidemia type: pure hypercholesterolemia Qualified Code(s): E78.00 - Pure hypercholesterolemia, unspecified; E78.0 - Pure hypercholesterolemia
--- NOTE | 2017-12-08 14:28 | OPR ---
Patient Name: Tiffany Nelson MR#: [id number] Procedure Date: 12/08/17 Preoperative Diagnosis: Recurrent left pleural effusion Postoperative Diagnosis: Same Procedure: 1. Bronchoscopy; 2. Left thoracoscopy with pleural biopsy; 3. Intercostal nerve block; 4. Placement of left Pleur-x catheter. Indication: Diagnosis, stage, treat effusion Surgeon(s): Tj Bui MD Cosurgeon: kim Bindery Production Manager Surgeon: Velia Brown Anesthesia: General endotracheal with gregory; Findings: Normal bronchial anatomy with exception of LLL bronchus which was collapsed but could be intubated; ~2L of serous fluid in chest; Multiple nodules on parietal and visceral pleura. Specimens Sent: 1. Bronchial washings; 2. Pleural fluid; 3. Pleural biopsies for frozen; 4. Pleural biopsies for permanent; Complications: none Drains / Tubes / Catheters: Pleur-X catheter. Hardware / Implants: na Blood / Fluid Losses: minimal Post-Operative Condition: Hemodynamically stable in transfer to PACU and extubated Indications: This patient is a 72 year-old female former smoker who presented with a recurrent cytology-negative effusion. She was referred from Dr. Benjamin for diagnosis, staging, and treatment of a left pleural effusion. After informed consent was obtained, and she understood, she was taken to the operating room for a bronchoscopy, vats pleural biopsy, placement of Pleur-x catheter. Details of Procedure: The patient was taken into the operating room and placed supine on the table. She was monitored with pulse oximetry and blood pressure monitoring. Preoperative antibiotics and subcutaneous heparin were given. She was intubated after being given intravenous sedation. A bronchoscopy was performed. Her anatomy was normal with the exception of the left lower lobe bronchus orifice being narrowed (presumably by fluid compression). Bronchial washings were sent from this side. We then positioned her in the right lateral decubitus position. After being prepared and draped, we began by injecting lidocaine mixed with bupivacaine in ~ 7th intercostal space inferior to the tip of the scapula. We then made an incision and drained ~2L of serous effusion while inserting a 5mm camera. Pleural biopsies were done. Hemostasis was achieved with the cautery. We next performed an intercostal block of the rib space of the main port and the two spaces both above and below. We then placed a tunneled Pleur-x catheter after injecting the tunnel with local anesthesia and secured it. Frozen section was suspicious for cancer. The wound was closed with absorbable sutures. Sterile dressings were placed. She was transferred to the PACU extubated and in hemodynamically stable condition.
--- NOTE | 2017-12-08 16:57 | CON.PULM ---
Consult Consult Specialty:: PULMONARY Referred by:: Dr. Beard Reason for Consultation:: post op VATS/pleural effusion - History of Present Illness Chief Complaint: lung mass History of Present Illness: 72yo female with h/o HTN, hyperlipidemia, atrial fibrillation, recent hospitalizations with exudative pleural effusions with nondiagnostic thoracenteses who was electively admitted for bronchoscopy and left VATS. Found to have serous pleural fluid and multiple pleural nodules with frozen sections suspicious for malignancy s/p pleural biopsies, intercostal nerve block and pleur-x catheter placement. Seen post op in the PACU, pain adequately controlled. Denies shortness of breath, cough or chest pain. No fevers or chills. Post op CXR showing loculated left basilar pneumothorax, per surgeon report lung did not expand completely at the end of the procedure. - History Source History Provided By: Patient, Medical Record Limitations to Obtaining History: Clinical Condition - Past Medical History Cardio/Vascular: Yes: AFIB, HTN, Hyperlipdemia Pulmonary: Yes: COPD. No: O2 Dependent - Past Surgical History Past Surgical History: Yes: Cholecystectomy - Alcohol/Substance Use Hx Alcohol Use: No History of Substance Use: reports: None - Smoking History Smoking history: Former smoker Have you smoked in the past 12 months: Yes Aproximately how many cigarettes per day: 5 If you are a former smoker, when did you quit?: 11/03/17 - Social History ADL: Independent Occupation: retired History of Recent Travel: Yes (to [place]) Home Medications - Allergies Allergies/Adverse Reactions: Allergies Allergy/AdvReac Type Severity Reaction Status Date / Time No Known Allergies Allergy Verified 12/08/17 06:32 - Home Medications Home Medications: Ambulatory Orders Apixaban [Eliquis -] 5 mg PO BID #60 tablet 02/23/16 Diltiazem Cd [Cardizem Cd -] 180 mg PO DAILY 11/03/17 Furosemide [Lasix] 20 mg PO DAILY 11/03/17 Metoprolol Tartrate [Lopressor -] 50 mg PO BID 11/03/17 Pravastatin Sodium [Pravachol -] 20 mg PO HS 11/03/17 Folic Acid 1 mg PO DAILY 11/19/17 Omeprazole 20 mg PO DAILY 11/19/17 Family Disease History - Family Disease History Family Disease History: Heart Disease: Mother (CHF) Review of Systems - Review of Systems Constitutional: denies: Chills, Fever Eyes: denies: Recent Change in Vision HENT: denies: Nasal Congestion, Throat Pain Neck: denies: Stiffness, Tenderness Cardiovascular: denies: Chest Pain, Shortness of Breath Respiratory: denies: Cough, Hemoptysis, Wheezing Gastrointestinal: denies: Abdominal Pain, Nausea, Vomiting Genitourinary: denies: Dysuria, Hematuria Neurological: denies: Dizziness, Headache Physical Exam Vital Sings: Vital Signs Temperature 97.5 F L 12/08/17 09:52 Pulse Rate 80 12/08/17 16:00 Respiratory Rate 22 12/08/17 16:00 Blood Pressure 105/84 12/08/17 16:00 O2 Sat by Pulse Oximetry (%) 98 12/08/17 16:00 Constitutional: Yes: No Distress, Calm Eyes: Yes: Conjunctiva Clear, EOM Intact HENT: Yes: Atraumatic, Normocephalic Neck: Yes: Supple, Trachea Midline Cardiovascular: Yes: Regular Rate and Rhythm Respiratory: Yes: Diminished (decreased breath sounds at the bases) ...Clubbing: No Gastrointestinal: Yes: Normal Bowel Sounds, Soft. No: Tenderness Edema: No Neurological: Yes: Alert, Oriented Imaging - Results Chest X-ray: Report Reviewed, Image Reviewed (left basilar pneumothorax, left sided pleural catheter) Problem List - Problems (1) Atrial fibrillation Code(s): I48.91 - UNSPECIFIED ATRIAL FIBRILLATION Qualifiers: Atrial fibrillation type: persistent Qualified Code(s): I48.1 - Persistent atrial fibrillation (2) Diastolic dysfunction Code(s): I51.9 - HEART DISEASE, UNSPECIFIED (3) HLD (hyperlipidemia) Code(s): E78.5 - HYPERLIPIDEMIA, UNSPECIFIED Qualifiers: Hyperlipidemia type: pure hypercholesterolemia Qualified Code(s): E78.00 - Pure hypercholesterolemia, unspecified; E78.0 - Pure hypercholesterolemia (4) Lung mass Code(s): R91.8 - OTHER NONSPECIFIC ABNORMAL FINDING OF LUNG FIELD (5) Pleural effusion Code(s): J90 - PLEURAL EFFUSION, NOT ELSEWHERE CLASSIFIED (6) HTN (hypertension) Code(s): I10 - ESSENTIAL (PRIMARY) HYPERTENSION Qualifiers: Hypertension type: essential hypertension Qualified Code(s): I10 - Essential (primary) hypertension Assessment/Plan Recurrent Left Exudative Pleural Effusion Pleural Nodules/Lung Mass r/o Malignancy s/p L VATS/pleural biopsy/pleur-x placement Atrial Fibrillation HTN Hyperlipidemia - f/u pathology - monitor chest tube output - pain control - incentive spirometry - rate control - resume anticoagulation when ok with surgery - PO as tolerated - OOB to chair - DVT prophylaxis Thank you for this consult Brendan Wheeler MD
[2017-12-08] MEDS: MUPIROCIN 2% TOPICAL OINTMENT FOR DECOLONIZATION NS SCH (21:35)
[2017-12-08] MEDS: METOPROLOL TARTRATE 50 MG TABLET (FP) PO SCH (21:36)
[2017-12-08] MEDS: HEPARIN NA (PORCINE) 5,000 UNITS/ML 1ML VIAL SQ SCH (21:36)
[2017-12-08] MEDS ORDERED: CHLORHEXIDINE GLUCONATE 4% CLEANSER FOR DECOLONIZATION TP SCH (22:00)
[2017-12-08] MEDS ORDERED: METOPROLOL TARTRATE 25 MG TABLET (FP) PO SCH (22:00)
[2017-12-08] MEDS ORDERED: PATIENT'S OWN MEDICATION (NON-FORMULARY) (Pravastatin Sodium 20 MG) PO SCH (22:00)
[2017-12-09 06:50] LABS: BASO % 0.7 % (0-2.0); HEMATOCRIT 45.2 % (32.4-45.2); HEMOGLOBIN 15.5 GM/dL (10.7-15.3); LYMPH % 3.4 % (8-40); MCH 34.4 pg (25.7-33.7); MCHC 34.3 g/dl (32.0-36.0); MEAN CELL VOLUME 100.4 fl (80-96); MONO % 8.9 % (3.8-10.2); RDW 14.6 % (11.6-15.6); WHITE BLOOD COUNT 13.4 K/mm3 (4.0-10.0)
[2017-12-09] MEDS ORDERED: PT OWN MED DRAWER 7, Y5N ONE ×2 (07:15→09:02)
[2017-12-09 07:24] LABS: ANION GAP 8 (8-16); BLOOD UREA NITROGEN 24 mg/dL (7-18); CALCIUM 9.1 mg/dL (8.5-10.1); CHLORIDE 101 mmol/L (98-107); CO2 27 mmol/L (21-32); CREATININE 0.9 mg/dL (0.55-1.02); GLUCOSE,RANDOM 174 mg/dL (74-106); POTASSIUM 4.6 mmol/L (3.5-5.1); SODIUM 136 mmol/L (136-145)
--- NOTE | 2017-12-09 08:02 | PN ---
Progress Note (short form) - Note Progress Note: POD #1 Alert. Sitting in bed. resting comfortably without complaint. Denies n/v/f/c, CP, SOB or MONTILLA. Last Vital Signs Temp Pulse Resp BP Pulse Ox 97.8 F 82 15 137/97 100 18 17:28 12/09/17 06:00 12/09/17 06:00 12/09/17 06:00 12/08/17 20:51 CBC, BMP 12/09/17 06:25 12/09/17 06:25 CXR 18: no ptx. retrocardiac atelectasis PE Gen: nad Chest: Pleurex cath on suction 290ml serosang. No leak noted. Problem List - Problems (1) Pleural effusion Assessment/Plan: POD #1 s/p Bronchoscopy, left vats, pleural bx, intercostal nerve block, pleur- x catheter placement f/u pathology cont pleurex to suction CXR Cont ICU management - downgrade to floor at your discretion Above discussed with Dr. Bui and agrees Code(s): J90 - PLEURAL EFFUSION, NOT ELSEWHERE CLASSIFIED
--- NOTE | 2017-12-09 08:19 | PN ---
Progress Note (short form) - Note Progress Note: Post op day#1.S/P Left VATS with pleurex catheter placement and bronchoscopy under GA uneventful.P103,Bp137/107 and Spo2 98% on O2 2L NC.Patient stable.No any anesthesia related problem.Patient DC from the anesthesia care.
[2017-12-09] MEDS: FOLIC ACID 1 MG TABLET (FP) PO SCH (09:06)
[2017-12-09] MEDS: HEPARIN NA (PORCINE) 5,000 UNITS/ML 1ML VIAL SQ SCH ×2 (09:06→22:15)
[2017-12-09] MEDS: METOPROLOL TARTRATE 50 MG TABLET (FP) PO SCH ×2 (09:06→22:15)
[2017-12-09] MEDS: PANTOPRAZOLE 20 MG TABLET (FP) PO SCH (09:06)
[2017-12-09] MEDS: MUPIROCIN 2% TOPICAL OINTMENT FOR DECOLONIZATION NS SCH ×2 (09:09→16:52)
--- NOTE | 2017-12-09 09:40 | CONSULT ---
Consult - text type - Consultation Consultation Note: Neurology History of Present Illness: Ms Nelson is a very pleasant 72 year old female who comes in after pleural biopsy and pleurex catheter placement. I am seeing post surgery and she is without complaint. She denies fevers, chills, lightheadedness, dizziness, chest pain or pressure, shortness of breath, nausea, vomiting, diarrhea, constipation , difficulty or pain on urination, or swelling. She says she has been doing well as an outpatient and without complaint. I was consulted by hospitalist because an MRI from 11/26/17 which demonstrated 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 Exact date of infarction cannot be determined. She did not recall the MRI. I informed her it was ordered by Dr. Matthew and she does recall tests being ordered by Dr. Matthew. I reviewed and the results which made her nervous. However, she was reassured as it seems these infarcts are silent and without clinical deficits. Given her history, it seems likely they are from Afib as bilteral and mutlitple locations leads to suspicion for embolic phenomenon. My recommendation would be her to restart AC (has been on Eliqus) as soon as possible because of her proven high risk for embolic CVA. Will defer to CT surgery regarding hemostasis. Additionally, aggresive mgmt of underlying risk factors including HTN and HLD are recommended. She remains in ICU after having procedure and under close observation. Discussed with nurse as well. - Past Medical History Cardiovascular: Yes: AFIB, HTN, Hyperlipdemia Pulmonary: Yes: COPD. No: O2 Dependent - Past Surgical History Past Surgical History: Yes: Cholecystectomy - Smoking History Smoking history: Former smoker Have you smoked in the past 12 months: Yes Aproximately how many cigarettes per day: 5 If you are a former smoker, when did you quit?: 11/03/17 - Alcohol/Substance Use Hx Alcohol Use: No History of Substance Use: reports: None - Social History ADL: Independent Occupation: retired History of Recent Travel: Yes (to [place]) Home Medications - Allergies Allergies/Adverse Reactions: Allergies Allergy/AdvReac Type Severity Reaction Status Date / Time No Known Allergies Allergy Verified 12/08/17 06:32 - Home Medications Home Medications: Ambulatory Orders Apixaban [Eliquis -] 5 mg PO BID #60 tablet 02/23/16 Diltiazem Cd [Cardizem Cd -] 180 mg PO DAILY 11/03/17 Furosemide [Lasix] 20 mg PO DAILY 11/03/17 Metoprolol Tartrate [Lopressor -] 50 mg PO BID 11/03/17 Pravastatin Sodium [Pravachol -] 20 mg PO HS 11/03/17 Folic Acid 1 mg PO DAILY 11/19/17 Omeprazole 20 mg PO DAILY 11/19/17 Family Disease History - Family Disease History Family Disease History: Heart Disease: Mother (CHF) Review of Systems Findings/Remarks: Full review of systems obtained, as per HPI and otherwise negative Physical Examination Vital Signs: Last Vital Signs Temp Pulse Resp BP Pulse Ox 97.8 F 82 15 137/97 100 12/08/17 17:28 12/09/17 06:00 12/09/17 06:00 12/09/17 06:00 12/08/17 20:51 Constitutional: Yes: No Distress, Calm, Thin Eyes: Yes: Conjunctiva Clear, EOM Intact, PERRL HENT: Yes: Atraumatic, Normocephalic Cardiovascular: Yes: Regular Rate and Rhythm. No: Gallop, Murmur, Rub Respiratory: Yes: Regular, CTA Bilaterally, Other (pleurex catheter). No: Rales , Rhonchi, Wheezes Gastrointestinal: Yes: Normal Bowel Sounds, Soft. No: Distention, Tenderness Extremities: Yes: WNL Neuro: Awake, alert, oriented, CN intact, strength equal b/l, sensory intact, finger to nose normal, No dysmetria, gait deferred Imaging - Results Chest X-ray: Report Reviewed, Image Reviewed MRI brain: Report reviewed, images reviewed CBCD WBC 13.4 K/mm3 (4.0-10.0) H D 12/09/17 06:25 RBC 4.50 M/mm3 (3.60-5.2) 12/09/17 06:25 Hgb 15.5 GM/dL (10.7-15.3) H 12/09/17 06:25 Hct 45.2 % (32.4-45.2) 12/09/17 06:25 MCV 100.4 fl (80-96) H 12/09/17 06:25 MCHC 34.3 g/dl (32.0-36.0) 12/09/17 06:25 RDW 14.6 % (11.6-15.6) 12/09/17 06:25 CMP Sodium 136 mmol/L (136-145) 12/09/17 06:25 Potassium 4.6 mmol/L (3.5-5.1) D 12/09/17 06:25 Chloride 101 mmol/L (98-107) 12/09/17 06:25 Carbon Dioxide 27 mmol/L (21-32) 12/09/17 06:25 Anion Gap 8 (8-16) 12/09/17 06:25 BUN 24 mg/dL (7-18) H 12/09/17 06:25 Creatinine 0.9 mg/dL (0.55-1.02) 12/09/17 06:25 Calcium 9.1 mg/dL (8.5-10.1) 12/09/17 06:25 Plan: 72 year old female who comes in after pleural biopsy and pleurex catheter placement. I am seeing post surgery and she is without complaint. She denies fevers, chills, lightheadedness, dizziness, chest pain or pressure, shortness of breath, nausea, vomiting, diarrhea, constipation, difficulty or pain on urination, or swelling. She says she has been doing well as an outpatient and without complaint. I was consulted by hospitalist because an MRI from 11/26/17 which demonstrated 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 Given her history, it seems likely they are from Afib as bilteral and mutlitple locations leads to suspicion for embolic phenomenon. My recommendation would be her to restart AC (has been on Eliqus) as soon as possible because of her proven high risk for embolic CVA. Will defer to CT surgery regarding hemostasis. Additionally, aggressive mgmt of underlying risk factors including HTN and HLD are recommended. Maintain normotensive range and continued Statin. She remains in ICU after having procedure and under close observation. Discussed with nurse as well. Critical care time 40 minutes.
[2017-12-09] MEDS ORDERED: FUROSEMIDE 20 MG TABLET (FP) PO SCH (10:00)
--- NOTE | 2017-12-09 10:58 | PN ---
Progress Note, Physician Chief Complaint: Mrs Nelson is without complaint today. No cp, sob, n/v. - Current Medication List Current Medications: Active Medications Acetaminophen (Tylenol -) 650 mg PO Q6H PRN PRN Reason: PAIN LEVEL 1 - 3 Chlorhexidine Gluconate (Hibiclens For Decolonization -) 1 applic TP HS [facility] Last Admin: 12/08/17 21:35 Dose: 1 applic Diltiazem HCl (Cardizem Cd -) 180 mg PO DAILY [facility] Last Admin: 12/09/17 09:06 Dose: 180 mg Fentanyl (Sublimaze Injection -) 25 mcg IVPUSH [id number] PRN PRN Reason: PAIN Last Admin: 12/08/17 10:40 Dose: 25 mcg Folic Acid (Folic Acid -) 1 mg PO DAILY [facility] Last Admin: 12/09/17 09:06 Dose: 1 mg Heparin Sodium (Porcine) (Heparin -) 5,000 unit SQ BID [facility] Last Admin: 12/09/17 09:06 Dose: 5,000 unit Lactated Ringer's (Lactated Ringers Solution) 1,000 mls @ 75 mls/hr IV ASDIR [facility] Potassium Chloride/Dextrose/Sod Cl (D5-1/2ns+20 Meq Kcl -) 20 meq in 1,000 mls @ 75 mls/hr IV ASDIR [facility] Last Admin: 12/08/17 21:34 Dose: 75 mls/hr Metoprolol Tartrate (Lopressor -) 50 mg PO BID [facility] Last Admin: 12/09/17 09:06 Dose: 50 mg Mupirocin (Bactroban Ointment (For Decolonization) -) 1 applic NS BID [facility] Stop: 12/13/17 09:59 Last Admin: 12/09/17 09:09 Dose: 1 applic Non-Formulary Medication (Pravastatin Sodium) 20 mg PO [facility] Ondansetron HCl (Zofran Injection) 4 mg IVPUSH Q6H PRN PRN Reason: NAUSEA AND/OR VOMITING Oxycodone HCl (Roxicodone -) 5 mg PO Q6H PRN PRN Reason: PAIN LEVEL 4 - 6 Pantoprazole Sodium (Protonix -) 20 mg PO DAILY [facility] Last Admin: 12/09/17 09:06 Dose: 20 mg - Objective Vital Signs: Vital Signs Temperature 36.6 C 12/08/17 17:28 Pulse Rate 82 12/09/17 06:00 Respiratory Rate 15 12/09/17 06:00 Blood Pressure 137/97 12/09/17 06:00 O2 Sat by Pulse Oximetry (%) 100 12/08/17 20:51 Constitutional: Yes: No Distress, Calm, Thin Cardiovascular: Yes: Tachycardia, Pulse Irregular. No: Gallop, Murmur, Rub Respiratory: Yes: Regular, CTA Bilaterally, Other (chest tube in place). No: Rales, Rhonchi, Wheezes Gastrointestinal: Yes: Normal Bowel Sounds, Soft. No: Distention, Tenderness Extremities: Yes: WNL Edema: No Labs: CBC, BMP 12/09/17 06:25 12/09/17 06:25 Problem List - Problems (1) Lung mass Code(s): R91.8 - OTHER NONSPECIFIC ABNORMAL FINDING OF LUNG FIELD (2) Pleural effusion Code(s): J90 - PLEURAL EFFUSION, NOT ELSEWHERE CLASSIFIED (3) Atrial fibrillation Code(s): I48.91 - UNSPECIFIED ATRIAL FIBRILLATION Qualifiers: Atrial fibrillation type: persistent Qualified Code(s): I48.1 - Persistent atrial fibrillation (4) HTN (hypertension) Code(s): I10 - ESSENTIAL (PRIMARY) HYPERTENSION Qualifiers: Hypertension type: essential hypertension Qualified Code(s): I10 - Essential (primary) hypertension (5) HLD (hyperlipidemia) Code(s): E78.5 - HYPERLIPIDEMIA, UNSPECIFIED Qualifiers: Hyperlipidemia type: pure hypercholesterolemia Qualified Code(s): E78.00 - Pure hypercholesterolemia, unspecified; E78.0 - Pure hypercholesterolemia Assessment/Plan (1) Lung mass Assessment/Plan: -with pleural masses -s/p biopsy -follow up biopsy, can be done as an outpatient Code(s): R91.8 - OTHER NONSPECIFIC ABNORMAL FINDING OF LUNG FIELD (2) Pleural effusion Assessment/Plan: -chest tube placed -CT surgery monitoring Code(s): J90 - PLEURAL EFFUSION, NOT ELSEWHERE CLASSIFIED (3) Atrial fibrillation Assessment/Plan: -tachycardic today -consulted Dr Munoz and case discussed -restart AC when safe from CT surgery standpoint Code(s): I48.91 - UNSPECIFIED ATRIAL FIBRILLATION Qualifiers: Atrial fibrillation type: persistent Qualified Code(s): I48.1 - Persistent atrial fibrillation (4) HTN (hypertension) Assessment/Plan: -well controlled -continue diltiazem and metoprolol Code(s): I10 - ESSENTIAL (PRIMARY) HYPERTENSION Qualifiers: Hypertension type: essential hypertension Qualified Code(s): I10 - Essential (primary) hypertension (5) HLD (hyperlipidemia) Assessment/Plan: -continue statin Code(s): E78.5 - HYPERLIPIDEMIA, UNSPECIFIED Qualifiers: Hyperlipidemia type: pure hypercholesterolemia Qualified Code(s): E78.00 - Pure hypercholesterolemia, unspecified; E78.0 - Pure hypercholesterolemia (6) Chronic CVA -appreciate neurology assistance -note reviewed
[2017-12-09 11:12] LABS: MEAN PLT VOLUME 8.3 fl (7.5-11.1); PLATELET COUNT 398 K/MM3 (134-434); PLATELET ESTIMATE ADEQUATE
--- NOTE | 2017-12-09 11:51 | CON.CARD ---
Consult Consult Specialty:: Cardiology Referred by:: Lencho Beard MD Reason for Consultation:: Persistent afib - History of Present Illness Chief Complaint: Fatigue and weakness History of Present Illness: Patient is a 72 year old female with h/o HTN/HCVD, diastolic dysfunction, persistent Afib on Eliquis, progressive dyspnea and orthopnea, referable to recurrent large left-sided effusion and pulmonary nodule suspicious of malignancy underwent bronchoscopy, left VATS and placement of left Pleurx catheter. Found to have serous pleural fluid and multiple pleural nodules with frozen sections suspicious for malignancy s/p pleural biopsies, intercostal nerve block and pleur-x catheter placement. Pain adequately controlled. Denies shortness of breath, cough, palpitations or chest pain. No fevers or chills. Post op CXR showing loculated left basilar pneumothorax since resolved, per surgeon report lung did not expand completely at the end of the procedure, remains in afib. - History Source History Provided By: Patient Limitations to Obtaining History: No Limitations - Past Medical History Cardio/Vascular: Yes: AFIB, HTN, Hyperlipdemia Pulmonary: Yes: COPD. No: O2 Dependent - Past Surgical History Past Surgical History: Yes: Cholecystectomy - Alcohol/Substance Use Hx Alcohol Use: No History of Substance Use: reports: None - Smoking History Smoking history: Former smoker Have you smoked in the past 12 months: Yes Aproximately how many cigarettes per day: 5 If you are a former smoker, when did you quit?: 11/03/17 - Social History ADL: Independent Occupation: retired History of Recent Travel: Yes (to [place]) Home Medications - Allergies Allergies/Adverse Reactions: Allergies Allergy/AdvReac Type Severity Reaction Status Date / Time No Known Allergies Allergy Verified 12/08/17 06:32 - Home Medications Home Medications: Ambulatory Orders Apixaban [Eliquis -] 5 mg PO BID #60 tablet 02/23/16 Diltiazem Cd [Cardizem Cd -] 180 mg PO DAILY 11/03/17 Furosemide [Lasix] 20 mg PO DAILY 11/03/17 Metoprolol Tartrate [Lopressor -] 50 mg PO BID 11/03/17 Pravastatin Sodium [Pravachol -] 20 mg PO HS 11/03/17 Folic Acid 1 mg PO DAILY 11/19/17 Omeprazole 20 mg PO DAILY 11/19/17 Family Disease History - Family Disease History Family Disease History: Heart Disease: Mother (CHF) Review of Systems - Review of Systems Respiratory: reports: Orthopnea, SOB, SOB on Exertion Vital Signs: Vital Signs Temperature 97.8 F 12/08/17 17:28 Pulse Rate 82 12/09/17 06:00 Respiratory Rate 15 12/09/17 06:00 Blood Pressure 137/97 12/09/17 06:00 O2 Sat by Pulse Oximetry (%) 100 12/08/17 20:51 Constitutional: Yes: No Distress, Calm, Thin Neck: Yes: Supple Respiratory: Yes: Regular, Diminished, On Nasal O2, Other (Left chest tube in place) Gastrointestinal: Yes: Normal Bowel Sounds, Soft Cardiovascular: Yes: Tachycardia, Pulse Irregular JVD: No Carotid Bruit: No Heart Sounds: Yes: S1, S2 Murmur: Yes: Systolic Murmur, Grade 1 Edema: No - Other Data Labs, Other Data: CBC, BMP 12/09/17 06:25 12/09/17 06:25 Rapid afib @ 104 Imaging - Results Chest X-ray: Report Reviewed (Resolved left PTX) Problem List - Problems (1) History of thoracotomy Code(s): Z98.890 - OTHER SPECIFIED POSTPROCEDURAL STATES (2) Atrial fibrillation with rapid ventricular response Code(s): I48.91 - UNSPECIFIED ATRIAL FIBRILLATION (3) Diastolic dysfunction Code(s): I51.9 - HEART DISEASE, UNSPECIFIED (4) HLD (hyperlipidemia) Code(s): E78.5 - HYPERLIPIDEMIA, UNSPECIFIED Qualifiers: Hyperlipidemia type: pure hypercholesterolemia Qualified Code(s): E78.00 - Pure hypercholesterolemia, unspecified; E78.0 - Pure hypercholesterolemia (5) Lung mass Code(s): R91.8 - OTHER NONSPECIFIC ABNORMAL FINDING OF LUNG FIELD (6) Pleural effusion Code(s): J90 - PLEURAL EFFUSION, NOT ELSEWHERE CLASSIFIED (7) Tobacco abuse Code(s): Z72.0 - TOBACCO USE (8) HTN (hypertension) Code(s): I10 - ESSENTIAL (PRIMARY) HYPERTENSION Qualifiers: Hypertension type: essential hypertension Qualified Code(s): I10 - Essential (primary) hypertension (9) Cerebrovascular disease Code(s): I67.9 - CEREBROVASCULAR DISEASE, UNSPECIFIED Assessment/Plan 02/20/2016 Normal LV size and fxn, borderline TRACIE, severe TR, mild TR RVSP 40-50 mmHg MRI from 11/26/17 which demonstrated 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 1. Recurrent left pleural effusion with pleural Nodules/suprahilar lung mass s/ p L VATS/pleural biopsy/pleur-x placement 2. HTN/HCVD 3. Chronic diastolic dysfunction 4. Persistent Afib off Eliquis post-procedure 5. Hyperlipidemia 6. Cerebrovascular disease PLAN: 1. Resume Eliquis 5 bid tomorrow per thoracic surgery 2. Continue Cardizem CD 180 qd, Lopressor 50 bid and Pravachol 20 qhs 3. Smoking cessation 4. F/u cytopathology, surgical pathology and cultures, chest tube management 5. Incentive spirometry, DVT and GI prophylaxis, analgesia as needed 6. Thank you for consultative opportunity
[2017-12-09] MEDS ORDERED: dilTIAZem HCL 50 MG/10 ML - 10 ML VIAL IVPUSH PRN (14:11)
--- NOTE | 2017-12-09 14:38 | PN ---
Teaching Attending Note Name of Resident: Shivam Mata ATTENDING PHYSICIAN STATEMENT I saw and evaluated the patient. I reviewed the resident's note and discussed the case with the resident. I agree with the resident's findings and plan as documented. SUBJECTIVE: Pt seen and examined in the ICU. Pain controlled. Denies shortness of breath or chest pain. No cough or wheezing. No fevers or chills. CXR showing re-expansion of left lung. OBJECTIVE: Last Vital Signs Temp Pulse Resp BP Pulse Ox 98.7 F 118 H 20 128/103 100 12/09/17 08:00 12/09/17 12:00 12/09/17 12:00 12/09/17 12:00 12/08/17 20:51 Intake & Output 12/06/17 12/07/17 12/08/17 12/09/17 23:59 23:59 23:59 23:59 Intake Total 2000 945 Output Total 300 490 Balance 1700 455 Weight 53.6 kg 54.2 kg Gen: NAD at rest Heart: tachycardic, irregular Lung: decreased breath sounds at the bases Abd: soft, nontender Ext: no edema CBC, BMP 12/09/17 06:25 12/09/17 06:25 Active Medications Acetaminophen (Tylenol -) 650 mg PO Q6H PRN PRN Reason: PAIN LEVEL 1 - 3 Chlorhexidine Gluconate (Hibiclens For Decolonization -) 1 applic TP HS [facility] Last Admin: 12/08/17 21:35 Dose: 1 applic Diltiazem HCl (Cardizem Cd -) 180 mg PO DAILY [facility] Last Admin: 12/09/17 09:06 Dose: 180 mg Diltiazem HCl (Cardizem Injection -) 10 mg IVPUSH Q4H PRN PRN Reason: TACHYCARDIA Fentanyl (Sublimaze Injection -) 25 mcg IVPUSH [id number] PRN PRN Reason: PAIN Last Admin: 12/08/17 10:40 Dose: 25 mcg Folic Acid (Folic Acid -) 1 mg PO DAILY [facility] Last Admin: 12/09/17 09:06 Dose: 1 mg Heparin Sodium (Porcine) (Heparin -) 5,000 unit SQ BID [facility] Last Admin: 12/09/17 09:06 Dose: 5,000 unit Metoprolol Tartrate (Lopressor -) 50 mg PO BID [facility] Last Admin: 12/09/17 09:06 Dose: 50 mg Mupirocin (Bactroban Ointment (For Decolonization) -) 1 applic NS BID [facility] Stop: 12/13/17 09:59 Last Admin: 12/09/17 09:09 Dose: 1 applic Non-Formulary Medication (Pravastatin Sodium) 20 mg PO HS [facility] Ondansetron HCl (Zofran Injection) 4 mg IVPUSH Q6H PRN PRN Reason: NAUSEA AND/OR VOMITING Oxycodone HCl (Roxicodone -) 5 mg PO Q6H PRN PRN Reason: PAIN LEVEL 4 - 6 Pantoprazole Sodium (Protonix -) 20 mg PO DAILY [facility] Last Admin: 12/09/17 09:06 Dose: 20 mg ASSESSMENT AND PLAN: Recurrent Left Exudative Pleural Effusion Pleural Nodules/Lung Mass Suspicious for Malignancy s/p L VATS/pleural biopsy/pleur-x placement Atrial Fibrillation HTN Hyperlipidemia - f/u pathology - monitor chest tube output - pain control - incentive spirometry - rate control - resume anticoagulation when ok with surgery - PO as tolerated - OOB to chair - DVT prophylaxis - can monitor on telemetry Problem List - Problems (1) Atrial fibrillation Code(s): I48.91 - UNSPECIFIED ATRIAL FIBRILLATION Qualifiers: Atrial fibrillation type: persistent Qualified Code(s): I48.1 - Persistent atrial fibrillation (2) Diastolic dysfunction Code(s): I51.9 - HEART DISEASE, UNSPECIFIED (3) HLD (hyperlipidemia) Code(s): E78.5 - HYPERLIPIDEMIA, UNSPECIFIED Qualifiers: Hyperlipidemia type: pure hypercholesterolemia Qualified Code(s): E78.00 - Pure hypercholesterolemia, unspecified; E78.0 - Pure hypercholesterolemia (4) Lung mass Code(s): R91.8 - OTHER NONSPECIFIC ABNORMAL FINDING OF LUNG FIELD (5) Pleural effusion Code(s): J90 - PLEURAL EFFUSION, NOT ELSEWHERE CLASSIFIED (6) HTN (hypertension) Code(s): I10 - ESSENTIAL (PRIMARY) HYPERTENSION Qualifiers: Hypertension type: essential hypertension Qualified Code(s): I10 - Essential (primary) hypertension
--- NOTE | 2017-12-09 14:56 | PATH ---
Cytology Non-Gynecological Report Patient Name: VIRGILIO JEWELL [facility]. Rec. #: [id number] /Age/Gender: 1945 (Age: 72) / F Account: [id number] Location: ICU [employer] P[employer] UP MAN Taken: 12/08/2017 Received: 12/08/2017 Reported: 12/09/2017 Physicians: Tj Bui M.D. Specimen(s) Received PLEURAL FLUID Clinical History Pleural effusion Final Diagnosis PLEURAL FLUID FOR CYTOLOGY: SATISFACTORY FOR EVALUATION. NO MALIGNANT CELLS IDENTIFIED. RARE AGGREGATES OF LYMPHOCYTES AND FEW NEUTROPHILS IN HEMORRHAGIC BACKGROUND. Comment: See concurrent biopsy ([id number]). Electronically Signed Kia Fowler M.D. Gross Description Approximately 50 cc of bloody fluid received fresh. Two cytofunnels and one cellblock prepared.
--- NOTE | 2017-12-09 15:10 | PN ---
Progress Note, Physician History of Present Illness: patient seen and examined at bedside in ICU S/P VATS POD#1 feels well passing gas ate all of her breakfast-endorses good appetite daughter at bedside who is RN CXR shows re-expansion of left lung - Current Medication List Current Medications: Active Medications Acetaminophen (Tylenol -) 650 mg PO Q6H PRN PRN Reason: PAIN LEVEL 1 - 3 Chlorhexidine Gluconate (Hibiclens For Decolonization -) 1 applic TP HS [facility] Last Admin: 12/08/17 21:35 Dose: 1 applic Diltiazem HCl (Cardizem Cd -) 180 mg PO DAILY [facility] Last Admin: 12/09/17 09:06 Dose: 180 mg Diltiazem HCl (Cardizem Injection -) 10 mg IVPUSH Q4H PRN PRN Reason: TACHYCARDIA Fentanyl (Sublimaze Injection -) 25 mcg IVPUSH [id number] PRN PRN Reason: PAIN Last Admin: 12/08/17 10:40 Dose: 25 mcg Folic Acid (Folic Acid -) 1 mg PO DAILY [facility] Last Admin: 12/09/17 09:06 Dose: 1 mg Heparin Sodium (Porcine) (Heparin -) 5,000 unit SQ BID [facility] Last Admin: 12/09/17 09:06 Dose: 5,000 unit Metoprolol Tartrate (Lopressor -) 50 mg PO BID [facility] Last Admin: 12/09/17 09:06 Dose: 50 mg Mupirocin (Bactroban Ointment (For Decolonization) -) 1 applic NS BID [facility] Stop: 12/13/17 09:59 Last Admin: 12/09/17 09:09 Dose: 1 applic Non-Formulary Medication (Pravastatin Sodium) 20 mg PO [facility] Ondansetron HCl (Zofran Injection) 4 mg IVPUSH Q6H PRN PRN Reason: NAUSEA AND/OR VOMITING Oxycodone HCl (Roxicodone -) 5 mg PO Q6H PRN PRN Reason: PAIN LEVEL 4 - 6 Pantoprazole Sodium (Protonix -) 20 mg PO DAILY [facility] Last Admin: 12/09/17 09:06 Dose: 20 mg - Objective Vital Signs: Vital Signs Temperature 98.7 F 12/09/17 08:00 Pulse Rate 118 H 12/09/17 12:00 Respiratory Rate 20 12/09/17 12:00 Blood Pressure 128/103 12/09/17 12:00 O2 Sat by Pulse Oximetry (%) 100 12/08/17 20:51 Constitutional: Yes: No Distress, Calm Eyes: Yes: Conjunctiva Clear HENT: Yes: Atraumatic Neck: Yes: Supple Cardiovascular: Yes: Pulse Irregular Respiratory: Yes: Diminished, Other (left chest tube in place with serosangenous drainage) Gastrointestinal: Yes: Soft Labs: CBC, BMP 12/09/17 06:25 12/09/17 06:25 Assessment/Plan Home Medication List Medication Instructions Recorded Confirmed Type Diltiazem Cd [Cardizem Cd -] 180 mg PO DAILY 11/03/17 12/08/17 History Furosemide [Lasix] 20 mg PO DAILY 11/03/17 12/08/17 History Metoprolol Tartrate [Lopressor -] 50 mg PO BID 11/03/17 12/08/17 History Pravastatin Sodium [Pravachol -] 20 mg PO HS 11/03/17 12/08/17 History Folic Acid 1 mg PO DAILY 11/19/17 12/08/17 History Omeprazole 20 mg PO DAILY 11/19/17 12/08/17 History Active Medications Generic Name Dose Route Start Last Admin Trade Name Freq PRN Reason Stop Dose Admin Acetaminophen 650 mg 12/08/17 09:54 Tylenol - PO Q6H PRN PAIN LEVEL 1 - 3 Chlorhexidine Gluconate 1 applic 12/08/17 22:00 12/08/17 21:35 Hibiclens For Decolonization - TP 1 applic HS [facility] Administration Diltiazem HCl 180 mg 12/09/17 10:00 12/09/17 09:06 Cardizem Cd - PO 180 mg DAILY [facility] Administration Diltiazem HCl 10 mg 12/09/17 14:11 Cardizem Injection - IVPUSH Q4H PRN TACHYCARDIA Fentanyl 25 mcg 12/08/17 07:04 12/08/17 10:40 Sublimaze Injection - IVPUSH 25 mcg [id number] PRN Administration PAIN Folic Acid 1 mg 12/09/17 10:00 12/09/17 09:06 Folic Acid - PO 1 mg DAILY [facility] Administration Heparin Sodium (Porcine) 5,000 unit 12/08/17 22:00 12/09/17 09:06 Heparin - SQ 5,000 unit BID [facility] Administration Metoprolol Tartrate 50 mg 12/08/17 22:00 12/09/17 09:06 Lopressor - PO 50 mg BID [facility] Administration Mupirocin 1 applic 12/08/17 10:00 12/09/17 09:09 Bactroban Ointment (For Decolonization) - NS 12/13/17 09:59 1 applic BID [facility] Administration Non-Formulary Medication 20 mg 12/08/17 22:00 Pravastatin Sodium PO HS [facility] Ondansetron HCl 4 mg 12/08/17 10:10 Zofran Injection IVPUSH Q6H PRN NAUSEA AND/OR VOMITING Oxycodone HCl 5 mg 12/08/17 10:09 Roxicodone - PO Q6H PRN PAIN LEVEL 4 - 6 Pantoprazole Sodium 20 mg 12/09/17 10:00 12/09/17 09:06 Protonix - PO 20 mg DAILY [facility] Administration ASSESSMENT AND PLAN: 72F with recurrent left exudative effusion and multiple lung masses/pulmonary nodules POD#1 s/p left VATS and biopsy with pleur-x catheter placement Recurrent left exudative pleural effusion: s/p VATs with pleurx catheter placement continue pleur-x to suction per surgery pain control suspicious for malignancy per conversation with attending f/u pahtology cytology negative for malignant cells monitor chest tube output incentive spirometry Atrial fibrillation: hold eliquis for now until ok by surgery continue metoprolol continue cardizem cardiology consult appreciated HTN: continue metoprolol continue cardizem hold lasix for now HLD: continue PPI GERD: continue home dose of protonix anemia: continue folic acid FEN: Stop IVF as she is eating well no electrolyte issues continue sodium controlled diet PPx: HSQ PPI Out of bed PT consult Incentive spirometry Plan discussed with daughter who is an RN and is at bedside and patient Transfer to telemetry
--- NOTE | 2017-12-09 15:25 | PN ---
Progress Note (short form) - Note Progress Note: Thoracic Surgery: POD#1, pain well-controlled. Breathing comfortably. AF, mild tachycardia. OK for DC tomorrow with VNS, pleur-x kits (paper work done--if questions please call office at [phone]), can restart anticoagulation for atrial fibrillation tomorrow AM.
[2017-12-10 06:25] LABS: BASO % 0.9 % (0-2.0); EOS % 1.6 % (0-4.5); HEMATOCRIT 45.5 % (32.4-45.2); HEMOGLOBIN 15.1 GM/dL (10.7-15.3); LYMPH % 6.7 % (8-40); MCH 32.8 pg (25.7-33.7); MCHC 33.2 g/dl (32.0-36.0); MEAN CELL VOLUME 98.8 fl (80-96); MEAN PLT VOLUME 8.2 fl (7.5-11.1); MONO % 12.5 % (3.8-10.2); NEUT % 78.3 % (42.8-82.8); PLATELET COUNT 391 K/MM3 (134-434); RDW 14.6 % (11.6-15.6); WHITE BLOOD COUNT 9.7 K/mm3 (4.0-10.0)
[2017-12-10 06:44] LABS: ANION GAP 5 (8-16); BLOOD UREA NITROGEN 21 mg/dL (7-18); CALCIUM 8.4 mg/dL (8.5-10.1); CHLORIDE 103 mmol/L (98-107); CO2 30 mmol/L (21-32); CREATININE 0.7 mg/dL (0.55-1.02); GLUCOSE,RANDOM 79 mg/dL (74-106); MAGNESIUM 2.1 mg/dL (1.8-2.4); POTASSIUM 4.4 mmol/L (3.5-5.1); SODIUM 138 mmol/L (136-145)
--- NOTE | 2017-12-10 09:24 | PATH ---
Cytology Non-Gynecological Report Patient Name: VIRGILIO JEWELL [facility]. Rec. #: [id number] /Age/Gender: 1945 (Age: 72) / F Account: [id number] Location: ICU MANAGEMENT AIDE Taken: 12/08/2017 Received: 12/08/2017 Reported: 12/10/2017 Physicians: Tj Bui M.D. Specimen(s) Received LEFT BRONCHIAL WASHINGS Clinical History Lung nodules, pleural effusion Final Diagnosis BRONCHIAL WASHING, LEFT, FOR CYTOLOGY: SATISFACTORY FOR EVALUATION. NO MALIGNANT CELLS IDENTIFIED. REACTIVE BRONCHIAL CELLS AND ALVEOLAR MACROPHAGES PRESENT. Comment: See concurrent materials ([id number] and [id number]). Electronically Signed Kia Fowler M.D. Gross Description Approximately 10 cc of clear fluid received fresh. Two cytofunnels prepared.
[2017-12-10] MEDS: PANTOPRAZOLE 20 MG TABLET (FP) PO SCH (09:57)
[2017-12-10] MEDS: FOLIC ACID 1 MG TABLET (FP) PO SCH (09:57)
[2017-12-10] MEDS: HEPARIN NA (PORCINE) 5,000 UNITS/ML 1ML VIAL SQ SCH (09:58)
[2017-12-10] MEDS: METOPROLOL TARTRATE 50 MG TABLET (FP) PO SCH (09:58)
--- NOTE | 2017-12-10 10:14 | PN ---
Progress Note (short form) - Note Progress Note: Neurology History of Present Illness: 72 year old female who comes in after pleural biopsy and pleurex catheter placement. I am seeing post surgery and she is without complaint. She denies fevers, chills, lightheadedness, dizziness, chest pain or pressure, shortness of breath, nausea, vomiting, diarrhea, constipation, difficulty or pain on urination, or swelling. She says she has been doing well as an outpatient and without complaint. I was consulted by hospitalist because an MRI from 11/26/17 which demonstrated 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 Exact date of infarction cannot be determined. She did not recall the MRI. I informed her it was ordered by Dr. Matthew and she does recall tests being ordered by Dr. Matthew. I reviewed and the results which made her nervous. However, she was reassured as it seems these infarcts are silent and without clinical deficits. Given her history, it seems likely they are from Afib as bilteral and mutlitple locations leads to suspicion for embolic phenomenon. My recommendation would be her to restart AC (has been on Eliqus) as soon as possible because of her proven high risk for embolic CVA. CT surgery note reviewed and mentioned OK to restart today and possible for discharge home. Spoke to patient and she is aware of importance of AC in secondary prevention as well as risk factor optimization of her HTN and HLD. Active Medications Acetaminophen (Tylenol -) 650 mg PO Q6H PRN PRN Reason: PAIN LEVEL 1 - 3 Last Admin: 12/09/17 18:25 Dose: 650 mg Diltiazem HCl (Cardizem Cd -) 180 mg PO DAILY [facility] Last Admin: 12/10/17 09:57 Dose: 180 mg Diltiazem HCl (Cardizem Injection -) 10 mg IVPUSH Q4H PRN PRN Reason: TACHYCARDIA Fentanyl (Sublimaze Injection -) 25 mcg IVPUSH [id number] PRN PRN Reason: PAIN Last Admin: 12/08/17 10:40 Dose: 25 mcg Folic Acid (Folic Acid -) 1 mg PO DAILY [facility] Last Admin: 12/10/17 09:57 Dose: 1 mg Heparin Sodium (Porcine) (Heparin -) 5,000 unit SQ BID [facility] Last Admin: 12/10/17 09:58 Dose: 5,000 unit Metoprolol Tartrate (Lopressor -) 50 mg PO BID [facility] Last Admin: 12/10/17 09:58 Dose: 50 mg Non-Formulary Medication (Pravastatin Sodium) 20 mg PO HS [facility] Ondansetron HCl (Zofran Injection) 4 mg IVPUSH Q6H PRN PRN Reason: NAUSEA AND/OR VOMITING Oxycodone HCl (Roxicodone -) 5 mg PO Q6H PRN PRN Reason: PAIN LEVEL 4 - 6 Pantoprazole Sodium (Protonix -) 20 mg PO DAILY [facility] Last Admin: 12/10/17 09:57 Dose: 20 mg Physical Examination Vital Signs Temperature 97.8 F 12/10/17 02:35 Pulse Rate 78 12/10/17 09:28 Respiratory Rate 18 12/10/17 09:28 Blood Pressure 134/110 12/10/17 09:28 O2 Sat by Pulse Oximetry (%) 100 12/10/17 09:00 Constitutional: Yes: No Distress, Calm, Thin Eyes: Yes: Conjunctiva Clear, EOM Intact, PERRL HENT: Yes: Atraumatic, Normocephalic Cardiovascular: Yes: Regular Rate and Rhythm. No: Gallop, Murmur, Rub Respiratory: Yes: Regular, CTA Bilaterally, Other (pleurex catheter). No: Rales , Rhonchi, Wheezes Gastrointestinal: Yes: Normal Bowel Sounds, Soft. No: Distention, Tenderness Extremities: Yes: WNL Neuro: Awake, alert, oriented, CN intact, strength equal b/l, sensory intact, finger to nose normal, No dysmetria, gait deferred Imaging - Results Chest X-ray: Report Reviewed, Image Reviewed MRI brain: Report reviewed, images reviewed CBCD WBC 9.7 K/mm3 (4.0-10.0) 12/10/17 05:15 RBC 4.60 M/mm3 (3.60-5.2) 12/10/17 05:15 Hgb 15.1 GM/dL (10.7-15.3) 12/10/17 05:15 Hct 45.5 % (32.4-45.2) H 12/10/17 05:15 MCV 98.8 fl (80-96) H 12/10/17 05:15 MCHC 33.2 g/dl (32.0-36.0) 12/10/17 05:15 RDW 14.6 % (11.6-15.6) 12/10/17 05:15 Plt Count 391 K/MM3 (134-434) 12/10/17 05:15 MPV 8.2 fl (7.5-11.1) 12/10/17 05:15 CMP Sodium 138 mmol/L (136-145) 12/10/17 05:15 Potassium 4.4 mmol/L (3.5-5.1) 12/10/17 05:15 Chloride 103 mmol/L (98-107) 12/10/17 05:15 Carbon Dioxide 30 mmol/L (21-32) 12/10/17 05:15 Anion Gap 5 (8-16) L 12/10/17 05:15 BUN 21 mg/dL (7-18) H 12/10/17 05:15 Creatinine 0.7 mg/dL (0.55-1.02) D 12/10/17 05:15 Calcium 8.4 mg/dL (8.5-10.1) L 12/10/17 05:15 Plan: 72 year old female who comes in after pleural biopsy and pleurex catheter placement. I am seeing post surgery and she is without complaint. She denies fevers, chills, lightheadedness, dizziness, chest pain or pressure, shortness of breath, nausea, vomiting, diarrhea, constipation, difficulty or pain on urination, or swelling. She says she has been doing well as an outpatient and without complaint. I was consulted by hospitalist because an MRI from 11/26/17 which demonstrated 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 Given her history, it seems likely they are from Afib as bilteral and mutlitple locations leads to suspicion for embolic phenomenon. No new neurologic events Restart AC today per CT surgery, if still the case, would restart to CVA prevention Continued mgmt of underlying risk factors including HTN and HLD are recommended. Maintain normotensive range and continued Statin. Possible for discharge today Discussed outpatient follow up, sees Dr. Aleman as PCP in same office Neurologically stable at this time
--- NOTE | 2017-12-10 12:05 | DS ---
Physical Examination Vital Signs: Vital Signs Temperature 36.6 C 12/10/17 02:35 Pulse Rate 78 12/10/17 11:00 Respiratory Rate 18 12/10/17 11:00 Blood Pressure 134/110 12/10/17 11:00 O2 Sat by Pulse Oximetry (%) 100 12/10/17 09:00 Constitutional: Yes: No Distress, Calm, Thin Cardiovascular: Yes: Pulse Irregular. No: Tachycardia, Gallop, Murmur Respiratory: Yes: Regular, CTA Bilaterally, Other (pleurx in place). No: Rales , Rhonchi, Wheezes Gastrointestinal: Yes: Normal Bowel Sounds, Soft. No: Distention, Tenderness Extremities: Yes: WNL Edema: No Labs: CBC, BMP 12/10/17 05:15 12/10/17 05:15 Discharge Summary Reason For Visit: LUNG MASS Current Active Problems Cerebrovascular disease (Acute) History of thoracotomy (Acute) Hospital Course: (1) Lung mass Code(s): R91.8 - OTHER NONSPECIFIC ABNORMAL FINDING OF LUNG FIELD (2) Pleural effusion Code(s): J90 - PLEURAL EFFUSION, NOT ELSEWHERE CLASSIFIED (3) Atrial fibrillation Code(s): I48.91 - UNSPECIFIED ATRIAL FIBRILLATION Qualifiers: Atrial fibrillation type: persistent Qualified Code(s): I48.1 - Persistent atrial fibrillation (4) HTN (hypertension) Code(s): I10 - ESSENTIAL (PRIMARY) HYPERTENSION Qualifiers: Hypertension type: essential hypertension Qualified Code(s): I10 - Essential (primary) hypertension (5) HLD (hyperlipidemia) Code(s): E78.5 - HYPERLIPIDEMIA, UNSPECIFIED Qualifiers: Hyperlipidemia type: pure hypercholesterolemia Qualified Code(s): E78.00 - Pure hypercholesterolemia, unspecified; E78.0 - Pure hypercholesterolemia Mrs Nelson is a very pleasant 72 year old female who came in for scheduled pleural biopsy and placement of pleurx catheter. She tolerated the procedure well and pleurx catheter placed successfully. She was monitored and did well. She had afib with rvr and was seen by cardiology. This improved with her home regimen. She is currently stable and safe for discharge home. Awaiting home VNS to be set up and can be discharged with pleurx catheter. Condition: Good - Instructions Diet, Activity, Other Instructions: resume previous diet and activity. VNS to teach about Pleurx management Referrals: Kia Aleman MD [Non Staff, Medical] - Tj Bui MD [Staff Physician] - Tiff Law MD [Staff Physician] - Disposition: VNS/HOME HEALTH CARE - Home Medications Comprehensive Discharge Medication List: Ambulatory Orders Apixaban [Eliquis -] 5 mg PO BID #60 tablet 02/23/16 Diltiazem Cd [Cardizem Cd -] 180 mg PO DAILY 11/03/17 Furosemide [Lasix] 20 mg PO DAILY 11/03/17 Metoprolol Tartrate [Lopressor -] 50 mg PO BID 11/03/17 Pravastatin Sodium [Pravachol -] 20 mg PO HS 11/03/17 Folic Acid 1 mg PO DAILY 11/19/17 Omeprazole 20 mg PO DAILY 11/19/17
--- NOTE | 2017-12-10 14:03 | PATH ---
Surgical Pathology Report Patient Name: VIRGILIO JEWELL [facility]. Rec. 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 Specimen(s) Received A: LEFT PLEURAL BIOPSY B: PLEURA BIOPSY Clinical History Pleural effusion (recurrent). Lung mass Intraoperative Consult Diagnosis Left pleural biopsy, frozen section: Atypical cells present suspicious for malignancy. Request additional specimen for permanent section. Vincent Lopez M.D., December 08, 2016 Final Diagnosis A. PLEURA, LEFT, BIOPSY (FS): INVASIVE ADENOCARCINOMA, MODERATELY DIFFERENTIATED. SEE COMMENT. B. PLEURA, BIOPSY: INVASIVE ADENOCARCINOMA, MODERATELY DIFFERENTIATED. SEE COMMENT. Comment: Immunohistochemical stains performed and interpreted at [facility] show the tumor is positive for CK7 and TTF-1. Focal positivity is noted with P63, while MICHELLE shows rare weak staining. [facility] [place] [id number][facility] and interpreted at [facility] show the tumor shows rare staining with p40, while negative for Napsin-A and mesothelial markers (D2-40 and calretinin). Overall, histomorphology and TTF-1 positivity are consistent with Lung origin. Suggest clinical/radiologic correlation. Findings discussed with Drs. Bui and Ani. Electronically Signed Kia Fowler M.D. Addendum Reported: 12/14/2017 Addendum Diagnosis FISH REPORT performed and interpreted at [facility] [place] ([id number]) shows the following: INTERPRETATION: No evidence of rearrangement of ALK(2p23) No evidence of rearrangement of ROS(6q22) See [facility] report ([id number]) for additional details. Kia Fowler M.D. Addendum Reported: 12/17/2017 Addendum Diagnosis EGFR MUTATION ANALYSIS performed and reported by [facility] [place] ([id number]) shows the following: RESULTS: No mutation detected. INTERPRETATION: No mutations were identified in the sample provided for analysis. Fewer than 5% of non-small cell lung carcinoma patients without identifiable mutations are reported to be responsive to EGFR tyrosine kinase inhibitor therapies. See [facility] report ([id number]) for additional details. Kia Fowler M.D. Addendum Reported: 12/17/2017 Addendum Diagnosis PD-L1 performed and reported by [facility] [place] ([id number]) shows the following: RESULTS: No PD-L1 expression Tumor proportion score (TPS) results: 0% See [facility] report ([id number]) for additional details. Kia Fowler M.D. Gross Description A. Received fresh labeled "left pleural biopsy" is a 1.0 cm in greatest dimension piece of mccartney tissue. The specimen is bisected and frozen in its entirety, and the frozen remainder is submitted in cassette FSA. B. Received in formalin labeled "left pleural biopsy," are 2 saravia soft tissue fragments measuring 0.5 x 0.4 x 0.2 cm and 1.6 x 1.1 x 0.2 cm. The specimens are sectioned and entirely submitted in one cassette. [facility]/12/08/2017 [facility]/12/08/2017
[2017-12-10 14:10] VITALS: TEMP 98.2
--- NOTE | 2017-12-10 14:17 | PN ---
Progress Note, Physician History of Present Illness: Rate-controlled afib, denies chest pain or dyspnea. - Current Medication List Current Medications: Active Medications Acetaminophen (Tylenol -) 650 mg PO Q6H PRN PRN Reason: PAIN LEVEL 1 - 3 Last Admin: 12/09/17 18:25 Dose: 650 mg Diltiazem HCl (Cardizem Cd -) 180 mg PO DAILY [facility] Last Admin: 12/10/17 09:57 Dose: 180 mg Diltiazem HCl (Cardizem Injection -) 10 mg IVPUSH Q4H PRN PRN Reason: TACHYCARDIA Fentanyl (Sublimaze Injection -) 25 mcg IVPUSH [id number] PRN PRN Reason: PAIN Last Admin: 12/08/17 10:40 Dose: 25 mcg Folic Acid (Folic Acid -) 1 mg PO DAILY [facility] Last Admin: 12/10/17 09:57 Dose: 1 mg Heparin Sodium (Porcine) (Heparin -) 5,000 unit SQ BID [facility] Last Admin: 12/10/17 09:58 Dose: 5,000 unit Metoprolol Tartrate (Lopressor -) 50 mg PO BID [facility] Last Admin: 12/10/17 09:58 Dose: 50 mg Non-Formulary Medication (Pravastatin Sodium) 20 mg PO [facility] Ondansetron HCl (Zofran Injection) 4 mg IVPUSH Q6H PRN PRN Reason: NAUSEA AND/OR VOMITING Oxycodone HCl (Roxicodone -) 5 mg PO Q6H PRN PRN Reason: PAIN LEVEL 4 - 6 Pantoprazole Sodium (Protonix -) 20 mg PO DAILY [facility] Last Admin: 12/10/17 09:57 Dose: 20 mg - Objective Vital Signs: Vital Signs Temperature 98.2 F 12/10/17 14:00 Pulse Rate 88 12/10/17 14:00 Respiratory Rate 18 12/10/17 14:00 Blood Pressure 102/72 12/10/17 14:00 O2 Sat by Pulse Oximetry (%) 96 12/10/17 09:40 Constitutional: Yes: No Distress, Calm, Thin Neck: Yes: Supple Cardiovascular: Yes: Pulse Irregular Respiratory: Yes: Regular, Diminished, On Nasal O2, Other (Pleurx catheter in place) Gastrointestinal: Yes: Normal Bowel Sounds, Soft Edema: No Labs: CBC, BMP 12/10/17 05:15 12/10/17 05:15 - ....Imaging EKG: Report Reviewed (Tele: Rate-controlled afib) Problem List - Problems (1) History of thoracotomy Code(s): Z98.890 - OTHER SPECIFIED POSTPROCEDURAL STATES (2) Atrial fibrillation with rapid ventricular response Code(s): I48.91 - UNSPECIFIED ATRIAL FIBRILLATION (3) Diastolic dysfunction Code(s): I51.9 - HEART DISEASE, UNSPECIFIED (4) HLD (hyperlipidemia) Code(s): E78.5 - HYPERLIPIDEMIA, UNSPECIFIED Qualifiers: Hyperlipidemia type: pure hypercholesterolemia Qualified Code(s): E78.00 - Pure hypercholesterolemia, unspecified; E78.0 - Pure hypercholesterolemia (5) Lung mass Code(s): R91.8 - OTHER NONSPECIFIC ABNORMAL FINDING OF LUNG FIELD (6) Pleural effusion Code(s): J90 - PLEURAL EFFUSION, NOT ELSEWHERE CLASSIFIED (7) Tobacco abuse Code(s): Z72.0 - TOBACCO USE (8) HTN (hypertension) Code(s): I10 - ESSENTIAL (PRIMARY) HYPERTENSION Qualifiers: Hypertension type: essential hypertension Qualified Code(s): I10 - Essential (primary) hypertension (9) Cerebrovascular disease Code(s): I67.9 - CEREBROVASCULAR DISEASE, UNSPECIFIED Assessment/Plan 02/20/2016 Normal LV size and fxn, borderline TRACIE, severe TR, mild TR RVSP 40-50 mmHg MRI from 11/26/17 which demonstrated 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 1. Recurrent left pleural effusion with pleural Nodules/suprahilar lung mass s/ p L VATS/pleural biopsy/pleur-x placement 2. HTN/HCVD 3. Chronic diastolic dysfunction 4. Persistent Afib off Eliquis post-procedure 5. Hyperlipidemia 6. Cerebrovascular disease PLAN: 1. Resume Eliquis 5 bid today per thoracic surgery 2. Continue Cardizem CD 180 qd, Lopressor 50 bid and Pravachol 20 qhs 3. Smoking cessation 4. F/u cytopathology, surgical pathology and cultures, Pleurx drain management 5. Incentive spirometry, DVT and GI prophylaxis, analgesia as needed 6. F/u in with me in office [phone]
--- NOTE | 2017-12-10 15:25 | PN ---
Progress Note (short form) - Note Progress Note: Overall appears better. No CP or SOB. No acute events overnight. Intake & Output 12/07/17 12/08/17 12/09/17 12/10/17 23:59 23:59 23:59 23:59 Intake Total 1999 1580 0 Output Total 300 1115 700 Balance 1700 465 -700 Weight 118 lb 2.684 oz 119 lb 7.849 oz Last Vital Signs Temp Pulse Resp BP Pulse Ox 98.2 F 88 18 102/72 96 12/10/17 14:00 12/10/17 14:00 12/10/17 14:00 12/10/17 14:00 12/10/17 09:40 Active Medications Acetaminophen (Tylenol -) 650 mg PO Q6H PRN PRN Reason: PAIN LEVEL 1 - 3 Last Admin: 12/09/17 18:25 Dose: 650 mg Apixaban (Eliquis -) 5 mg PO BID [facility] Diltiazem HCl (Cardizem Cd -) 180 mg PO DAILY [facility] Last Admin: 12/10/17 09:57 Dose: 180 mg Diltiazem HCl (Cardizem Injection -) 10 mg IVPUSH Q4H PRN PRN Reason: TACHYCARDIA Fentanyl (Sublimaze Injection -) 25 mcg IVPUSH [id number] PRN PRN Reason: PAIN Last Admin: 12/08/17 10:40 Dose: 25 mcg Folic Acid (Folic Acid -) 1 mg PO DAILY [facility] Last Admin: 12/10/17 09:57 Dose: 1 mg Metoprolol Tartrate (Lopressor -) 50 mg PO BID [facility] Last Admin: 12/10/17 09:58 Dose: 50 mg Non-Formulary Medication (Pravastatin Sodium) 20 mg PO [facility] Ondansetron HCl (Zofran Injection) 4 mg IVPUSH Q6H PRN PRN Reason: NAUSEA AND/OR VOMITING Oxycodone HCl (Roxicodone -) 5 mg PO Q6H PRN PRN Reason: PAIN LEVEL 4 - 6 Pantoprazole Sodium (Protonix -) 20 mg PO DAILY [facility] Last Admin: 12/10/17 09:57 Dose: 20 mg Constitutional: Yes: No Distress, Calm, Thin Neck: Yes: Supple Cardiovascular: Yes: Pulse Irregular Respiratory: Yes: PleurX catheter in place Gastrointestinal: Yes: Normal Bowel Sounds, Soft Edema: No Labs: Laboratory Results - last 24 hr 12/10/17 12/10/17 05:15 05:15 WBC 9.7 RBC 4.60 Hgb 15.1 Hct 45.5 H MCV 98.8 H MCH 32.8 MCHC 33.2 RDW 14.6 Plt Count 391 MPV 8.2 Neutrophils % 78.3 Lymphocytes % 6.7 L D Monocytes % 12.5 H Eosinophils % 1.6 D Basophils % 0.9 Sodium 138 Potassium 4.4 Chloride 103 Carbon Dioxide 30 Anion Gap 5 L BUN 21 H Creatinine 0.7 D Random Glucose 79 D Calcium 8.4 L Phosphorus 3.0 D Magnesium 2.1 Problem List - Problems (1) History of thoracotomy Code(s): Z98.890 - OTHER SPECIFIED POSTPROCEDURAL STATES (2) Atrial fibrillation with rapid ventricular response Code(s): I48.91 - UNSPECIFIED ATRIAL FIBRILLATION (3) Diastolic dysfunction Code(s): I51.9 - HEART DISEASE, UNSPECIFIED (4) HLD (hyperlipidemia) Code(s): E78.5 - HYPERLIPIDEMIA, UNSPECIFIED Qualifiers: Hyperlipidemia type: pure hypercholesterolemia Qualified Code(s): E78.00 - Pure hypercholesterolemia, unspecified; E78.0 - Pure hypercholesterolemia (5) Lung mass Code(s): R91.8 - OTHER NONSPECIFIC ABNORMAL FINDING OF LUNG FIELD (6) Pleural effusion Code(s): J90 - PLEURAL EFFUSION, NOT ELSEWHERE CLASSIFIED (7) Tobacco abuse Code(s): Z72.0 - TOBACCO USE (8) HTN (hypertension) Code(s): I10 - ESSENTIAL (PRIMARY) HYPERTENSION Qualifiers: Hypertension type: essential hypertension Qualified Code(s): I10 - Essential (primary) hypertension (9) Cerebrovascular disease Code(s): I67.9 - CEREBROVASCULAR DISEASE, UNSPECIFIED Assessment/Plan Recurrent left pleural effusion likely due to pleural Nodules/suprahilar lung mass S/P Left VATS/pleural biopsy/PleureX placement Drainage PRN Incentive Spirometry AC per surgery Check final pathology VTE prophylaxis D/C planning Dr Howell
--- NOTE | 2017-12-10 18:15 | PN ---
Progress Note (short form) - Note Progress Note: Thoracic Surgery Doing well. Pleur-x capped. OK for dc.
[2017-12-10 18:52] VITALS: BP 112/82
[2017-12-10 19:12] VITALS: PULSE 88
[2017-12-11] MEDS ORDERED: APIXABAN 5 MG TABLET PO SCH (14:21)
== END 2017-12-10 19:35 | disposition home health service (06) | DRG 164 ==
LOC: JSAMEDAYSX 05:23 → EDSTATUS 07:30 → JICU 17:55 → J2W 12-09 16:05
PROVIDERS: ADMIT Internal Medicine; ATTEND Internal Medicine
PROC: 0WHB33Z Insertion of Infusion Device into Left Pleural Cavity, Percutaneous Approach (ICD-10-PCS; 2017-12-08)
PROC: 0BD Respiratory System, Extraction (ICD-10-PCS; principal; 2017-12-08 07:30)
PROC: 0BDP4ZX Extraction of Left Pleura, Percutaneous Endoscopic Approach, Diagnostic (ICD-10-PCS; 2017-12-08 07:30)
DX: C34.92 Malignant neoplasm of unspecified part of left bronchus or lung (principal); J90 Pleural effusion, not elsewhere classified; J98.11 Atelectasis; I48.1 Persistent atrial fibrillation; R91.8 Other nonspecific abnormal finding of lung field; Z86.73 Personal history of transient ischemic attack (TIA), and cerebral infarction without residual deficits; E78.5 Hyperlipidemia, unspecified; I48.91 Unspecified atrial fibrillation; J44.9 Chronic obstructive pulmonary disease, unspecified; Z87.891 Personal history of nicotine dependence; I11.9 Hypertensive heart disease without heart failure; Z79.01 Long term (current) use of anticoagulants
CPT/HCPCS: 36415; 71045-TC; 80048; 83735; 84100; 85025; 87070; 87102; 87116; 87205; 87206; 87210; 88108; 88305-TC; 88331-TC; 88341-TC; 94760; 94761; J1644

== ENCOUNTER 2017-12-21 07:24 | Day surgery (SDC) | payer OTHER ==
[2017-12-18 17:07] VITALS: BMI 20.9
[~2017-12-21 07:24] MED LIST: LIDOCAINE HCL 1%, 10 MG/ML (20ML VIAL) ID ONE
[2017-12-21] MEDS ORDERED: LIDOCAINE HCL 1%, 10 MG/ML (20ML VIAL) ONE (08:29)
[2017-12-21 08:38] VITALS: TEMP 97.7
[2017-12-21] MEDS ORDERED: ceFAZolin SODIUM 1 GM VIAL ONE (09:14)
[2017-12-21] MEDS ORDERED: MIDAZOLAM HCL 2 MG/2 ML SINGLE DOSE VIAL ONE (09:14)
[2017-12-21] MEDS ORDERED: LIDOCAINE HCL 1%, 10 MG/ML (20ML VIAL) ID ONE (09:24)
[2017-12-21] MEDS ORDERED: HEPARIN NA (PORCINE) 1,000 UNITS/ML 10ML M-D VIAL SQ ONE (09:38)
--- NOTE | 2017-12-21 09:56 | OP ---
Operative Note - Note: Operative Date: 12/21/17 Pre-Operative Diagnosis: lung CA Operation: Insertion of port Post-Operative Diagnosis: Same as Pre-op Surgeon: Kong Alexandra Anesthesia: Fractional Estimated Blood Loss (mls): 30 Operative Report Dictated: Yes
--- NOTE | 2017-12-21 09:58 | HP ---
Admitting History and Physical - Admission Chief Complaint: Pt with lung CA. needs port placement for infusion therapy Limitations to Obtaining History: No Limitations - Past Medical History Cardiovascular: Yes: AFIB, HTN, Hyperlipdemia Pulmonary: Yes: COPD. No: O2 Dependent - Past Surgical History Past Surgical History: Yes: Cholecystectomy - Smoking History Smoking history: Former smoker Have you smoked in the past 12 months: Yes Aproximately how many cigarettes per day: 20 If you are a former smoker, when did you quit?: 11/03/17 - Alcohol/Substance Use Hx Alcohol Use: No (rare) History of Substance Use: reports: None - Social History ADL: Independent Occupation: retired History of Recent Travel: Yes (to [place]) Home Medications - Allergies Allergies/Adverse Reactions: Allergies Allergy/AdvReac Type Severity Reaction Status Date / Time No Known Allergies Allergy Verified 12/08/17 06:32 - Home Medications Home Medications: Ambulatory Orders Apixaban [Eliquis -] 5 mg PO BID #60 tablet 02/23/16 Diltiazem Cd [Cardizem Cd -] 180 mg PO DAILY 11/03/17 Furosemide [Lasix] 20 mg PO DAILY 11/03/17 Metoprolol Tartrate [Lopressor -] 50 mg PO BID 11/03/17 Pravastatin Sodium [Pravachol -] 20 mg PO HS 11/03/17 Folic Acid 1 mg PO DAILY 11/19/17 Omeprazole 20 mg PO DAILY 11/19/17 Cyanocobalamin (Vitamin B-12) [Vitamin B-12] 1,000 mcg PO DAILY 12/21/17 Family Disease History - Family Disease History Family Disease History: Heart Disease: Mother (CHF) Review of Systems - Review of Systems Constitutional: reports: No Symptoms Eyes: reports: No Symptoms HENT: reports: No Symptoms Neck: reports: No Symptoms Cardiovascular: reports: No Symptoms Respiratory: reports: No Symptoms Gastrointestinal: reports: No Symptoms Genitourinary: reports: No Symptoms Breasts: reports: No Symptoms Reported Musculoskeletal: reports: No Symptoms Integumentary: reports: No Symptoms Neurological: reports: No Symptoms Endocrine: reports: No Symptoms Hematology/Lymphatic: reports: No Symptoms Psychiatric: reports: No Symptoms Physical Examination Vital Signs: Vital Signs Temperature 97.7 F 12/21/17 08:09 Pulse Rate 97 H 12/21/17 08:09 Respiratory Rate 18 12/21/17 08:09 Blood Pressure 108/75 12/21/17 08:09 O2 Sat by Pulse Oximetry (%) 94 L 12/21/17 08:08 Constitutional: Yes: Well Nourished, No Distress, Calm Eyes: Yes: WNL, Conjunctiva Clear, EOM Intact HENT: Yes: WNL, Atraumatic, Normocephalic Neck: Yes: WNL, Supple, Trachea Midline Cardiovascular: Yes: WNL, Regular Rate and Rhythm Respiratory: Yes: WNL, Regular, CTA Bilaterally Gastrointestinal: Yes: WNL, Normal Bowel Sounds Musculoskeletal: Yes: WNL Extremities: Yes: WNL Edema: No Integumentary: Yes: WNL Neurological: Yes: WNL, Alert, Oriented ...Motor Strength: WNL Psychiatric: Yes: WNL Problem List - Problems (1) Lung cancer Code(s): C34.90 - MALIGNANT NEOPLASM OF UNSP PART OF UNSP BRONCHUS OR LUNG Assessment/Plan Lung CA 1. For port insertion today
[2017-12-21 13:09] VITALS: BP 98/64; PULSE 84
--- NOTE | 2017-12-22 11:45 | OP ---
DATE OF OPERATION: 12/21/2017 PREOPERATIVE DIAGNOSIS: Lung cancer. POSTOPERATIVE DIAGNOSIS: Lung cancer. PROCEDURE: Insertion of port-a-cath. SURGEON: Kong Queen MD ANESTHESIA: Fractional. BLOOD LOSS: 20 mL. INDICATIONS: The patient is a 72-year-old female who has lung cancer and needs chemotherapy infusion to be initiated. She came to the office for evaluation of port-a-cath placement, and the patient now comes in to ambulatory surgery for the placement. Patient was consented for the procedure understanding all risks, benefits, and alternatives, and was then taken to the operating room. DESCRIPTION OF PROCEDURE: Once in the operating room, she was placed on the operating table in the supine manner, and the area of the right neck and chest was prepped and draped in a sterile surgical manner. Under ultrasound guidance, we visualized the right internal jugular vein, and 10 mL of lidocaine 1% was injected over the vein. We then took our micropuncture needle, punctured the right internal jugular vein. A micropuncture wire was inserted, micropuncture sheath was inserted, and 0.035 floppy guidewire was inserted. We then went ahead and went below the clavicle medially and injected 15 mL of Lidocaine 1%. We then went ahead and made a 5-cm incision using a 15 blade. Bovie electrocautery used to control all hemostasis, and we were able to use the vein retractor and create a pocket for our port-a-cath. Once the pocket was created, we went ahead and tunneled the [id number] up to our puncture site, and the port fit nice and well in the pocket. We then cut the catheter to size. We then placed our breakaway sheath over the guidewire into the vein under fluoroscopy, and the cannula and guidewire were removed. We then placed a catheter inside the sheath. The sheath was broken away as the catheter was placed inside the vein. Neck of the catheter was nice and smooth. Tip of the catheter was located outside the right atrium. We then dinesh back on the port-a-cath with our Colbert needle, and there was good flow. Then, 2000 units of IV heparin were injected into the port. We then went ahead and took 3-0 silk, and the catheter was anchored into the subcutaneous tissue. We then took 3-0 Vicryl, and the subcutaneous tissue was closed in an interrupted manner, and the skin was closed with 4-0 Biosyn in a subcuticular running fashion. The puncture site was closed with 2 simple 4-0 Biosyn stitches. We then went ahead and wet and dried the area. Steri-Strips were placed, 4x4 and Tegaderms were placed. The patient tolerated the procedure with no complications. Patient transferred to PACU in stable condition where a chest x-ray will be obtained. KONG QUEEN DO [id number]
== END 2017-12-21 12:30 | disposition home or self-care (01) ==
LOC: JASU-SURG 07:24
PROVIDERS: ATTEND Surgery Vascular Surgery
PROC: B518ZZA Fluoroscopy of Superior Vena Cava, Guidance (ICD-10-PCS; 2017-12-21)
PROC: 02HV33Z Insertion of Infusion Device into Superior Vena Cava, Percutaneous Approach (ICD-10-PCS; principal; 2017-12-21 09:00)
DX: C34.90 Malignant neoplasm of unspecified part of unspecified bronchus or lung (principal)
CPT/HCPCS: 36561; 76937; 77001; C1751; 71045-TC; 76000-TC; J1644

== ENCOUNTER 2017-12-22 07:49 | Day surgery (SDC) | payer OTHER ==
[2017-12-22] MEDS ORDERED: PALONOSETRON HCL 0.25 MG/5 ML VIAL IVPB ONE (08:00)
[2017-12-22] MEDS ORDERED: DEXAMETHASONE INJECTION 20 MG in SODIUM CHLORIDE 100 ML IVPB ONE (08:00)
[2017-12-22] MEDS ORDERED: PEMETREXED DISODIUM IVPB ONE ×2 (08:30)
[2017-12-22] MEDS ORDERED: SODIUM CHLORIDE IVPB ONE ×3 (08:30→08:40)
[2017-12-22] MEDS ORDERED: CARBOPLATIN IVPB ONE (08:40)
[2017-12-22 09:22] LABS: RDW 14.2 % (11.6-15.6)
[2017-12-22 09:29] LABS: BASO % 1.3 % (0-2.0); EOS % 4.9 % (0-4.5); LYMPH % 4.6 % (8-40); MONO % 12.4 % (3.8-10.2); NEUT % 76.8 % (42.8-82.8)
[2017-12-22 09:33] LABS: HEMATOCRIT 47.4 % (32.4-45.2); HEMOGLOBIN 16.3 GM/dL (10.7-15.3); MCH 34.3 pg (25.7-33.7); MCHC 34.4 g/dl (32.0-36.0); MEAN CELL VOLUME 99.7 fl (80-96); MEAN PLT VOLUME 7.2 fl (7.5-11.1); RBC 4.76 M/mm3 (3.60-5.2); WHITE BLOOD COUNT 7.6 K/mm3 (4.0-10.0)
[2017-12-22] MEDS ORDERED: CYANOCOBALAMIN (VITAMIN B-12) 1000 MCG/1 ML VIAL IM ONE (09:45)
[2017-12-22] MEDS ORDERED: SODIUM CHLORIDE 500 ML IV ONE (09:45)
[2017-12-22 09:51] LABS: ALBUMIN 2.9 g/dl (3.4-5.0); ANION GAP 10 (8-16); BILIRUBIN,TOTAL 0.8 mg/dL (0.2-1.0); BLOOD UREA NITROGEN 16 mg/dL (7-18); CALCIUM 9.3 mg/dL (8.5-10.1); CHLORIDE 100 mmol/L (98-107); CO2 30 mmol/L (21-32); GLUCOSE,RANDOM 82 mg/dL (74-106); POTASSIUM 3.5 mmol/L (3.5-5.1); SGOT/AST 20 U/L (15-37); SODIUM 140 mmol/L (136-145); TOT PROT 6.9 g/dl (6.4-8.2)
[2017-12-22 09:54] LABS: ALK PHOS 215 U/L (45-117); BILIRUBIN,DIRECT 0.4 mg/dL (0.0-0.2); CREATININE 0.7 mg/dL (0.55-1.02); SGPT/ALT 26 U/L (12-78)
[2017-12-22] MEDS ORDERED: APIXABAN 5 MG TABLET PO ONE (12:00)
[2017-12-22 13:50] LABS: PLATELET COUNT 387 K/MM3 (134-434)
[2017-12-22] MEDS ORDERED: POTASSIUM CHLORIDE TABS 20 MEQ TABLET.ER (FP) PO ONE ×2 (14:15→15:45)
[2017-12-22 15:51] VITALS: TEMP 97.9
[2017-12-22] MEDS ORDERED: PORTA CATH FLUSH 10 ML IVPUSH ONE (15:51)
[2017-12-22 17:28] VITALS: BP 105/74; PULSE 95
== END 2017-12-22 16:30 | disposition home or self-care (01) ==
LOC: JONCCHEMO 07:49 → J7W 09:54 → JONCCHEMO 16:30
PROVIDERS: ATTEND Internal Medicine Hematology & Oncology
DX: Z51.11 Encounter for antineoplastic chemotherapy (principal); C34.90 Malignant neoplasm of unspecified part of unspecified bronchus or lung; Z87.891 Personal history of nicotine dependence
CPT/HCPCS: 36415; 80053; 80076; 83735; 85025; 96361; 96372; 96375; 96411; 96413; 96417; J1100; J2469; J9305

== ENCOUNTER 2017-12-23 07:38 | Day surgery (SDC) | payer OTHER ==
[2017-12-23] MEDS ORDERED: PEGFILGRASTIM 6 MG/0.6 ML DISP.SYRIN SQ ONE (08:00)
[2017-12-23 13:39] VITALS: BP 105/82; PULSE 94; TEMP 97.6
== END 2017-12-23 12:30 | disposition home or self-care (01) ==
LOC: JONCNONCHE 07:38 → J7W 12:20 → JONCNONCHE 12:30
PROVIDERS: ATTEND Internal Medicine Hematology & Oncology
PROC: 3E013GC Introduction of Other Therapeutic Substance into Subcutaneous Tissue, Percutaneous Approach (ICD-10-PCS; principal; 2017-12-23)
DX: C34.90 Malignant neoplasm of unspecified part of unspecified bronchus or lung (principal)
CPT/HCPCS: 96372; J2505

== ENCOUNTER 2018-01-12 07:33 | Day surgery (SDC) | payer OTHER ==
[2018-01-12] MEDS ORDERED: PALONOSETRON HCL 0.25 MG/5 ML VIAL IVPUSH ONE (08:00)
[2018-01-12] MEDS ORDERED: CYANOCOBALAMIN (VITAMIN B-12) 1000 MCG/1 ML VIAL IM ONE (08:00)
[2018-01-12] MEDS ORDERED: DEXAMETHASONE INJECTION 20 MG in SODIUM CHLORIDE 100 ML IVPB ONE (08:00)
[2018-01-12] MEDS ORDERED: SODIUM CHLORIDE IVPB ONE ×3 (08:30→12:30)
[2018-01-12] MEDS ORDERED: PEMETREXED DISODIUM IVPB ONE (08:30)
[2018-01-12] MEDS ORDERED: CARBOPLATIN IVPB ONE ×2 (08:40→12:30)
[2018-01-12 09:13] LABS: EOS % 0.2 % (0-4.5); HEMATOCRIT 42.9 % (32.4-45.2); HEMOGLOBIN 15.2 GM/dL (10.7-15.3); LYMPH % 3.8 % (8-40); MCH 35.2 pg (25.7-33.7); MCHC 35.4 g/dl (32.0-36.0); MEAN CELL VOLUME 99.4 fl (80-96); MEAN PLT VOLUME 7.5 fl (7.5-11.1); MONO % 9.5 % (3.8-10.2); NEUT % 86.5 % (42.8-82.8); PLATELET COUNT 448 K/MM3 (134-434); RBC 4.31 M/mm3 (3.60-5.2); WHITE BLOOD COUNT 13.8 K/mm3 (4.0-10.0)
[2018-01-12 09:54] LABS: ALBUMIN 2.9 g/dl (3.4-5.0); ALK PHOS 209 U/L (45-117); ANION GAP 10 (8-16); BILIRUBIN,DIRECT 0.3 mg/dL (0.0-0.2); BILIRUBIN,TOTAL 0.7 mg/dL (0.2-1.0); BLOOD UREA NITROGEN 9 mg/dL (7-18); CALCIUM 8.7 mg/dL (8.5-10.1); CHLORIDE 94 mmol/L (98-107); CO2 32 mmol/L (21-32); CREATININE 0.6 mg/dL (0.55-1.02); GLUCOSE,RANDOM 88 mg/dL (74-106); MAGNESIUM 1.6 mg/dL (1.8-2.4); POTASSIUM 3.8 mmol/L (3.5-5.1); SGOT/AST 38 U/L (15-37); SGPT/ALT 31 U/L (12-78); SODIUM 136 mmol/L (136-145); TOT PROT 6.6 g/dl (6.4-8.2)
[2018-01-12] MEDS ORDERED: SODIUM CHLORIDE 1,000 ML IV SCH (10:15)
[2018-01-12] MEDS ORDERED: MAGNESIUM SULF 50% (8.12 MEQ/2 ML-1 GM VIAL) IVPB ONE (10:16)
[2018-01-12] MEDS ORDERED: MAGNESIUM SULF 50% (8.12 MEQ/2 ML-1 GM VIAL) ONE (10:30)
[2018-01-12 11:19] VITALS: TEMP 98.1
[2018-01-12] MEDS ORDERED: PORTA CATH FLUSH 10 ML IVPUSH ONE (11:19)
[2018-01-12 12:31] LABS: URINE APPEARANCE CLEAR; URINE BILIRUBIN NEGATIVE (NEGATIVE); URINE BLOOD NEGATIVE (NEGATIVE); URINE COLOR YELLOW; URINE GLUCOSE (UA) NEGATIVE (NEGATIVE); URINE KETONE NEGATIVE (NEGATIVE); URINE LEUK ESTERASE NEGATIVE (NEGATIVE); URINE NITRITE NEGATIVE (NEGATIVE); URINE PROTEIN NEGATIVE (NEGATIVE); URINE UROBILINOGEN NEGATIVE mg/dL (0.2-1.0)
[2018-01-12 18:49] VITALS: BP 93/73; PULSE 103
== END 2018-01-12 16:30 | disposition home or self-care (01) ==
LOC: JONCCHEMO 07:33 → J7W 09:42 → JONCCHEMO 16:30
PROVIDERS: ATTEND Internal Medicine Hematology & Oncology
PROC: 3E04305 Introduction of Other Antineoplastic into Central Vein, Percutaneous Approach (ICD-10-PCS; principal; 2018-01-12)
PROC: 3E013GC Introduction of Other Therapeutic Substance into Subcutaneous Tissue, Percutaneous Approach (ICD-10-PCS; 2018-01-12)
DX: Z51.11 Encounter for antineoplastic chemotherapy (principal); C34.90 Malignant neoplasm of unspecified part of unspecified bronchus or lung
CPT/HCPCS: 36415; 80053; 80076; 81003; 83735; 85025; 87086; 96361; 96372; 96375; 96411; 96413; 96415; 96417; J1100; J2469; J9305

== ENCOUNTER 2018-01-13 07:27 | Day surgery (SDC) | payer OTHER ==
[2018-01-13] MEDS ORDERED: PEGFILGRASTIM 6 MG/0.6 ML DISP.SYRIN SQ ONE (08:00)
[2018-01-13 14:45] VITALS: BP 98/74; PULSE 99; TEMP 97.2
== END 2018-01-13 14:42 | disposition home or self-care (01) ==
LOC: JONCCHEMO 07:27 → J7W 14:11 → JONCCHEMO 14:42
PROVIDERS: ATTEND Internal Medicine Hematology & Oncology
PROC: 3E013GC Introduction of Other Therapeutic Substance into Subcutaneous Tissue, Percutaneous Approach (ICD-10-PCS; principal; 2018-01-13)
DX: C34.90 Malignant neoplasm of unspecified part of unspecified bronchus or lung (principal); Z76.89 Persons encountering health services in other specified circumstances
CPT/HCPCS: 96372; J2505

== ENCOUNTER 2018-02-02 07:25 | Day surgery (SDC) | payer OTHER ==
[2018-02-02] MEDS ORDERED: SODIUM CHLORIDE 1,000 ML IV SCH ×2 (09:30→11:00)
[2018-02-02] MEDS ORDERED: CYANOCOBALAMIN (VITAMIN B-12) 1000 MCG/1 ML VIAL IM ONE (10:00)
[2018-02-02] MEDS ORDERED: PALONOSETRON HCL 0.25 MG/5 ML VIAL IVPUSH ONE (10:00)
[2018-02-02] MEDS ORDERED: DEXAMETHASONE INJECTION 20 MG in SODIUM CHLORIDE 100 ML IVPB ONE (10:00)
[2018-02-02 10:09] LABS: EOS % 1.4 % (0-4.5); HEMATOCRIT 37.6 % (32.4-45.2); HEMOGLOBIN 13.1 GM/dL (10.7-15.3); LYMPH % 3.8 % (8-40); MCH 34.1 pg (25.7-33.7); MCHC 34.7 g/dl (32.0-36.0); MEAN CELL VOLUME 98.2 fl (80-96); NEUT % 79.8 % (42.8-82.8); PLATELET COUNT 660 K/MM3 (134-434); RBC 3.83 M/mm3 (3.60-5.2); RDW 17.3 % (11.6-15.6); WHITE BLOOD COUNT 14.9 K/mm3 (4.0-10.0)
[2018-02-02] MEDS ORDERED: SODIUM CHLORIDE IVPB ONE ×3 (10:30→12:30)
[2018-02-02] MEDS ORDERED: PEMETREXED DISODIUM IVPB ONE (10:30)
[2018-02-02 10:36] LABS: ALBUMIN 2.9 g/dl (3.4-5.0); ANION GAP 8 (8-16); BILIRUBIN,TOTAL 0.9 mg/dL (0.2-1.0); BLOOD UREA NITROGEN 12 mg/dL (7-18); CHLORIDE 101 mmol/L (98-107); CO2 28 mmol/L (21-32); CREATININE 0.7 mg/dL (0.55-1.02); GLUCOSE,RANDOM 76 mg/dL (74-106); MAGNESIUM 1.9 mg/dL (1.8-2.4); SGOT/AST 18 U/L (15-37); SGPT/ALT 22 U/L (12-78); SODIUM 137 mmol/L (136-145); TOT PROT 6.9 g/dl (6.4-8.2)
[2018-02-02 10:37] LABS: ALK PHOS 193 U/L (45-117)
[2018-02-02] MEDS ORDERED: CARBOPLATIN IVPB ONE ×2 (10:40→12:30)
[2018-02-02] MEDS ORDERED: PORTA CATH FLUSH 10 ML IVPUSH ONE ×2 (10:48→16:03)
[2018-02-02 16:03] VITALS: BP 91/63
[2018-02-02 16:09] VITALS: PULSE 68; TEMP 97.7
== END 2018-02-02 14:00 | disposition home or self-care (01) ==
LOC: JONCCHEMO 07:25 → J7W 10:25 → JONCCHEMO 14:00
PROVIDERS: ATTEND Internal Medicine Hematology & Oncology
DX: Z51.11 Encounter for antineoplastic chemotherapy (principal); C34.90 Malignant neoplasm of unspecified part of unspecified bronchus or lung
CPT/HCPCS: 36415; 80053; 83735; 85025; 96361; 96367; 96375; 96413; 96417; J1100; J2469; J9305

== ENCOUNTER 2018-02-23 08:02 | Day surgery (SDC) | payer OTHER ==
[~2018-02-23 08:02] MED LIST changes: +CYANOCOBALAMIN (VITAMIN B-12) 1000 MCG/1 ML VIAL IM ONE; +DEXAMETHASONE INJECTION 20 MG in SODIUM CHLORIDE 100 ML IVPB ONE; -LIDOCAINE HCL 1%, 10 MG/ML (20ML VIAL) ID ONE; +PALONOSETRON HCL 0.25 MG/5 ML VIAL IVPUSH ONE; +SODIUM CHLORIDE 250 ML IV ONE
[2018-02-23] MEDS ORDERED: DEXAMETHASONE SOD PHOSPHATE 10 MG/1 ML VIAL IVPUSH ONE (08:30)
[2018-02-23] MEDS ORDERED: SODIUM CHLORIDE IVPB ONE ×2 (08:30→08:40)
[2018-02-23] MEDS ORDERED: PEMETREXED DISODIUM IVPB ONE (08:30)
[2018-02-23] MEDS ORDERED: CARBOPLATIN IVPB ONE (08:40)
[2018-02-23] MEDS ORDERED: NIVOLUMAB 200 MG, NIVOLUMAB 40 MG in SODIUM CHLORIDE 100 ML IVPB ONE (09:00)
[2018-02-23] MEDS ORDERED: SODIUM CHLORIDE 250 ML IV ONE (10:00)
[2018-02-23 10:42] LABS: BASO % 0.5 % (0-2.0); EOS % 0.8 % (0-4.5); HEMATOCRIT 36.2 % (32.4-45.2); HEMOGLOBIN 12.8 GM/dL (10.7-15.3); LYMPH % 3.2 % (8-40); MCH 37.6 pg (25.7-33.7); MCHC 35.5 g/dl (32.0-36.0); MEAN CELL VOLUME 105.9 fl (80-96); MEAN PLT VOLUME 7.5 fl (7.5-11.1); MONO % 9.5 % (3.8-10.2); PLATELET COUNT 396 K/MM3 (134-434); RBC 3.42 M/mm3 (3.60-5.2); RDW 21.8 % (11.6-15.6); WHITE BLOOD COUNT 15.1 K/mm3 (4.0-10.0)
[2018-02-23 11:06] LABS: ALBUMIN 2.8 g/dl (3.4-5.0); ANION GAP 7 (8-16); BILIRUBIN,DIRECT 0.4 mg/dL (0.0-0.2); BLOOD UREA NITROGEN 12 mg/dL (7-18); CALCIUM 8.9 mg/dL (8.5-10.1); CHLORIDE 102 mmol/L (98-107); CO2 31 mmol/L (21-32); CREATININE 0.6 mg/dL (0.55-1.02); GLUCOSE,RANDOM 86 mg/dL (74-106); MAGNESIUM 1.6 mg/dL (1.8-2.4); POTASSIUM 3.9 mmol/L (3.5-5.1); SGOT/AST 15 U/L (15-37); SODIUM 140 mmol/L (136-145); TOT PROT 6.5 g/dl (6.4-8.2)
[2018-02-23 11:14] LABS: ALK PHOS 241 U/L (45-117); SGPT/ALT 17 U/L (12-78)
[2018-02-23] MEDS ORDERED: MAGNESIUM 2GM/50ML STERILE WATER IVPB IVPB ONE (12:00)
[2018-02-23] MEDS ORDERED: LIDOCAINE 2.5%/PRILOCAINE 2.5% (5 Gram/TUBE) TP ONE (12:15)
[2018-02-23] MEDS ORDERED: DEXAMETHASONE SOD PHOSPHATE 10 MG/1 ML VIAL ONE (13:52)
[2018-02-23 14:32] VITALS: TEMP 97.6
[2018-02-23 16:54] VITALS: BP 105/72; PULSE 98
== END 2018-02-23 16:30 | disposition home or self-care (01) ==
LOC: JONCCHEMO 08:02 → J7W 11:52 → JONCCHEMO 16:30
PROVIDERS: ATTEND Internal Medicine Hematology & Oncology
DX: Z51.11 Encounter for antineoplastic chemotherapy (principal); C34.90 Malignant neoplasm of unspecified part of unspecified bronchus or lung
CPT/HCPCS: 36415; 80053; 80076; 83735; 85025; 96361; 96367; 96375; 96413; 96417; J1100; J9299

== ENCOUNTER 2018-03-09 07:23 | Day surgery (SDC) | payer OTHER ==
[2018-03-09] MEDS ORDERED: SODIUM CHLORIDE 250 ML IV ONE ×2 (08:00→10:00)
[2018-03-09] MEDS ORDERED: DEXAMETHASONE SOD PHOSPHATE 10 MG/1 ML VIAL IVPUSH ONE (08:30)
[2018-03-09] MEDS ORDERED: NIVOLUMAB 200 MG, NIVOLUMAB 40 MG in SODIUM CHLORIDE 100 ML IVPB ONE (09:00)
[2018-03-09 11:03] LABS: BASO % 1.2 % (0-2.0); EOS % 0.9 % (0-4.5); HEMATOCRIT 37.8 % (32.4-45.2); HEMOGLOBIN 13.3 GM/dL (10.7-15.3); LYMPH % 3.8 % (8-40); MCH 37.6 pg (25.7-33.7); MCHC 35.3 g/dl (32.0-36.0); MEAN CELL VOLUME 106.5 fl (80-96); MEAN PLT VOLUME 7.2 fl (7.5-11.1); MONO % 11.8 % (3.8-10.2); NEUT % 82.3 % (42.8-82.8); PLATELET COUNT 567 K/MM3 (134-434); RBC 3.55 M/mm3 (3.60-5.2); RDW 19.6 % (11.6-15.6); WHITE BLOOD COUNT 8.9 K/mm3 (4.0-10.0)
[2018-03-09 11:22] LABS: ALBUMIN 2.7 g/dl (3.4-5.0); BILIRUBIN,DIRECT 0.5 mg/dL (0.0-0.2); MAGNESIUM 1.7 mg/dL (1.8-2.4); SGOT/AST 17 U/L (15-37); SGPT/ALT 17 U/L (12-78); TOT PROT 6.6 g/dl (6.4-8.2)
[2018-03-09 11:23] LABS: ALK PHOS 217 U/L (45-117)
[2018-03-09] MEDS ORDERED: ONDANSETRON 4 MG/2 ML VIAL IVPB ONE (11:47)
[2018-03-09] MEDS ORDERED: MAGNESIUM SULF 50% (8.12 MEQ/2 ML-1 GM VIAL) IVPB ONE (11:47)
[2018-03-09 14:07] LABS: ANION GAP 15 (8-16); BLOOD UREA NITROGEN 16 mg/dL (7-18); CALCIUM 9.4 mg/dL (8.5-10.1); CHLORIDE 99 mmol/L (98-107); CO2 23 mmol/L (21-32); CREATININE 0.7 mg/dL (0.55-1.02); GLUCOSE,RANDOM 141 mg/dL (74-106); SODIUM 137 mmol/L (136-145)
[2018-03-09 15:31] VITALS: TEMP 97.3
[2018-03-09 16:12] VITALS: BP 111/56; PULSE 99
[2018-03-09] MEDS ORDERED: PORTA CATH FLUSH 10 ML IVPUSH ONE (16:12)
== END 2018-03-09 15:45 | disposition home or self-care (01) ==
LOC: JONCCHEMO 07:23 → J7W 11:33 → JONCCHEMO 15:45
PROVIDERS: ATTEND Internal Medicine Hematology & Oncology
DX: Z51.11 Encounter for antineoplastic chemotherapy (principal); C34.90 Malignant neoplasm of unspecified part of unspecified bronchus or lung
CPT/HCPCS: 36415; 71046-TC-FY; 80053; 80076; 83690; 83735; 84439; 84443; 85025; 96366; 96367; 96375; 96413; 96417; J1100; J9299

== ENCOUNTER 2018-03-17 16:32 | Inpatient (IN) | payer OTHER ==
--- NOTE | 2018-03-17 16:54 | PDOC ---
Rapid Medical Evaluation Time Seen by Provider: 03/17/18 16:51 Medical Evaluation: Allergies Allergy/AdvReac Type Severity Reaction Status Date / Time No Known Allergies Allergy Verified 01/11/18 11:18 03/17/18 16:52 I have performed a brief in-person evaluation of this patient. The patient presents with a chief complaint of: hx of lung ca, chemo pt of Dr. Matthew, increasing abdominal distension x 2 days, weakness, "i don't feel good" , denies F/V/D, chronic nausea, "O2 sat dropping" Pertinent physical exam findings: O2 sat 84%, intermittent wheezing to RLL, tachy to 110, bp 92/43 I have ordered the following: labs, O2, cxr The patient will proceed to the ED for further evaluation. Discharge Disposition - Diagnosis Weakness - Referrals - Patient Instructions - Post Discharge Activity
[2018-03-17 18:06] LABS: INR 2.53 (0.82-1.09); PROTHROMBIN TIME (PATIENT) 28.6 SEC (9.98-11.88)
[2018-03-17 18:22] LABS: ALBUMIN 2.6 g/dl (3.4-5.0); ANION GAP 9 (8-16); BLOOD UREA NITROGEN 19 mg/dL (7-18); CALCIUM 8.6 mg/dL (8.5-10.1); CHLORIDE 98 mmol/L (98-107); CO2 27 mmol/L (21-32); GLUCOSE,RANDOM 94 mg/dL (74-106); POTASSIUM 4.2 mmol/L (3.5-5.1); SODIUM 134 mmol/L (136-145)
[2018-03-17 18:26] LABS: ALK PHOS 173 U/L (45-117); BILIRUBIN,TOTAL 1.1 mg/dL (0.2-1.0); CREATININE 0.7 mg/dL (0.55-1.02); SGOT/AST 27 U/L (15-37); SGPT/ALT 29 U/L (12-78); TOT PROT 5.9 g/dl (6.4-8.2)
[2018-03-17 18:35] LABS: BASO % 1.3 % (0-2.0); EOS % 0.9 % (0-4.5); HEMATOCRIT 41.9 % (32.4-45.2); LYMPH % 4.9 % (8-40); MCHC 33.4 g/dl (32.0-36.0); MEAN PLT VOLUME 7.3 fl (7.5-11.1); MONO % 16.3 % (3.8-10.2); NEUT % 76.6 % (42.8-82.8); RBC 3.99 M/mm3 (3.60-5.2); RDW 18.6 % (11.6-15.6); WHITE BLOOD COUNT 9.3 K/mm3 (4.0-10.0)
--- NOTE | 2018-03-17 19:31 | PDOC ---
Attending Attestation - Resident Resident Name: Jean Mcbride - ED Attending Attestation I have performed the following: I have examined & evaluated the patient, The case was reviewed & discussed with the resident, I agree w/resident's findings & plan, Exceptions are as noted - HPI HPI: 03/17/18 19:24 "The patient is a 72 year old female, with a significant past medical history of stage IV lung cancer(on Chemotherapy), afib on eliquis, who presents to the emergency department with increasing leg swelling, abdominal distention, and shortness of breath for approximately 1 week. Patient has had recurrent L sided pleural effusions and reports she had 2 left pleurocenteses in October of 2017. Patient states she had a pleur evac in place, which was removed 2 weeks ago, because it was not draining any fluid. Since then, she has had increasing SOB with O2 sat progressively dipping to low 80s. Pt does not use home O2. Pt also reports increased swelling in her legs, as well as abdominal distention. Pt also reports intermittent diffuse abdominal pain. She reports chronic constipation. She also endorses chronic nausea, but denies any vomiting or diarrhea. She denies any recent fever, chills, or cough. Oncologist: Dr. Matthew " - Physicial Exam PE: 03/17/18 19:31 "GENERAL: Awake, alert, and fully oriented, in no acute distress. HEAD: No signs of trauma EYES: PERRLA, EOMI, sclera anicteric, conjunctiva clear ENT: Auricles normal inspection, hearing grossly normal, nares patent, oropharynx clear without exudates. Moist mucosa NECK: Nontender, no stepoffs, Normal ROM, supple, no lymphadenopathy, JVD, or masses LUNGS: + Diminished breath sounds bilaterally. No wheezes, and no crackles HEART: Regular rate and rhythm, normal S1 and S2, no murmurs, rubs or gallops ABDOMEN: Soft, mildly distended, non-tympanitic, no fluid wave, normoactive bowel sounds. No guarding, no rebound. No masses EXTREMITIES: Normal range of motion, no edema. No clubbing or cyanosis. No cords, erythema, or tenderness NEUROLOGICAL: Cranial nerves II through XII intact. 5/5 strength and sensation in all extremities, Normal speech, normal gait, normal cerebellar function SKIN: Warm, Dry, normal turgor, no rashes or lesions noted. " - Medical Decision Making 03/17/18 19:32 72 F with metastatic lung CA, presenting with SOB, abdominal distention, leg swelling. Likely has recurrent pleural effusion given diminished breath sounds on exam and worsening hypoxia. Pt with abdominal distention but no signs of obstruction. Possibly 2/2 constipation vs malignancy vs malignant ascites. - Labs - CXR - Abd XR - Admit
--- NOTE | 2018-03-17 20:04 | PDOC ---
History of Present Illness <Elias Helm - Last Filed: 03/17/18 22:48> - General History Source: Patient - History of Present Illness Initial Comments: 03/17/18 19:57 72F with pmh of stage IV metastatic lung cancer(on Chemotherapy), afib on eliquis, who presents to the emergency department with increasing leg swelling, abdominal distention, and shortness of breath for approximately 1 week. Patient has had recurrent L sided pleural effusions and reports she had 2 left pleurocenteses in October of 2017. Patient states she had a pleur evac in place , which was removed 2 weeks ago, because it was not draining any fluid. Since then, she has had increasing SOB with O2 sat progressively dipping to low 80s. Pt does not use home O2. Pt also reports increased swelling in her legs, as well as abdominal distention. Pt also reports intermittent diffuse abdominal pain as well as difficulty lifting her legs. She reports chronic constipation. She also endorses chronic nausea, but denies any vomiting or diarrhea. She denies any recent fever, chills, or cough. <Jean Mcbride - Last Filed: 03/17/18 22:53> - General Chief Complaint: Pain, Acute Stated Complaint: PCP SENT Time Seen by Provider: 03/17/18 16:51 Past History <Elias Helm - Last Filed: 03/17/18 22:48> - Past Medical History Anemia: No Asthma: No Cancer: Yes (Lung CA) Cardiac Disorders: Yes (a.fib) CVA: No COPD: No CHF: No Dementia: No Diabetes: No GI Disorders: No Disorders: No HTN: Yes Hypercholesterolemia: Yes Liver Disease: No Seizures: No Thyroid Disease: No - Surgical History Abdominal Surgery: No Appendectomy: No Cardiac Surgery: No Cholecystectomy: Yes Lung Surgery: Yes (LEFT VATS 12/08/17- PLUREX CATH) Neurologic Surgery: No Orthopedic Surgery: No - Immunization History Immunization Up to Date: Yes - Suicide/Smoking/Psychosocial Hx Smoking History: Former smoker Have you smoked in the past 12 months: Yes Number of Cigarettes Smoked Daily: 20 If you are a former smoker, when did you quit?: 11/03/17 Information on smoking cessation initiated: No 'Breaking Loose' booklet given: 11/20/17 Hx Alcohol Use: No Drug/Substance Use Hx: No Substance Use Type: None Hx Substance Use Treatment: No <Jean Mcbride - Last Filed: 03/17/18 22:53> - Past Medical History Allergies/Adverse Reactions: Allergies Allergy/AdvReac Type Severity Reaction Status Date / Time No Known Allergies Allergy Verified 03/17/18 16:58 Home Medications: Ambulatory Orders Apixaban [Eliquis] 5 mg PO BID 03/17/18 Diltiazem Cd [Cardizem Cd -] 180 mg PO DAILY 03/17/18 Folic Acid - 1 mg PO DAILY 03/17/18 Furosemide [Lasix] 20 mg PO DAILY 03/17/18 Metoprolol Tartrate [Lopressor] 50 mg PO BID 03/17/18 Omeprazole 20 mg PO DAILY 03/17/18 Pravastatin Sodium [Pravachol (Nf)] 20 mg PO HS 03/17/18 Review of Systems - Review of Systems Able to Perform ROS?: Yes Is the patient limited Latvian proficient: No Constitutional: Yes: Weakness HEENTM: No: Symptoms Reported Respiratory: Yes: Shortness of Breath Cardiac (ROS): No: Symptoms Reported ABD/GI: Yes: Abdominal Distended, Abdominal cramping All Other Systems: Reviewed and Negative <Jean Mcbride - Last Filed: 03/17/18 22:53> *Physical Exam - Vital Signs Last Vital Signs Temp Pulse Resp BP Pulse Ox 97.2 F L 110 H 20 92/43 80 L 03/17/18 16:52 03/17/18 16:52 03/17/18 16:52 03/17/18 16:52 03/17/18 16:52 <Elias Helm - Last Filed: 03/17/18 22:48> - Vital Signs Last Vital Signs Temp Pulse Resp BP Pulse Ox 97.2 F L 110 H 20 92/43 80 L 03/17/18 16:52 03/17/18 16:52 03/17/18 16:52 03/17/18 16:52 03/17/18 16:52 - Physical Exam Comments: 03/17/18 21:38 "GENERAL: Awake, alert, and fully oriented, in no acute distress. HEAD: No signs of trauma EYES: PERRLA, EOMI, sclera anicteric, conjunctiva clear ENT: Auricles normal inspection, hearing grossly normal, nares patent, oropharynx clear without exudates. Moist mucosa NECK: Nontender, no stepoffs, Normal ROM, supple, no lymphadenopathy, JVD, or masses LUNGS: + Diminished breath sounds bilaterally. No wheezes, and no crackles HEART: Regular rate and rhythm, normal S1 and S2, no murmurs, rubs or gallops ABDOMEN: Soft, mildly distended, non-tympanitic, no fluid wave, normoactive bowel sounds. No guarding, no rebound. No masses EXTREMITIES: Normal range of motion, no edema. No clubbing or cyanosis. No cords, erythema, or tenderness NEUROLOGICAL: Cranial nerves II through XII intact. 5/5 strength and sensation in all extremities, Normal speech, normal gait, normal cerebellar function SKIN: Warm, Dry, normal turgor, no rashes or lesions noted. General Appearance: Yes: Appropriately Dressed, Cachetic, Thin. No: Apparent Distress HEENT: positive: EOMI, CALVIN Respiratory/Chest: positive: Decreased Breath Sounds. negative: Chest Tender, Respiratory Distress Cardiovascular: positive: Regular Rhythm, Tachycardia Gastrointestinal/Abdominal: positive: Normal Bowel Sounds, Soft, Protuberent, Distended. negative: Tender, Pulsatile Mass Integumentary: positive: Normal Color, Dry, Warm Neurologic: positive: Fully Oriented, Alert, Normal Mood/Affect <Jean Mcbride - Last Filed: 03/17/18 22:53> ED Treatment Course - LABORATORY CBC & Chemistry Diagram: 03/17/18 17:34 03/17/18 17:34 - ADDITIONAL ORDERS Additional order review: Laboratory Results 03/17/18 03/17/18 03/17/18 21:16 18:23 17:34 PT with INR 28.60 H INR 2.53 H D Sodium Potassium Chloride Carbon Dioxide Anion Gap BUN Creatinine Creat Clearance w eGFR Random Glucose Lactic Acid Calcium Total Bilirubin AST ALT Alkaline Phosphatase Creatine Kinase Troponin I B-Natriuretic Peptide 3563.42 H Total Protein Albumin Urine Color Yellow Urine Appearance Slcloudy Urine pH 5.0 D Ur Specific Percy 1.012 Urine Protein Negative Urine Glucose (UA) Negative Urine Ketones Negative Urine Blood Negative Urine Nitrite Negative Urine Bilirubin Negative Urine Urobilinogen 4.0 e.u/dl H Ur Leukocyte Esterase Negative Blood Type Antibody Screen 03/17/18 03/17/18 03/17/18 17:34 17:34 17:34 PT with INR INR Sodium Potassium Chloride Carbon Dioxide Anion Gap BUN Creatinine Creat Clearance w eGFR Random Glucose Lactic Acid 2.3 H* Calcium Total Bilirubin AST ALT Alkaline Phosphatase Creatine Kinase 28 Troponin I < 0.02 B-Natriuretic Peptide Total Protein Albumin Urine Color Urine Appearance Urine pH Ur Specific Percy Urine Protein Urine Glucose (UA) Urine Ketones Urine Blood Urine Nitrite Urine Bilirubin Urine Urobilinogen Ur Leukocyte Esterase Blood Type O POSITIVE Antibody Screen Negative 03/17/18 17:34 PT with INR INR Sodium 134 L Potassium 4.2 Chloride 98 Carbon Dioxide 27 Anion Gap 9 BUN 19 H Creatinine 0.7 Creat Clearance w eGFR > 60 Random Glucose 94 Lactic Acid Calcium 8.6 Total Bilirubin 1.1 H AST 27 ALT 29 Alkaline Phosphatase 173 H Creatine Kinase Troponin I B-Natriuretic Peptide Total Protein 5.9 L Albumin 2.6 L Urine Color Urine Appearance Urine pH Ur Specific Percy Urine Protein Urine Glucose (UA) Urine Ketones Urine Blood Urine Nitrite Urine Bilirubin Urine Urobilinogen Ur Leukocyte Esterase Blood Type Antibody Screen 03/17/18 17:34 RBC 3.99 MCV 105.0 H MCHC 33.4 RDW 18.6 H MPV 7.3 L Neutrophils % 76.6 Lymphocytes % 4.9 L D Monocytes % 16.3 H Eosinophils % 0.9 Basophils % 1.3 - RADIOLOGY Radiology Studies Ordered: Category Date Time Status ABDOMEN & PELVIS CT W/O CONTR [CT] Stat CT Scan 03/17/18 19:34 Completed - Medications Given in the ED: ED Medications Discontinued Medications Generic Name Dose Route Start Last Admin Trade Name Freq PRN Reason Stop Dose Admin Oxycodone/Acetaminophen 0.5 combo 03/17/18 19:20 03/17/18 20:10 Percocet 5/325 - PO 03/17/18 19:21 0.5 combo ONCE ONE Administration <Ou,Elias - Last Filed: 03/17/18 22:48> - LABORATORY CBC & Chemistry Diagram: 03/17/18 17:34 03/17/18 17:34 - ADDITIONAL ORDERS Additional order review: Laboratory Results 03/17/18 03/17/18 03/17/18 18:23 17:34 17:34 PT with INR 28.60 H INR 2.53 H D Sodium Potassium Chloride Carbon Dioxide Anion Gap BUN Creatinine Creat Clearance w eGFR Random Glucose Lactic Acid Calcium Total Bilirubin AST ALT Alkaline Phosphatase Creatine Kinase Troponin I B-Natriuretic Peptide 3563.42 H Total Protein Albumin Blood Type O POSITIVE Antibody Screen Negative 03/17/18 03/17/18 03/17/18 17:34 17:34 17:34 PT with INR INR Sodium 134 L Potassium 4.2 Chloride 98 Carbon Dioxide 27 Anion Gap 9 BUN 19 H Creatinine 0.7 Creat Clearance w eGFR > 60 Random Glucose 94 Lactic Acid 2.3 H* Calcium 8.6 Total Bilirubin 1.1 H AST 27 ALT 29 Alkaline Phosphatase 173 H Creatine Kinase 28 Troponin I < 0.02 B-Natriuretic Peptide Total Protein 5.9 L Albumin 2.6 L Blood Type Antibody Screen 03/17/18 17:34 RBC 3.99 MCV 105.0 H MCHC 33.4 RDW 18.6 H MPV 7.3 L Neutrophils % 76.6 Lymphocytes % 4.9 L D Monocytes % 16.3 H Eosinophils % 0.9 Basophils % 1.3 - RADIOLOGY Radiology Studies Ordered: Category Date Time Status CHEST CT WITHOUT CONTRAST [CT] Stat CT Scan 03/17/18 19:29 Ordered <Jean Mcbride - Last Filed: 03/17/18 22:53> Medical Decision Making - Medical Decision Making 03/17/18 21:46 72 F with metastatic lung CA, presenting with SOB, abdominal distention, leg swelling. Likely has recurrent pleural effusion given diminished breath sounds on exam and worsening hypoxia. Pt with abdominal distention but no signs of obstruction. Possibly 2/2 constipation vs malignancy vs malignant ascites. Will obtain dry ct abdomen, labs, admit <Jean Mcbride - Last Filed: 03/17/18 22:53> *DC/Admit/Observation/Transfer - Discharge Dispostion Admit: Yes <Elias Helm - Last Filed: 03/17/18 22:48> <Jean Mcbride - Last Filed: 03/17/18 22:53> Diagnosis at time of Disposition: Weakness, Pleural effusion - Referrals Referrals: Kia Aleman MD [Primary Care Provider] - - Patient Instructions - Post Discharge Activity
[2018-03-17 20:05] LABS: PLATELET COUNT 467 K/MM3 (134-434)
[2018-03-17 20:06] LABS: PLATELET ESTIMATE SLT INCREASE
[2018-03-17 20:07] LABS: ADD RBC MORPHOLOGY YES
[2018-03-17 20:10] LABS: ANISOCYTOSIS 1+; MACROCYTOSIS 3+
[2018-03-17] MEDS ORDERED: FUROSEMIDE 40 MG/4 ML INJECTABLE VIAL IVPUSH ONE (21:19)
[2018-03-17 21:23] LABS: URINE APPEARANCE SLCLOUDY; URINE BILIRUBIN NEGATIVE (<2.0 mg/dL); URINE BLOOD NEGATIVE (NEGATIVE); URINE COLOR YELLOW; URINE GLUCOSE (UA) NEGATIVE (NEGATIVE); URINE KETONE NEGATIVE (NEGATIVE); URINE LEUK ESTERASE NEGATIVE (NEGATIVE); URINE NITRITE NEGATIVE (NEGATIVE); URINE PROTEIN NEGATIVE (NEGATIVE); URINE UROBILINOGEN 4.0 E.U/dl mg/dL (0.2-1.0)
--- NOTE | 2018-03-17 22:30 | PN ---
Progress Note (short form) - Note Progress Note: Oncology Progress Note: Patient seen and examined in the ER. Daughters at bedside. Was asked to come in by for weakness in the LE ,SOB. Briefly, Pt with Stage IV Lung Ca, now on second line , with immunotherapy. ROS is +SOB, Weakness, LE heaviness, increased abd distension, but family claims that pt has normal urinary and bowel pattern. NO fevers, appetite OK. Vitals on arrival reviewed O/E: General: In wheel chair , on O2 HEENT: NCAT Lungs: Decreased breath sounds Cor: Tachy abd: distended LE: no edema Neuro: not done, pt being wheeled to CT scan Last Vital Signs Temp Pulse Resp BP Pulse Ox 97.2 F L 110 H 20 92/43 80 L 03/17/18 16:52 03/17/18 16:52 03/17/18 16:52 03/17/18 16:52 03/17/18 16:52 CBC, BMP 03/17/18 17:34 03/17/18 17:34 SOB with Hypoxia r/o malignant effusion, infection vs immunotherapy AE ( ?pneumonitis ) for CT chest For PUlm consult abd distension : ?etiology ?LE weakness --r/o spinal disease ?ascites Order MRI lumbar spine CT a/p ordered Stage IV Lung Ca: for re-staging scans on immunotherapy ( second line ) will follow
--- NOTE | 2018-03-17 22:52 | HP ---
CHIEF COMPLAINT: SOB, Lower Leg Swelling, Abdominal Distention PCP: Dr. Aleman HISTORY OF PRESENT ILLNESS: This is a pleasant 72 y/o woman with a PMH Stage IV Metastatic Lung Ca (on chemo ), Afib (on Eliquis). Who presents to the ED with her daughters for progressively SOB, abdominal distention, lower extremity edema. Patient's daughters report the patient having a drop in her O2- 80's. Patient is not on home O2. Per the daughter, the patient had been constipated x4 days. Given laxatives then had a BM on Thursday. Patient denies fever, chills, cough, ER course was notable for: (1) CTAP- Moderate right pleural effusion and lower lobe atelectasis, central left upper lobe mass, mediastinal lymphadenopathy, Ascites, Compression fracture of L1 of uncertain chronicity (2) (3) Recent Travel: None PAST MEDICAL HISTORY: See HPI PAST SURGICAL HISTORY: Social History: Smoking: Former Alcohol: None Drugs: None Lives with family, independent Family History: Non-contributory Allergies No Known Allergies Allergy (Verified 03/17/18 16:58) HOME MEDICATIONS: Home Medications Medication Instructions Recorded Apixaban [Eliquis] 5 mg PO BID 03/17/18 Diltiazem Cd [Cardizem Cd -] 180 mg PO DAILY 03/17/18 Folic Acid - 1 mg PO DAILY 03/17/18 Furosemide [Lasix] 20 mg PO DAILY 03/17/18 Metoprolol Tartrate [Lopressor] 50 mg PO BID 03/17/18 Omeprazole 20 mg PO DAILY 03/17/18 Pravastatin Sodium [Pravachol (Nf)] 20 mg PO HS 03/17/18 REVIEW OF SYSTEMS CONSTITUTIONAL: Absent: fever, chills, diaphoresis, generalized weakness, malaise, loss of appetite, weight change HEENT: Absent: rhinorrhea, nasal congestion, throat pain, throat swelling, difficulty swallowing, mouth swelling, ear pain, eye pain, visual changes CARDIOVASCULAR: Absent: chest pain, syncope, palpitations, irregular heart rate, lightheadedness , peripheral edema RESPIRATORY: cough, shortness of breath, dyspnea with exertion, Absent: orthopnea, wheezing, stridor, hemoptysis GASTROINTESTINAL: abdominal distension Absent: abdominal pain, nausea, vomiting, diarrhea, constipation, melena, hematochezia GENITOURINARY: Absent: dysuria, frequency, urgency, hesitancy, hematuria, flank pain, genital pain MUSCULOSKELETAL: Absent: myalgia, arthralgia, joint swelling, back pain, neck pain SKIN: Absent: rash, itching, pallor HEMATOLOGIC/IMMUNOLOGIC: Absent: easy bleeding, easy bruising, lymphadenopathy, frequent infections ENDOCRINE: Absent: unexplained weight gain, unexplained weight loss, heat intolerance, cold intolerance NEUROLOGIC: Absent: headache, focal weakness or paresthesias, dizziness, unsteady gait, seizure, mental status changes, bladder or bowel incontinence PSYCHIATRIC: Absent: anxiety, depression, suicidal or homicidal ideation, hallucinations. PHYSICAL EXAMINATION Vital Signs - 24 hr 03/17/18 16:52 Temperature 97.2 F L Pulse Rate 110 H Respiratory 20 Rate Blood Pressure 92/43 O2 Sat by Pulse 80 L Oximetry (%) GENERAL: Awake, alert, and fully oriented, in no acute distress. HEAD: Normal with no signs of trauma. EYES: Pupils equal, round and reactive to light, extraocular movements intact, sclera anicteric, conjunctiva clear. No lid lag. EARS, NOSE, THROAT: Ears normal, nares patent, oropharynx clear without exudates. Moist mucous membranes. NECK: Normal range of motion, supple without lymphadenopathy, JVD, or masses. LUNGS: Breath sounds diminished R-ML, L- lobe. No wheezes, and no crackles. No accessory muscle use. HEART: Irregular rate and rhythm, normal S1 and S2 without murmur, rub or gallop. ABDOMEN: Distended, hypoactive bowel sounds, Soft, nontender, no guarding, no rebound, no masses. No hepatomegaly or splenomegaly. MUSCULOSKELETAL: Normal range of motion at all joints. No bony deformities or tenderness. No CVA tenderness. UPPER EXTREMITIES: 2+ pulses, warm, well-perfused. No cyanosis. No clubbing. No peripheral edema. LOWER EXTREMITIES: +2 pitting B/L peripheral edema. 2+ pulses, warm, well- perfused. No calf tenderness. NEUROLOGICAL: Cranial nerves II-XII intact. Normal speech. Gait not observed. PSYCHIATRIC: Cooperative. Good eye contact. Appropriate mood and affect. SKIN: Warm, dry, normal turgor, no rashes or lesions noted, normal capillary refill. Laboratory Results - last 24 hr 03/17/18 03/17/18 03/17/18 17:34 17:34 17:34 WBC 9.3 RBC 3.99 Hgb 14.0 Hct 41.9 MCV 105.0 H MCH 35.0 H MCHC 33.4 RDW 18.6 H Plt Count 467 H MPV 7.3 L Neutrophils % 76.6 Lymphocytes % 4.9 L D Monocytes % 16.3 H Eosinophils % 0.9 Basophils % 1.3 Platelet Estimate Slt increase Platelet Comment Polychromasia 1+ Anisocytosis 1+ Macrocytosis 3+ PT with INR INR Sodium 134 L Potassium 4.2 Chloride 98 Carbon Dioxide 27 Anion Gap 9 BUN 19 H Creatinine 0.7 Creat Clearance w eGFR > 60 Random Glucose 94 Lactic Acid Calcium 8.6 Total Bilirubin 1.1 H AST 27 ALT 29 Alkaline Phosphatase 173 H Creatine Kinase 28 Troponin I < 0.02 B-Natriuretic Peptide Total Protein 5.9 L Albumin 2.6 L Urine Color Urine Appearance Urine pH Ur Specific [place] Urine Protein Urine Glucose (UA) Urine Ketones Urine Blood Urine Nitrite Urine Bilirubin Urine Urobilinogen Ur Leukocyte Esterase Blood Type Antibody Screen 03/17/18 03/17/18 03/17/18 17:34 17:34 17:34 WBC RBC Hgb Hct MCV MCH MCHC RDW Plt Count MPV Neutrophils % Lymphocytes % Monocytes % Eosinophils % Basophils % Platelet Estimate Platelet Comment Polychromasia Anisocytosis Macrocytosis PT with INR 28.60 H INR 2.53 H D Sodium Potassium Chloride Carbon Dioxide Anion Gap BUN Creatinine Creat Clearance w eGFR Random Glucose Lactic Acid 2.3 H* Calcium Total Bilirubin AST ALT Alkaline Phosphatase Creatine Kinase Troponin I B-Natriuretic Peptide Total Protein Albumin Urine Color Urine Appearance Urine pH Ur Specific [place] Urine Protein Urine Glucose (UA) Urine Ketones Urine Blood Urine Nitrite Urine Bilirubin Urine Urobilinogen Ur Leukocyte Esterase Blood Type O POSITIVE Antibody Screen Negative 03/17/18 03/17/18 18:23 21:16 WBC RBC Hgb Hct MCV MCH MCHC RDW Plt Count MPV Neutrophils % Lymphocytes % Monocytes % Eosinophils % Basophils % Platelet Estimate Platelet Comment Polychromasia Anisocytosis Macrocytosis PT with INR INR Sodium Potassium Chloride Carbon Dioxide Anion Gap BUN Creatinine Creat Clearance w eGFR Random Glucose Lactic Acid Calcium Total Bilirubin AST ALT Alkaline Phosphatase Creatine Kinase Troponin I B-Natriuretic Peptide 3563.42 H Total Protein Albumin Urine Color Yellow Urine Appearance Slcloudy Urine pH 5.0 D Ur Specific [place] 1.012 Urine Protein Negative Urine Glucose (UA) Negative Urine Ketones Negative Urine Blood Negative Urine Nitrite Negative Urine Bilirubin Negative Urine Urobilinogen 4.0 e.u/dl H Ur Leukocyte Esterase Negative Blood Type Antibody Screen ASSESSMENT/PLAN: This is a 72 y/o woman who presents to the ED progressive SOB, LE edema, Abdominal Distention. Admitted for Pleural Effusion, SOB, Acute CHF Exacerbation , Ascites Plan: 1. Pleural Effusion - Likely secondary to Malignancy vs Infectious vs PE vs GI - Wells Score 2.5 - CT Chest- reviewed - Chest xray- reviewed - Appreciate pulm consult - Consider IR for Thoracentesis - O2 - Lasix - Monitor CBC, BMP - Monitor vitals 2. SOB - See Above 3. CHF - Chest xray- CHF, cardiomegaly - Lasix - Appreciate Cardiology consult - Strict INOs - Daily weights - BNP 4. Abdominal Distention - Likely secondary to malignancy - CTAP- Ascites - Appreciate Heme/Onc consult - Consider Cytology analysis - Lasix 5. Lactic Acidosis - Likely secondary to malignancy - No leukocytosis, afebrile - No fluid resuscitation 2/2 HF 6. Stage 4 Metastatic Lung Ca - Continue chemo - appreciate Oncology consult - Consider Palliative Care consult 7. Afib - EKG- reviewed - [id number] 4 - Continue Eliquis - Continue Metoprolol, Cardizem with parameters 8. FEN - Fluid Restriction - Replete lyte prn - Low Na Diet 9. DVT ppx - OOB - SCDs - Continue Eliquis Dispo: Requires Inpatient Care Problem List - Problem (1) SOB (shortness of breath) Code(s): R06.02 - SHORTNESS OF BREATH (2) Pleural effusion Code(s): J90 - PLEURAL EFFUSION, NOT ELSEWHERE CLASSIFIED (3) Atrial fibrillation Code(s): I48.91 - UNSPECIFIED ATRIAL FIBRILLATION Qualifiers: Atrial fibrillation type: persistent Qualified Code(s): I48.1 - Persistent atrial fibrillation (4) Diastolic dysfunction Code(s): I51.9 - HEART DISEASE, UNSPECIFIED (5) HLD (hyperlipidemia) Code(s): E78.5 - HYPERLIPIDEMIA, UNSPECIFIED Qualifiers: Hyperlipidemia type: pure hypercholesterolemia Qualified Code(s): E78.00 - Pure hypercholesterolemia, unspecified; E78.0 - Pure hypercholesterolemia (6) Lung cancer Code(s): C34.90 - MALIGNANT NEOPLASM OF UNSP PART OF UNSP BRONCHUS OR LUNG (8) HTN (hypertension) Code(s): I10 - ESSENTIAL (PRIMARY) HYPERTENSION Qualifiers: Hypertension type: essential hypertension Qualified Code(s): I10 - Essential (primary) hypertension (9) DVT prophylaxis Code(s): PYQ0901 - Visit type - Emergency Visit Emergency Visit: Yes ED Registration Date: 03/17/18 Care time: The patient presented to the Emergency Department on the above date and was hospitalized for further evaluation of their emergent condition. - New Patient This patient is new to me today: Yes Date on this admission: 03/17/18 - Critical Care Critical Care patient: No Hospitalist Screening - Colonoscopy Questionnaire Colonoscopy Questionnaire: Colonoscopy Questionnaire - Patient: 50 - 75 years old and never had a screening colonoscopy: Unknown History of colon or rectal polyps, or CA: Unknown History of IBD, Crohn's disease or UC: Unknown History of abdominal radiation therapy as a child: Unknown - Relative: 1 with colon or rectal CA, or polyps at age 60 or younger: Unknown Colon or rectal CA diagnosed at age 45 or younger: Unknown Multiple relatives with colon or rectal CA: Unknown - Outcome: Screening Result: Negative Screen
[2018-03-17] MEDS ORDERED: METOPROLOL TARTRATE 50 MG TABLET (FP) ONE (23:39)
[2018-03-17] MEDS: APIXABAN 5 MG TABLET PO SCH (23:53)
[2018-03-17] MEDS: METOPROLOL TARTRATE 50 MG TABLET (FP) PO SCH (23:53)
[2018-03-18 00:52] VITALS: BMI 22.4
[2018-03-18 08:18] LABS: ANION GAP 8 (8-16); BLOOD UREA NITROGEN 20 mg/dL (7-18); CALCIUM 8.5 mg/dL (8.5-10.1); CHLORIDE 98 mmol/L (98-107); CO2 29 mmol/L (21-32); CREATININE 0.8 mg/dL (0.55-1.02); GLUCOSE,RANDOM 91 mg/dL (74-106); MAGNESIUM 1.7 mg/dL (1.8-2.4); PHOSPHOROUS 3.9 mg/dL (2.5-4.9); POTASSIUM 4.1 mmol/L (3.5-5.1); SODIUM 135 mmol/L (136-145)
[2018-03-18] MEDS ORDERED: PT OWN MED DRAWER 7, Y5N ONE (09:13)
[2018-03-18 09:33] LABS: BASO % 0.9 % (0-2.0); EOS % 1.9 % (0-4.5); HEMATOCRIT 41.1 % (32.4-45.2); HEMOGLOBIN 13.6 GM/dL (10.7-15.3); LYMPH % 5.4 % (8-40); MCH 34.4 pg (25.7-33.7); MEAN CELL VOLUME 103.9 fl (80-96); MEAN PLT VOLUME 7.3 fl (7.5-11.1); MONO % 15.1 % (3.8-10.2); NEUT % 76.7 % (42.8-82.8); PLATELET COUNT 451 K/MM3 (134-434); RBC 3.96 M/mm3 (3.60-5.2); RDW 18.8 % (11.6-15.6); WHITE BLOOD COUNT 8.2 K/mm3 (4.0-10.0)
[2018-03-18 09:41] LABS: MCHC 33.1 g/dl (32.0-36.0)
[2018-03-18] MEDS ORDERED: FUROSEMIDE 40 MG/4 ML INJECTABLE VIAL IVPUSH ONE (09:45)
[2018-03-18] MEDS: APIXABAN 5 MG TABLET PO SCH (10:20)
[2018-03-18] MEDS: FOLIC ACID 1 MG TABLET (FP) PO SCH (10:25)
[2018-03-18] MEDS: METOPROLOL TARTRATE 50 MG TABLET (FP) PO SCH ×2 (10:25→21:02)
--- NOTE | 2018-03-18 10:54 | CON.CARD ---
Consult Consult Specialty:: Cardiology Referred by:: Paul Beard MD Reason for Consultation:: Dyspnea - History of Present Illness Chief Complaint: Dyspnea History of Present Illness: Patient is a 72 year old female with h/o HTN/HCVD, diastolic dysfunction, persistent Afib on Eliquis, Stage IV Metastatic Lung Ca with recurrent malignant effusion post L VATS, pleural biopsy and pleurx placement(on chemo) presents with progressive dyspnea and orthopnea, abdominal distention, weakness and lower extremity edema. Patient's daughters report the patient having a drop in her O2- 80's. CTAP- Moderate right pleural effusion and lower lobe atelectasis, central left upper lobe mass, mediastinal lymphadenopathy, ascites , Compression fracture of L1 of uncertain chronicity. - History Source History Provided By: Patient Limitations to Obtaining History: No Limitations - Past Medical History Cardio/Vascular: Yes: AFIB, HTN, Hyperlipdemia Pulmonary: Yes: COPD. No: O2 Dependent ...: No - Past Surgical History Past Surgical History: Yes: Cholecystectomy - Alcohol/Substance Use Hx Alcohol Use: No History of Substance Use: reports: None - Smoking History Smoking history: Former smoker Have you smoked in the past 12 months: Yes Aproximately how many cigarettes per day: 20 If you are a former smoker, when did you quit?: 11/03/17 - Social History ADL: Independent Occupation: retired History of Recent Travel: Yes (to [place]) Home Medications - Allergies Allergies/Adverse Reactions: Allergies Allergy/AdvReac Type Severity Reaction Status Date / Time No Known Allergies Allergy Verified 03/17/18 16:58 - Home Medications Home Medications: Ambulatory Orders Apixaban [Eliquis] 5 mg PO BID 03/17/18 Diltiazem Cd [Cardizem Cd -] 180 mg PO DAILY 03/17/18 Folic Acid - 1 mg PO DAILY 03/17/18 Furosemide [Lasix] 20 mg PO DAILY 03/17/18 Metoprolol Tartrate [Lopressor] 50 mg PO BID 03/17/18 Omeprazole 20 mg PO DAILY 03/17/18 Pravastatin Sodium [Pravachol (Nf)] 20 mg PO HS 03/17/18 Docusate Sodium [Colace] 100 cap PO BID 03/18/18 Oxycodone HCl 5 mg PO QID PRN 03/18/18 Polyethylene Glycol 3350 [Miralax 119 gm Btl -] 17 grams PO DAILY 03/18/18 Family Disease History - Family Disease History Family Disease History: Heart Disease: Mother (CHF) Review of Systems - Review of Systems Cardiovascular: reports: Edema Respiratory: reports: Orthopnea, SOB Vital Signs: Vital Signs Temperature 97.8 F 03/18/18 09:00 Pulse Rate 94 H 03/18/18 09:00 Respiratory Rate 03/18/18 09:00 Blood Pressure 115/58 03/18/18 09:00 O2 Sat by Pulse Oximetry (%) 94 L 03/18/18 00:53 Constitutional: Yes: No Distress, Calm, Thin Neck: Yes: Supple Respiratory: Yes: Regular, Diminished, On Nasal O2 Gastrointestinal: Yes: Normal Bowel Sounds, Soft Cardiovascular: Yes: Pulse Irregular JVD: Yes Carotid Bruit: No Heart Sounds: Yes: S1, S2 Murmur: Yes: Systolic Murmur, Grade 2 Edema: Yes Edema: LLE: 1+, RLE: 1+ - Other Data Labs, Other Data: CBC, BMP 03/18/18 06:30 03/18/18 06:30 INR, PTT INR 2.53 (0.82-1.09) H D 03/17/18 17:34 Troponin, BNP 03/17/18 03/17/18 17:34 18:23 Troponin I < 0.02 B-Natriuretic Peptide 3563.42 H Troponin, BNP 03/17/18 03/17/18 17:34 18:23 Troponin I < 0.02 B-Natriuretic Peptide 3563.42 H Afib @ 100 PRWP Imaging - Results Chest X-ray: Report Reviewed (CHF and bilateral effusions worse since previous study) Cat Scan: Report Reviewed (CTAP- Moderate right pleural effusion and lower lobe atelectasis, central left upper lobe mass, mediastinal lymphadenopathy, ascites , Compression fracture of L1 of uncertain chronicity.) Problem List - Problems (1) Acute on chronic diastolic (congestive) heart failure Code(s): I50.33 - ACUTE ON CHRONIC DIASTOLIC (CONGESTIVE) HEART FAILURE (2) Severe tricuspid regurgitation by prior echocardiogram Code(s): I07.1 - RHEUMATIC TRICUSPID INSUFFICIENCY (3) Pleural effusion Code(s): J90 - PLEURAL EFFUSION, NOT ELSEWHERE CLASSIFIED (4) SOB (shortness of breath) Code(s): R06.02 - SHORTNESS OF BREATH (5) Atrial fibrillation Code(s): I48.91 - UNSPECIFIED ATRIAL FIBRILLATION Qualifiers: Atrial fibrillation type: persistent Qualified Code(s): I48.1 - Persistent atrial fibrillation (6) Cerebrovascular disease Code(s): I67.9 - CEREBROVASCULAR DISEASE, UNSPECIFIED (7) HLD (hyperlipidemia) Code(s): E78.5 - HYPERLIPIDEMIA, UNSPECIFIED Qualifiers: Hyperlipidemia type: pure hypercholesterolemia Qualified Code(s): E78.00 - Pure hypercholesterolemia, unspecified; E78.0 - Pure hypercholesterolemia (8) Lung cancer Code(s): C34.90 - MALIGNANT NEOPLASM OF UNSP PART OF UNSP BRONCHUS OR LUNG (9) HTN (hypertension) Code(s): I10 - ESSENTIAL (PRIMARY) HYPERTENSION Qualifiers: Hypertension type: essential hypertension Qualified Code(s): I10 - Essential (primary) hypertension Assessment/Plan 02/20/2016 Normal LV size and fxn, borderline TRACIE, severe TR, mild MR RVSP 40-50 mmHg MRI from 11/26/17 which demonstrated 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 1. Acute on chronic diastolic failure with underlying severe TR and right pleural effusion r/o malignancy 2. H/o recurrent left pleural effusion with pleural Nodules/suprahilar lung mass s/p L VATS/pleural biopsy/pleur-x placement since removed 3. HTN/HCVD 4. Persistent Afib off Eliquis pre-diagnostic thoracentesis 5. Hyperlipidemia 6. Cerebrovascular disease PLAN: 1. IV diuresis with monitor diuretic response, renal function and electrolytes 2. Hold Eliquis 5 bid prior to right thoracentesis 3. Continue Cardizem CD 180 qd, Lopressor 50 bid and Pravachol 20 qhs 4. Repeat echocardiogram to assess ventricular and valve fxn 5. DVT and GI prophylaxis, analgesia as needed 6. Thank you for consultative opportunity
--- NOTE | 2018-03-18 11:14 | CON.PULM ---
Consult Consult Specialty:: PULMONARY Referred by:: Dr. Murillo Reason for Consultation:: shortness of breath - History of Present Illness Chief Complaint: shortness of breath History of Present Illness: 72yo female with h/o metastatic lung cancer, atrial fibrillation, left sided pleur-x catheter now removed who was sent by her oncologist for worsening shorntess of breath. No chest pain or palpitations. No significant cough or wheezing but reports increasing leg swelling. No orthopnea or PND. No fevers, chills or sweats. She takes lasix three times a week. Some nausea without vomiting. Did not respond to chemotherapy, now on Opdivo. - History Source History Provided By: Patient, Family Member, Medical Record Limitations to Obtaining History: No Limitations - Past Medical History Cardio/Vascular: Yes: AFIB, HTN, Hyperlipdemia Pulmonary: Yes: COPD. No: O2 Dependent ...: No - Past Surgical History Past Surgical History: Yes: Cholecystectomy - Alcohol/Substance Use Hx Alcohol Use: No History of Substance Use: reports: None - Smoking History Smoking history: Former smoker Have you smoked in the past 12 months: Yes Aproximately how many cigarettes per day: 20 If you are a former smoker, when did you quit?: 11/03/17 - Social History ADL: Independent Occupation: retired History of Recent Travel: Yes (to [place]) Home Medications - Allergies Allergies/Adverse Reactions: Allergies Allergy/AdvReac Type Severity Reaction Status Date / Time No Known Allergies Allergy Verified 03/17/18 16:58 - Home Medications Home Medications: Ambulatory Orders Apixaban [Eliquis] 5 mg PO BID 03/17/18 Diltiazem Cd [Cardizem Cd -] 180 mg PO DAILY 03/17/18 Folic Acid - 1 mg PO DAILY 03/17/18 Furosemide [Lasix] 20 mg PO DAILY 03/17/18 Metoprolol Tartrate [Lopressor] 50 mg PO BID 03/17/18 Omeprazole 20 mg PO DAILY 03/17/18 Pravastatin Sodium [Pravachol (Nf)] 20 mg PO HS 03/17/18 Docusate Sodium [Colace] 100 cap PO BID 03/18/18 Oxycodone HCl 5 mg PO QID PRN 03/18/18 Polyethylene Glycol 3350 [Miralax 119 gm Btl -] 17 grams PO DAILY 03/18/18 Family Disease History - Family Disease History Family Disease History: Heart Disease: Mother (CHF) Review of Systems - Review of Systems Constitutional: reports: Weakness. denies: Chills, Fever Eyes: denies: Recent Change in Vision HENT: denies: Nasal Congestion, Throat Pain Neck: denies: Stiffness, Tenderness Cardiovascular: reports: Edema, Shortness of Breath. denies: Chest Pain, Palpitations Respiratory: reports: SOB, SOB on Exertion. denies: Cough, Hemoptysis, Wheezing Gastrointestinal: reports: Abdominal Pain, Nausea. denies: Vomiting Genitourinary: denies: Dysuria, Hematuria Neurological: denies: Dizziness, Headache Endocrine: denies: Unexplained Weight Gain, Unexplained Weight Loss Physical Exam Vital Sings: Vital Signs Temperature 97.8 F 03/18/18 09:00 Pulse Rate 94 H 03/18/18 09:00 Respiratory Rate 03/18/18 09:00 Blood Pressure 115/58 03/18/18 09:00 O2 Sat by Pulse Oximetry (%) 94 L 03/18/18 00:53 Constitutional: Yes: Calm Eyes: Yes: Conjunctiva Clear, EOM Intact HENT: Yes: Atraumatic, Normocephalic Neck: Yes: Supple, Trachea Midline Cardiovascular: Yes: Regular Rate and Rhythm Respiratory: Yes: Diminished (decreased breath sounds at the bases) ...Clubbing: No Gastrointestinal: Yes: Normal Bowel Sounds, Soft. No: Tenderness Edema: Yes Labs: CBC, BMP 03/18/18 06:30 03/18/18 06:30 Imaging - Results Chest X-ray: Report Reviewed, Image Reviewed Cat Scan: Report Reviewed, Image Reviewed (right sided effusion with atelectasis , PETTY mass) Assessment/Plan Suspect decompensated CHF Metastatic NSCLC (Adenocarcinoma) Right Pleural Effusion Atrial Fibrillation Pulmonary HTN Hypercholesterolemia - IV lasix - monitor urine output, creatinine - echocardiogram - will order right sided thoracentesis to r/o malignant involvement - hold eliquis prior to thoracentesis - rate control - O2 to keep SpO2 >90% Thank you for this consult Brendan Wheeler MD
--- NOTE | 2018-03-18 11:23 | EKG ---
Test Reason : Blood Pressure : / mmHG Vent. Rate : 100 BPM Atrial Rate : 108 BPM P-R Int : 000 ms QRS Dur : 082 ms QT Int : 334 ms P-R-T Axes : 000 027 190 degrees QTc Int : 430 ms ATRIAL FIBRILLATION LOW VOLTAGE QRS CANNOT RULE OUT ANTEROSEPTAL INFARCT (CITED ON OR BEFORE 19-FEB-2016) ABNORMAL ECG WHEN COMPARED WITH ECG OF 02-DEC-2017 13:39, NO SIGNIFICANT CHANGE WAS FOUND Confirmed by RAHUL GONZALEZ MD ([id number]) on 03/18/2018 11:23:16 AM Referred By: Confirmed By:RAHUL GONZALEZ MD
[2018-03-18 12:02] LABS: N-TERMINAL BNP 2438.21 pg/ml (5-125)
[2018-03-18] MEDS ORDERED: MAGNESIUM OXIDE 400 MG TABLET (FP) PO ONE (12:12)
--- NOTE | 2018-03-18 12:34 | PN ---
Progress Note, Physician Chief Complaint: Pt lying in bed, reports sob, on O2 via NC. Denies any chest pain, n/v/d, or unilateral weakness. - Current Medication List Current Medications: Active Medications Atorvastatin Calcium (Lipitor -) 10 mg PO HS [facility] Diltiazem HCl (Cardizem Cd -) 180 mg PO DAILY [facility] Last Admin: 03/18/18 10:25 Dose: 180 mg Folic Acid (Folic Acid -) 1 mg PO DAILY [facility] Last Admin: 03/18/18 10:25 Dose: 1 mg Furosemide (Lasix Injection -) 40 mg IVPUSH BID@0600,1400 [facility] Lidocaine (Lidoderm Patch -) 1 patch TP DAILY [facility] Metoprolol Tartrate (Lopressor -) 50 mg PO BID [facility] Last Admin: 03/18/18 10:25 Dose: 50 mg Miscellaneous (Lidoderm Patch Removal) 1 each MC DAILY@2200 [facility] Oxycodone HCl (Roxicodone -) 5 mg PO Q6H PRN PRN Reason: PAIN LEVEL 6-10 - Objective Vital Signs: Vital Signs Temperature 97.8 F 03/18/18 09:00 Pulse Rate 94 H 03/18/18 09:00 Respiratory Rate 03/18/18 09:00 Blood Pressure 115/58 03/18/18 09:00 O2 Sat by Pulse Oximetry (%) 94 L 03/18/18 00:53 Constitutional: Yes: Well Nourished, No Distress, Calm Cardiovascular: Yes: Pulse Irregular. No: Tachycardia, Gallop, Rub Respiratory: Yes: Regular, Diminished, On Nasal O2, Rales, SOB Gastrointestinal: Yes: WNL, Normal Bowel Sounds. No: Distention, Tenderness Genitourinary: Yes: WNL Edema: Yes Edema: LLE: 2+, RLE: 1+ Neurological: Yes: WNL, Alert, Oriented Psychiatric: Yes: WNL, Alert, Oriented Labs: CBC, BMP 03/18/18 06:30 03/18/18 06:30 INR, PTT INR 2.53 (0.82-1.09) H D 03/17/18 17:34 Problem List - Problems (1) Metastatic lung cancer (metastasis from lung to other site) Assessment/Plan: PETTY mass, right sided effusion with atelectasis on immunotherapy outpt oncology oncology following Code(s): C34.90 - MALIGNANT NEOPLASM OF UNSP PART OF UNSP BRONCHUS OR LUNG Qualifiers: Laterality: left Qualified Code(s): C34.92 - Malignant neoplasm of unspecified part of left bronchus or lung (2) Pleural effusion Assessment/Plan: previous hx of left pleural effusion now w/ right sided effusion r/o malignant eff thorcentesis ordered AC on hold will monitor Code(s): J90 - PLEURAL EFFUSION, NOT ELSEWHERE CLASSIFIED (3) SOB (shortness of breath) Assessment/Plan: as above O2 Code(s): R06.02 - SHORTNESS OF BREATH (4) Atrial fibrillation Assessment/Plan: rate controlled continue cardizem/bb eliquis on hold for thoracentesis Code(s): I48.91 - UNSPECIFIED ATRIAL FIBRILLATION Qualifiers: Atrial fibrillation type: persistent Qualified Code(s): I48.1 - Persistent atrial fibrillation (5) HLD (hyperlipidemia) Assessment/Plan: chronic continue statin Code(s): E78.5 - HYPERLIPIDEMIA, UNSPECIFIED Qualifiers: Hyperlipidemia type: pure hypercholesterolemia Qualified Code(s): E78.00 - Pure hypercholesterolemia, unspecified; E78.0 - Pure hypercholesterolemia (6) HTN (hypertension) Assessment/Plan: controlled continue current management Code(s): I10 - ESSENTIAL (PRIMARY) HYPERTENSION Qualifiers: Hypertension type: essential hypertension Qualified Code(s): I10 - Essential (primary) hypertension (7) CHF (congestive heart failure) Assessment/Plan: acute on chronic, diastolic continue diuresis per cardiology daily weights cardiology following Code(s): I50.9 - HEART FAILURE, UNSPECIFIED Qualifiers: Heart failure type: diastolic Heart failure chronicity: acute on chronic Qualified Code(s): I50.33 - Acute on chronic diastolic (congestive) heart failure
[2018-03-18] MEDS: LIDOCAINE 5% TOPICAL PATCH TP SCH (12:50)
--- NOTE | 2018-03-18 13:54 | PN ---
Progress Note (short form) - Note Progress Note: P Pt seen and examined. feels about the same as yesterday. continues to have difficulty breathing.Is also hypoxic. o/E: GENERAL: MILD DISTRESS, on O2 HEENT: NCAT Lungs: Decreased breath sounds Cor: Tachy abd: distended LE:no edmea Neuro: AAXO3. able to lift both legs against gravity Last Vital Signs Temp Pulse Resp BP Pulse Ox 97.7 F 100 H 20 106/73 94 L 03/18/18 13:30 03/18/18 13:30 03/18/18 13:30 03/18/18 13:30 03/18/18 00:53 CBC, BMP 03/18/18 06:30 03/18/18 06:30 Current Medications Generic Name Dose Route Start Last Admin Trade Name Freq PRN Reason Stop Dose Admin Atorvastatin Calcium 10 mg 03/18/18 22:00 Lipitor - PO HS MANDIE Diltiazem HCl 180 mg 03/18/18 10:00 03/18/18 10:25 Cardizem Cd - PO 180 mg DAILY MANDIE Administration Folic Acid 1 mg 03/18/18 10:00 03/18/18 10:25 Folic Acid - PO 1 mg DAILY MANDIE Administration Furosemide 40 mg 03/18/18 14:00 Lasix Injection - IVPUSH BID@0600,1400 [facility] Lidocaine 1 patch 03/18/18 11:45 03/18/18 12:50 Lidoderm Patch - TP 1 patch DAILY MANDIE Administration Metoprolol Tartrate 50 mg 03/17/18 23:45 03/18/18 10:25 Lopressor - PO 50 mg BID MANDIE Administration Miscellaneous 1 each 03/18/18 22:00 Lidoderm Patch Removal MC DAILY@2200 MANDIE Oxycodone HCl 5 mg 03/18/18 11:43 Roxicodone - PO Q6H PRN PAIN LEVEL 6-10 CT noted for thoracentesis r/o malignant etiology, supplemental oxygen for MRI spine Afib on eliquis, on hold fr the procedure.
[2018-03-18] MEDS: FUROSEMIDE 40 MG/4 ML INJECTABLE VIAL IVPUSH SCH (14:45)
[2018-03-18] MEDS: PANTOPRAZOLE 40 MG TABLET (FP) PO SCH (17:27)
[2018-03-18] MEDS: LIDOCAINE PATCH REMOVAL MC SCH (21:01)
[2018-03-18] MEDS: ATORVASTATIN CA 10 MG TABLET (FP) PO SCH (21:02)
[2018-03-18] MEDS: oxyCODONE HCL 5 MG TABLET PO PRN (23:50)
[2018-03-19] MEDS: FUROSEMIDE 40 MG/4 ML INJECTABLE VIAL IVPUSH SCH ×2 (05:35→13:42)
[2018-03-19] MEDS: oxyCODONE HCL 5 MG TABLET PO PRN (07:59)
[2018-03-19] MEDS ORDERED: oxyCODONE HCL 5 MG TABLET PO ONE (09:15)
[2018-03-19] MEDS ORDERED: FUROSEMIDE 40 MG/4 ML INJECTABLE VIAL IVPUSH SCH (10:00)
[2018-03-19] MEDS: METOPROLOL TARTRATE 50 MG TABLET (FP) PO SCH ×2 (10:27→21:45)
[2018-03-19] MEDS: FOLIC ACID 1 MG TABLET (FP) PO SCH (10:39)
[2018-03-19] MEDS: PANTOPRAZOLE 40 MG TABLET (FP) PO SCH (10:39)
--- NOTE | 2018-03-19 11:10 | PN ---
Progress Note (short form) - Note Progress Note: PULMONARY UNABLE TO TOLERATE THORACENTESIS DUE TO PAIN/ FAMILY PRESENT VSS/AFEBRILE PALE/CHRONICALLY ILL IN APPEARANCE ANICTERIC DIMINISHED BREATH SOUNDS RIGHT BASE UP 1/3 LUNG FIELD DECREASED BREATH SOUNDS ON LEFT S1S2 IRREG BS+ NO EDEMA LABS/MEDS/NOTES/IMAGES REVIEWED Suspect decompensated CHF Metastatic NSCLC (Adenocarcinoma) Right Pleural Effusion Atrial Fibrillation Pulmonary HTN Hypercholesterolemia - IV lasix - monitor urine output, creatinine - echocardiogram - re-attempt right sided thoracentesis to r/o malignant involvement (later today) - hold eliquis prior to thoracentesis - rate control - O2 to keep SpO2 >90% Gaurang BARBOUR MD
--- NOTE | 2018-03-19 12:09 | PN ---
Progress Note, Physician History of Present Illness: Dyspnea and orthopnea, abdominal distention, weakness and lower extremity edema slowly improving with diuresis. - Current Medication List Current Medications: Active Medications Atorvastatin Calcium (Lipitor -) 10 mg PO HS [facility] Last Admin: 03/18/18 21:02 Dose: 10 mg Diltiazem HCl (Cardizem Cd -) 180 mg PO DAILY [facility] Last Admin: 03/18/18 10:25 Dose: 180 mg Folic Acid (Folic Acid -) 1 mg PO DAILY [facility] Last Admin: 03/19/18 10:39 Dose: Not Given Furosemide (Lasix Injection -) 40 mg IVPUSH BID@0600,1400 [facility] Last Admin: 03/19/18 05:35 Dose: 40 mg Lidocaine (Lidoderm Patch -) 1 patch TP DAILY [facility] Last Admin: 03/18/18 12:50 Dose: 1 patch Metoprolol Tartrate (Lopressor -) 50 mg PO BID [facility] Last Admin: 03/19/18 10:27 Dose: 50 mg Miscellaneous (Lidoderm Patch Removal) 1 each MC DAILY@2200 [facility] Last Admin: 03/18/18 21:01 Dose: 1 each Oxycodone HCl (Roxicodone -) 5 mg PO Q6H PRN PRN Reason: PAIN LEVEL 6-10 Last Admin: 03/19/18 07:59 Dose: 5 mg Pantoprazole Sodium (Protonix -) 40 mg PO DAILY [facility] Last Admin: 03/19/18 10:39 Dose: Not Given - Objective Vital Signs: Vital Signs Temperature 98.1 F 03/19/18 05:34 Pulse Rate 97 H 03/19/18 05:34 Respiratory Rate 20 03/19/18 05:34 Blood Pressure 99/64 03/19/18 05:34 O2 Sat by Pulse Oximetry (%) 95 03/18/18 20:58 Constitutional: Yes: No Distress, Calm, Thin Neck: Yes: Supple Cardiovascular: Yes: Tachycardia, Pulse Irregular Respiratory: Yes: Regular, Diminished, On Nasal O2 Gastrointestinal: Yes: Normal Bowel Sounds, Soft Edema: No Labs: CBC, BMP 03/19/18 06:30 03/19/18 06:30 INR, PTT INR 2.53 (0.82-1.09) H D 03/17/18 17:34 Problem List - Problems (1) Acute on chronic diastolic (congestive) heart failure Code(s): I50.33 - ACUTE ON CHRONIC DIASTOLIC (CONGESTIVE) HEART FAILURE (2) Severe tricuspid regurgitation by prior echocardiogram Code(s): I07.1 - RHEUMATIC TRICUSPID INSUFFICIENCY (3) Pleural effusion Code(s): J90 - PLEURAL EFFUSION, NOT ELSEWHERE CLASSIFIED (4) SOB (shortness of breath) Code(s): R06.02 - SHORTNESS OF BREATH (5) Atrial fibrillation Code(s): I48.91 - UNSPECIFIED ATRIAL FIBRILLATION Qualifiers: Atrial fibrillation type: persistent Qualified Code(s): I48.1 - Persistent atrial fibrillation (6) Cerebrovascular disease Code(s): I67.9 - CEREBROVASCULAR DISEASE, UNSPECIFIED (7) HLD (hyperlipidemia) Code(s): E78.5 - HYPERLIPIDEMIA, UNSPECIFIED Qualifiers: Hyperlipidemia type: pure hypercholesterolemia Qualified Code(s): E78.00 - Pure hypercholesterolemia, unspecified; E78.0 - Pure hypercholesterolemia (8) Lung cancer Code(s): C34.90 - MALIGNANT NEOPLASM OF UNSP PART OF UNSP BRONCHUS OR LUNG (9) HTN (hypertension) Code(s): I10 - ESSENTIAL (PRIMARY) HYPERTENSION Qualifiers: Hypertension type: essential hypertension Qualified Code(s): I10 - Essential (primary) hypertension Assessment/Plan 03/18/2018 Echo: Normal biventricular size and fxn, severe CHAS, mod TR, mild MR , pleural effusion 02/20/2016 Normal LV size and fxn, borderline TRACIE, severe TR, mild MR RVSP 40-50 mmHg MRI from 11/26/17 which demonstrated 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 1. Acute on chronic diastolic failure with underlying severe TR and right pleural effusion r/o malignancy 2. H/o recurrent left pleural effusion with pleural Nodules/suprahilar lung mass s/p L VATS/pleural biopsy/pleur-x placement since removed 3. HTN/HCVD 4. Persistent Afib off Eliquis pre-diagnostic thoracentesis 5. Hyperlipidemia 6. Cerebrovascular disease PLAN: 1. IV diuresis with monitor diuretic response, renal function and electrolytes 2. Hold Eliquis 5 bid prior to right thoracentesis 3. Continue Cardizem CD 180 qd, Lopressor 50 bid and Lipitor 10 qhs 4. DVT and GI prophylaxis, analgesia as needed 5. Await right thoracentesis
[2018-03-19] MEDS: LIDOCAINE 5% TOPICAL PATCH TP SCH (12:11)
--- NOTE | 2018-03-19 12:25 | PN ---
Progress Note, Physician Chief Complaint: Ms Nelson is having back pain from the MRI. No cp or n/v. SOB controlled - Current Medication List Current Medications: Active Medications Atorvastatin Calcium (Lipitor -) 10 mg PO HS [facility] Last Admin: 03/18/18 21:02 Dose: 10 mg Diltiazem HCl (Cardizem Cd -) 180 mg PO DAILY [facility] Last Admin: 03/19/18 12:11 Dose: 180 mg Docusate Sodium (Colace -) 100 mg PO TID [facility] Enoxaparin Sodium (Lovenox -) 60 mg SQ Q12H [facility] Stop: 03/21/18 22:00 Folic Acid (Folic Acid -) 1 mg PO DAILY [facility] Last Admin: 03/19/18 10:39 Dose: Not Given Furosemide (Lasix Injection -) 40 mg IVPUSH BID@0600,1400 [facility] Last Admin: 03/19/18 05:35 Dose: 40 mg Lidocaine (Lidoderm Patch -) 1 patch TP DAILY [facility] Last Admin: 03/19/18 12:11 Dose: 1 patch Metoprolol Tartrate (Lopressor -) 50 mg PO BID [facility] Last Admin: 03/19/18 10:27 Dose: 50 mg Miscellaneous (Lidoderm Patch Removal) 1 each MC DAILY@2200 [facility] Last Admin: 03/18/18 21:01 Dose: 1 each Oxycodone HCl (Roxicodone -) 5 mg PO Q6H PRN PRN Reason: PAIN LEVEL 6-10 Pantoprazole Sodium (Protonix -) 40 mg PO DAILY [facility] Last Admin: 03/19/18 10:39 Dose: Not Given Polyethylene Glycol (Miralax (For Daily Use) -) 17 gm PO BID [facility] - Objective Vital Signs: Vital Signs Temperature 36.7 C 03/19/18 05:34 Pulse Rate 97 H 03/19/18 05:34 Respiratory Rate 20 03/19/18 05:34 Blood Pressure 99/64 03/19/18 05:34 O2 Sat by Pulse Oximetry (%) 95 03/18/18 20:58 Constitutional: Yes: No Distress, Calm, Thin Cardiovascular: Yes: Regular Rate and Rhythm. No: Gallop, Murmur, Rub Respiratory: Yes: Regular, On Nasal O2, Rhonchi (RLL). No: CTA Bilaterally, Rales, Wheezes Gastrointestinal: Yes: Normal Bowel Sounds, Soft. No: Distention, Tenderness Extremities: Yes: WNL Edema: No Labs: INR, PTT INR 2.53 (0.82-1.09) H D 03/17/18 17:34 Assessment/Plan (1) Metastatic lung cancer (metastasis from lung to other site) Assessment/Plan: -concern for malignant R sided pleural effusion -oncology following -plan for thoracentesis Code(s): C34.90 - MALIGNANT NEOPLASM OF UNSP PART OF UNSP BRONCHUS OR LUNG Qualifiers: Laterality: left Qualified Code(s): C34.92 - Malignant neoplasm of unspecified part of left bronchus or lung (2) Pleural effusion Assessment/Plan -needs to be off eliquis for 72 hours per IR -start on lovenox, hold after last dose on Thursday -plan for thoracentesis on Thursday Code(s): J90 - PLEURAL EFFUSION, NOT ELSEWHERE CLASSIFIED (3) SOB (shortness of breath) Assessment/Plan: -controlled -continue O2 Code(s): R06.02 - SHORTNESS OF BREATH (4) Atrial fibrillation Assessment/Plan: -rate controlled Code(s): I48.91 - UNSPECIFIED ATRIAL FIBRILLATION Qualifiers: Atrial fibrillation type: persistent Qualified Code(s): I48.1 - Persistent atrial fibrillation (5) HLD (hyperlipidemia) Assessment/Plan: -continue statin Code(s): E78.5 - HYPERLIPIDEMIA, UNSPECIFIED Qualifiers: Hyperlipidemia type: pure hypercholesterolemia Qualified Code(s): E78.00 - Pure hypercholesterolemia, unspecified; E78.0 - Pure hypercholesterolemia (6) HTN (hypertension) Assessment/Plan: -continue current management Code(s): I10 - ESSENTIAL (PRIMARY) HYPERTENSION Qualifiers: Hypertension type: essential hypertension Qualified Code(s): I10 - Essential (primary) hypertension (7) CHF (congestive heart failure) Assessment/Plan -cardiology following -continue IV lasix Code(s): I50.9 - HEART FAILURE, UNSPECIFIED Qualifiers: Heart failure type: diastolic Heart failure chronicity: acute on chronic Qualified Code(s): I50.33 - Acute on chronic diastolic (congestive) heart failure
[2018-03-19 12:30] LABS: ALBUMIN 2.6 g/dl (3.4-5.0); ANION GAP 11 (8-16); BLOOD UREA NITROGEN 19 mg/dL (7-18); CALCIUM 8.3 mg/dL (8.5-10.1); CHLORIDE 97 mmol/L (98-107); CO2 31 mmol/L (21-32); GLUCOSE,RANDOM 96 mg/dL (74-106); MAGNESIUM 1.7 mg/dL (1.8-2.4); POTASSIUM 3.2 mmol/L (3.5-5.1); SODIUM 139 mmol/L (136-145)
[2018-03-19 12:34] LABS: HEMATOCRIT 41.6 % (32.4-45.2); HEMOGLOBIN 14.2 GM/dL (10.7-15.3); MCH 36.3 pg (25.7-33.7); MCHC 34.2 g/dl (32.0-36.0); MEAN CELL VOLUME 105.9 fl (80-96); MEAN PLT VOLUME 7.3 fl (7.5-11.1); PLATELET COUNT 396 K/MM3 (134-434); RBC 3.92 M/mm3 (3.60-5.2); RDW 17.9 % (11.6-15.6); WHITE BLOOD COUNT 6.9 K/mm3 (4.0-10.0)
[2018-03-19 12:35] LABS: BILIRUBIN,TOTAL 1.3 mg/dL (0.2-1.0); CREATININE 0.7 mg/dL (0.55-1.02); PHOSPHOROUS 3.1 mg/dL (2.5-4.9); SGOT/AST 25 U/L (15-37); SGPT/ALT 24 U/L (12-78); TOT PROT 5.9 g/dl (6.4-8.2)
[2018-03-19 12:36] LABS: ALK PHOS 164 U/L (45-117)
[2018-03-19] MEDS: DOCUSATE SODIUM 100 MG CAPSULE (FP) PO SCH ×2 (13:42→21:43)
[2018-03-19] MEDS: ENOXAPARIN NA (PORCINE) 60 MG/0.6 ML DISP.SYRIN SQ SCH (13:42)
[2018-03-19] MEDS: POLYETHYLENE GLYCOL 3350 119 GM BTL PO SCH ×2 (16:45→21:50)
[2018-03-19] MEDS ORDERED: POTASSIUM CHLORIDE TABS 20 MEQ TABLET.ER (FP) PO ONE ×2 (20:15→22:00)
--- NOTE | 2018-03-19 20:41 | PN ---
Progress Note (short form) - Note Progress Note: Patient seen and examined Feels better Last Vital Signs Temp Pulse Resp BP Pulse Ox 97.8 F 98 H 20 95/73 95 03/19/18 17:07 03/19/18 17:07 03/19/18 17:07 03/19/18 17:07 03/19/18 09:00 Cor: RSR, No murmurs, No gallops Lungs: Clear to P&A Abd: Soft, Normal bowel sounds, No organomegaly Ext:No significant edema Abnormal Lab Results 03/19/18 03/19/18 11:25 11:25 MCV 105.9 H MCH 36.3 H RDW 17.9 H MPV 7.3 L Potassium 3.2 L Chloride 97 L BUN 19 H Calcium 8.3 L Magnesium 1.7 L Total Bilirubin 1.3 H Alkaline Phosphatase 164 H Total Protein 5.9 L Albumin 2.6 L Active Medications Atorvastatin Calcium (Lipitor -) 10 mg PO HS [facility] Last Admin: 03/18/18 21:02 Dose: 10 mg Diltiazem HCl (Cardizem Cd -) 180 mg PO DAILY [facility] Last Admin: 03/19/18 12:11 Dose: 180 mg Docusate Sodium (Colace -) 100 mg PO TID [facility] Last Admin: 03/19/18 13:42 Dose: 100 mg Enoxaparin Sodium (Lovenox -) 60 mg SQ Q12H [facility] Stop: 03/21/18 22:00 Last Admin: 03/19/18 13:42 Dose: 60 mg Folic Acid (Folic Acid -) 1 mg PO DAILY [facility] Last Admin: 03/19/18 10:39 Dose: Not Given Furosemide (Lasix Injection -) 40 mg IVPUSH BID@0600,1400 [facility] Last Admin: 03/19/18 13:42 Dose: 40 mg Lidocaine (Lidoderm Patch -) 1 patch TP DAILY [facility] Last Admin: 03/19/18 12:11 Dose: 1 patch Metoprolol Tartrate (Lopressor -) 50 mg PO BID [facility] Last Admin: 03/19/18 10:27 Dose: 50 mg Miscellaneous (Lidoderm Patch Removal) 1 each MC DAILY@2200 [facility] Last Admin: 03/18/18 21:01 Dose: 1 each Morphine Sulfate (Morphine Sulfate) 1 mg IVPUSH Q4H PRN PRN Reason: PAIN LEVEL 9-10 Oxycodone HCl (Roxicodone -) 5 mg PO Q6H PRN PRN Reason: PAIN LEVEL 6-8 Pantoprazole Sodium (Protonix -) 40 mg PO DAILY [facility] Last Admin: 03/19/18 10:39 Dose: Not Given Polyethylene Glycol (Miralax (For Daily Use) -) 17 gm PO BID [facility] Last Admin: 03/19/18 16:45 Dose: 17 gm A/P 72 y/ o patient with metastatic adenocarinoma of lung s/p carbo/alimta with progression of disease. Now on novolumab, 2nd line Admitted with worsening effusions, edema, ascites ? decompensated CHF ? malignant effusion IV diuresis For thoracentesis
[2018-03-19] MEDS: ATORVASTATIN CA 10 MG TABLET (FP) PO SCH (21:43)
[2018-03-19] MEDS: LIDOCAINE PATCH REMOVAL MC SCH (21:43)
[2018-03-19] MEDS ORDERED: PT OWN MED DRAWER 7, Y5N ONE (23:40)
[2018-03-20] MEDS: ENOXAPARIN NA (PORCINE) 60 MG/0.6 ML DISP.SYRIN SQ SCH ×2 (00:09→14:07)
[2018-03-20] MEDS: oxyCODONE HCL 5 MG TABLET PO PRN ×2 (00:09→21:47)
[2018-03-20] MEDS: FUROSEMIDE 40 MG/4 ML INJECTABLE VIAL IVPUSH SCH ×2 (06:02→14:06)
[2018-03-20] MEDS: DOCUSATE SODIUM 100 MG CAPSULE (FP) PO SCH ×3 (06:02→21:46)
[2018-03-20 07:14] LABS: BASO % 1.2 % (0-2.0); EOS % 0.4 % (0-4.5); HEMATOCRIT 39.4 % (32.4-45.2); HEMOGLOBIN 13.7 GM/dL (10.7-15.3); MCH 38.2 pg (25.7-33.7); MCHC 34.8 g/dl (32.0-36.0); MEAN CELL VOLUME 109.7 fl (80-96); MEAN PLT VOLUME 7.3 fl (7.5-11.1); MONO % 10.2 % (3.8-10.2); NEUT % 85.2 % (42.8-82.8); PLATELET COUNT 365 K/MM3 (134-434); RBC 3.59 M/mm3 (3.60-5.2); RDW 18.2 % (11.6-15.6); WHITE BLOOD COUNT 7.7 K/mm3 (4.0-10.0)
[2018-03-20 08:01] LABS: ANION GAP 7 (8-16); BLOOD UREA NITROGEN 18 mg/dL (7-18); CALCIUM 8.1 mg/dL (8.5-10.1); CHLORIDE 98 mmol/L (98-107); CO2 34 mmol/L (21-32); GLUCOSE,RANDOM 91 mg/dL (74-106); MAGNESIUM 1.4 mg/dL (1.8-2.4); POTASSIUM 3.6 mmol/L (3.5-5.1); SODIUM 139 mmol/L (136-145)
[2018-03-20 08:03] LABS: CREATININE 0.7 mg/dL (0.55-1.02)
--- NOTE | 2018-03-20 10:09 | PN ---
Progress Note (short form) - Note Progress Note: PULMONARY UNABLE TO TOLERATE THORACENTESIS YESTERDAY DUE TO PAIN/ LYING COMFORTABLY THIS MORNING VSS/AFEBRILE PALE/CHRONICALLY ILL IN APPEARANCE ANICTERIC DIMINISHED BREATH SOUNDS RIGHT BASE UP 1/3 LUNG FIELD DECREASED BREATH SOUNDS ON LEFT S1S2 IRREG BS+ NO EDEMA LABS/MEDS/NOTES/IMAGES REVIEWED Suspect decompensated CHF Metastatic NSCLC (Adenocarcinoma) Right Pleural Effusion Atrial Fibrillation Pulmonary HTN Hypercholesterolemia - IV lasix - monitor urine output, creatinine - re-attempt right sided thoracentesis to r/o malignant involvement if patient permits - hold eliquis prior to thoracentesis - rate control - O2 to keep SpO2 >90% Gaurang BARBOUR MD
[2018-03-20] MEDS: FOLIC ACID 1 MG TABLET (FP) PO SCH (11:03)
[2018-03-20] MEDS: PANTOPRAZOLE 40 MG TABLET (FP) PO SCH (11:03)
[2018-03-20] MEDS: LIDOCAINE 5% TOPICAL PATCH TP SCH (11:04)
[2018-03-20] MEDS: POLYETHYLENE GLYCOL 3350 119 GM BTL PO SCH ×2 (11:05→21:54)
[2018-03-20] MEDS: METOPROLOL TARTRATE 50 MG TABLET (FP) PO SCH ×2 (11:11→21:47)
--- NOTE | 2018-03-20 11:15 | PN ---
Progress Note, Physician Chief Complaint: c/O Pain couldnt tolerate thoracocentesis History of Present Illness: 72 y/o woman with a PMH Stage IV Metastatic Lung Ca (on chemo), Afib . Who presents to the ED with her daughters for progressively SOB and Hypoxia with Rt sided pleural effusion. - Current Medication List Current Medications: Active Medications Atorvastatin Calcium (Lipitor -) 10 mg PO HS [facility] Last Admin: 03/19/18 21:43 Dose: 10 mg Diltiazem HCl (Cardizem Cd -) 180 mg PO DAILY [facility] Last Admin: 03/19/18 12:11 Dose: 180 mg Docusate Sodium (Colace -) 100 mg PO TID [facility] Last Admin: 03/20/18 06:02 Dose: 100 mg Enoxaparin Sodium (Lovenox -) 60 mg SQ Q12H [facility] Stop: 03/21/18 22:00 Last Admin: 03/20/18 00:09 Dose: 60 mg Folic Acid (Folic Acid -) 1 mg PO DAILY [facility] Last Admin: 03/19/18 10:39 Dose: Not Given Furosemide (Lasix Injection -) 40 mg IVPUSH BID@0600,1400 [facility] Last Admin: 03/20/18 06:02 Dose: 40 mg Lidocaine (Lidoderm Patch -) 1 patch TP DAILY [facility] Last Admin: 03/19/18 12:11 Dose: 1 patch Metoprolol Tartrate (Lopressor -) 50 mg PO BID [facility] Last Admin: 03/19/18 21:45 Dose: 50 mg Miscellaneous (Lidoderm Patch Removal) 1 each MC DAILY@2200 [facility] Last Admin: 03/19/18 21:43 Dose: 1 each Morphine Sulfate (Morphine Sulfate) 1 mg IVPUSH Q4H PRN PRN Reason: PAIN LEVEL 9-10 Oxycodone HCl (Roxicodone -) 5 mg PO Q6H PRN PRN Reason: PAIN LEVEL 6-8 Last Admin: 03/20/18 00:09 Dose: 5 mg Pantoprazole Sodium (Protonix -) 40 mg PO DAILY [facility] Last Admin: 03/19/18 10:39 Dose: Not Given Polyethylene Glycol (Miralax (For Daily Use) -) 17 gm PO BID [facility] Last Admin: 03/19/18 21:50 Dose: 17 gm - Objective Vital Signs: Vital Signs Temperature 98.3 F 03/20/18 05:00 Pulse Rate 105 H 04/21/18 05:00 Respiratory Rate 20 03/20/18 05:00 Blood Pressure 151/63 03/20/18 05:00 O2 Sat by Pulse Oximetry (%) 93 L 03/19/18 21:00 Elderly F not in distress hemodynamically stable c/o mild SOB HEENT: Mm moist, mild anemia, PERRLA EOMI NECK: No JVd No Bruit CHEST: Decrease AE RT Lower chest Crepts + CVS: S1S2 Irr EXT: Trace edema feet COIL WINDER STRAP: AOX3 non focal Labs: CBC, BMP 03/20/18 06:00 03/20/18 06:00 INR, PTT INR 2.53 (0.82-1.09) H D 03/17/18 17:34 Problem List - Problems (1) Pleural effusion Assessment/Plan: Rt ssided can be malignant needs aspiration on Lovenox F/U Pulmonary recommendations Code(s): J90 - PLEURAL EFFUSION, NOT ELSEWHERE CLASSIFIED (2) Metastatic lung cancer (metastasis from lung to other site) Assessment/Plan: F/U Oncology recommendations, pain control needs palliative care input Code(s): C34.90 - MALIGNANT NEOPLASM OF UNSP PART OF UNSP BRONCHUS OR LUNG Qualifiers: Laterality: left Qualified Code(s): C34.92 - Malignant neoplasm of unspecified part of left bronchus or lung (3) Atrial fibrillation Assessment/Plan: Rate controlled on Lovenox for possible aspiration will F/U Pulmonary consult Code(s): I48.91 - UNSPECIFIED ATRIAL FIBRILLATION Qualifiers: Atrial fibrillation type: persistent Qualified Code(s): I48.1 - Persistent atrial fibrillation (4) HLD (hyperlipidemia) Assessment/Plan: Cont Statin Code(s): E78.5 - HYPERLIPIDEMIA, UNSPECIFIED Qualifiers: Hyperlipidemia type: pure hypercholesterolemia Qualified Code(s): E78.00 - Pure hypercholesterolemia, unspecified; E78.0 - Pure hypercholesterolemia (5) HTN (hypertension) Assessment/Plan: Well controlled conr current meds Code(s): I10 - ESSENTIAL (PRIMARY) HYPERTENSION Qualifiers: Hypertension type: essential hypertension Qualified Code(s): I10 - Essential (primary) hypertension
[2018-03-20] MEDS ORDERED: PT OWN MED DRAWER 7, Y5N ONE (13:39)
--- NOTE | 2018-03-20 14:00 | PN ---
Progress Note (short form) - Note Progress Note: Chief Complaint: Events noted, notes reviewed, reports persistence of dyspnea and orthopnea, denies any chest discomfort History of Present Illness: Seen and examined. Events noted, notes reviewed, reports persistence of dyspnea and orthopnea, denies any chest discomfort Plan to proceed with thoracentesis this coming week, initiated on Lovenox therapy as a bridge pending completion of the above-noted procedure/ Thoracentesis Echocardiography dated 03/18/2018 Revealed Normal biventricular size and function, severe CHAS, moderate TR, mild MR, pleural effusion Echocardiography dated 02/20/2016 Revealed Normal LV size and Function, borderline TRACIE, severe TR, mild MR RVSP 40-50 mmHg - Current Medication List Current Medications Atorvastatin Calcium (Lipitor -) 10 mg PO HS [facility] Last Admin: 03/19/18 21:43 Dose: 10 mg Diltiazem HCl (Cardizem Cd -) 180 mg PO DAILY [facility] Last Admin: 03/20/18 11:03 Dose: 180 mg Docusate Sodium (Colace -) 100 mg PO TID [facility] Last Admin: 03/20/18 06:02 Dose: 100 mg Enoxaparin Sodium (Lovenox -) 60 mg SQ Q12H [facility] Stop: 03/21/18 22:00 Last Admin: 03/20/18 00:09 Dose: 60 mg Folic Acid (Folic Acid -) 1 mg PO DAILY [facility] Last Admin: 03/20/18 11:03 Dose: 1 mg Furosemide (Lasix Injection -) 40 mg IVPUSH BID@0600,1400 [facility] Last Admin: 03/20/18 06:02 Dose: 40 mg Lidocaine (Lidoderm Patch -) 1 patch TP DAILY [facility] Last Admin: 03/20/18 11:04 Dose: 1 patch Metoprolol Tartrate (Lopressor -) 50 mg PO BID [facility] Last Admin: 03/20/18 11:11 Dose: 50 mg Miscellaneous (Lidoderm Patch Removal) 1 each MC DAILY@2200 [facility] Last Admin: 03/19/18 21:43 Dose: 1 each Morphine Sulfate (Morphine Sulfate) 1 mg IVPUSH Q4H PRN PRN Reason: PAIN LEVEL 9-10 Oxycodone HCl (Roxicodone -) 5 mg PO Q6H PRN PRN Reason: PAIN LEVEL 6-8 Last Admin: 03/20/18 00:09 Dose: 5 mg Pantoprazole Sodium (Protonix -) 40 mg PO DAILY [facility] Last Admin: 03/20/18 11:03 Dose: 40 mg Polyethylene Glycol (Miralax (For Daily Use) -) 17 gm PO BID [facility] Last Admin: 03/20/18 11:05 Dose: Not Given - Objective Vital Signs: Last Vital Signs Temp Pulse Resp BP Pulse Ox 97.5 F L 110 H 20 93/73 93 L 03/20/18 13:33 03/20/18 13:33 03/20/18 13:33 03/20/18 13:33 03/19/18 21:00 Intake & Output 03/17/18 03/18/18 03/19/18 03/20/18 23:59 23:59 23:59 23:59 Intake Total 520 370 420 Balance 520 370 420 Weight 123 lb 130 lb 9.6 oz Constitutional: No Distress, Calm, Thin Neck: Supple Negative JVD no bruit appreciated Cardiovascular: S1 and S2 irregularly Irregular Respiratory: Diminished Breath sounds at the bases Gastrointestinal: Soft, Benign Normal Bowel Sounds Ext: No Edema Labs: CBC, BMP 03/20/18 06:00 03/20/18 06:00 Hepatic Panel Total Bilirubin 1.3 mg/dL (0.2-1.0) H 03/19/18 11:25 AST 25 U/L (15-37) 03/19/18 11:25 ALT 24 U/L (12-78) 03/19/18 11:25 Alkaline Phosphatase 164 U/L (45-117) H 03/19/18 11:25 Albumin 2.6 g/dl (3.4-5.0) L 03/19/18 11:25 Assessment/Plan ASSESSMENT: 1. Acute on chronic diastolic Class I-II [place] [employer] classification left ventricular failure, resolving 2. Persistent atrial fibrillation currently on Lovenox therapy for bridging prior to proceeding with diagnostic thoracentesis 3. CAD angina pectoris 4. Severe TR with moderate to severe degree of pulmonary hypertension 5. Right pleural effusion 6. History of recurrent left pleural effusion with pleural Nodules/suprahilar lung mass post L VATS/pleural biopsy/pleur-x placement 7. History of cerebrovascular disease 8. HTN/HCVD 9. Hyperlipidemia PLAN: 1. Continue Lasix with close monitoring of renal function 2. Hold Eliquis Pending completion of the above planned procedure/thoracentesis , Lovenox utilization as a bridge 3. Continue Cardizem CD 4. Continue Lopressor 5. Continue Lipitor 6. As outlined above planned thoracentesis this coming week Lazarus Tamayo MD
--- NOTE | 2018-03-20 16:00 | PN ---
Progress Note (short form) - Note Progress Note: Patient seen and examined c/o weakness, tiredness Last Vital Signs Temp Pulse Resp BP Pulse Ox 97.8 F 98 H 20 95/73 95 03/19/18 17:07 03/19/18 17:07 03/19/18 17:07 03/19/18 17:07 03/19/18 09:00 Cor: RSR, No murmurs, No gallops Lungs: decreased breathsounds at bases Abd: Soft, Normal bowel sounds, No organomegaly Ext:No significant edema Abnormal Lab Results 03/19/18 03/19/18 11:25 11:25 MCV 105.9 H MCH 36.3 H RDW 17.9 H MPV 7.3 L Potassium 3.2 L Chloride 97 L BUN 19 H Calcium 8.3 L Magnesium 1.7 L Total Bilirubin 1.3 H Alkaline Phosphatase 164 H Total Protein 5.9 L Albumin 2.6 L Active Medications Atorvastatin Calcium (Lipitor -) 10 mg PO HS [facility] Last Admin: 03/18/18 21:02 Dose: 10 mg Diltiazem HCl (Cardizem Cd -) 180 mg PO DAILY [facility] Last Admin: 03/19/18 12:11 Dose: 180 mg Docusate Sodium (Colace -) 100 mg PO TID [facility] Last Admin: 03/19/18 13:42 Dose: 100 mg Enoxaparin Sodium (Lovenox -) 60 mg SQ Q12H [facility] Stop: 03/21/18 22:00 Last Admin: 03/19/18 13:42 Dose: 60 mg Folic Acid (Folic Acid -) 1 mg PO DAILY [facility] Last Admin: 03/19/18 10:39 Dose: Not Given Furosemide (Lasix Injection -) 40 mg IVPUSH BID@0600,1400 [facility] Last Admin: 03/19/18 13:42 Dose: 40 mg Lidocaine (Lidoderm Patch -) 1 patch TP DAILY [facility] Last Admin: 03/19/18 12:11 Dose: 1 patch Metoprolol Tartrate (Lopressor -) 50 mg PO BID [facility] Last Admin: 03/19/18 10:27 Dose: 50 mg Miscellaneous (Lidoderm Patch Removal) 1 each MC DAILY@2200 [facility] Last Admin: 03/18/18 21:01 Dose: 1 each Morphine Sulfate (Morphine Sulfate) 1 mg IVPUSH Q4H PRN PRN Reason: PAIN LEVEL 9-10 Oxycodone HCl (Roxicodone -) 5 mg PO Q6H PRN PRN Reason: PAIN LEVEL 6-8 Pantoprazole Sodium (Protonix -) 40 mg PO DAILY [facility] Last Admin: 03/19/18 10:39 Dose: Not Given Polyethylene Glycol (Miralax (For Daily Use) -) 17 gm PO BID [facility] Last Admin: 03/19/18 16:45 Dose: 17 gm A/P 72 y/ o patient with metastatic adenocarinoma of lung s/p carbo/alimta with progression of disease. Now on novolumab, 2nd line Admitted with worsening effusions, edema, ascites ? decompensated CHF ? malignant effusion IV diuresis For thoracentesis early next week check coags discussed overall poor prognosis with daughter will request palliative care consult
[2018-03-20] MEDS: ATORVASTATIN CA 10 MG TABLET (FP) PO SCH (21:46)
[2018-03-20] MEDS: LIDOCAINE PATCH REMOVAL MC SCH (21:47)
[2018-03-21] MEDS: ENOXAPARIN NA (PORCINE) 60 MG/0.6 ML DISP.SYRIN SQ SCH (00:55)
[2018-03-21] MEDS: DOCUSATE SODIUM 100 MG CAPSULE (FP) PO SCH ×3 (06:29→21:29)
[2018-03-21] MEDS: FUROSEMIDE 40 MG/4 ML INJECTABLE VIAL IVPUSH SCH (06:30)
[2018-03-21 07:28] LABS: BASO % 2.3 % (0-2.0); EOS % 2.2 % (0-4.5); HEMATOCRIT 38.3 % (32.4-45.2); HEMOGLOBIN 13.2 GM/dL (10.7-15.3); LYMPH % 6.6 % (8-40); MCH 37.6 pg (25.7-33.7); MCHC 34.4 g/dl (32.0-36.0); MEAN CELL VOLUME 109.5 fl (80-96); MEAN PLT VOLUME 7.6 fl (7.5-11.1); MONO % 15.5 % (3.8-10.2); NEUT % 73.4 % (42.8-82.8); PLATELET COUNT 324 K/MM3 (134-434); RDW 18.2 % (11.6-15.6); WHITE BLOOD COUNT 5.5 K/mm3 (4.0-10.0)
[2018-03-21 07:36] LABS: INR 1.58 (0.82-1.09); PROTHROMBIN TIME (PATIENT) 17.8 SEC (9.98-11.88)
[2018-03-21 07:39] LABS: ACTIVATED PTT 54.5 SECONDS (26.9-34.4)
[2018-03-21 07:56] LABS: ALBUMIN 2.3 g/dl (3.4-5.0); ALK PHOS 144 U/L (45-117); ANION GAP 8 (8-16); BILIRUBIN,TOTAL 1.2 mg/dL (0.2-1.0); BLOOD UREA NITROGEN 15 mg/dL (7-18); CALCIUM 8.1 mg/dL (8.5-10.1); CHLORIDE 95 mmol/L (98-107); CO2 37 mmol/L (21-32); CREATININE 0.7 mg/dL (0.55-1.02); GLUCOSE,RANDOM 75 mg/dL (74-106); SGOT/AST 22 U/L (15-37); SGPT/ALT 19 U/L (12-78); SODIUM 140 mmol/L (136-145); TOT PROT 5.2 g/dl (6.4-8.2)
[2018-03-21] MEDS: PANTOPRAZOLE 40 MG TABLET (FP) PO SCH (10:24)
[2018-03-21] MEDS: METOPROLOL TARTRATE 50 MG TABLET (FP) PO SCH ×3 (10:25→21:34)
[2018-03-21] MEDS: FOLIC ACID 1 MG TABLET (FP) PO SCH (10:25)
[2018-03-21] MEDS: LIDOCAINE 5% TOPICAL PATCH TP SCH (10:25)
[2018-03-21] MEDS: POLYETHYLENE GLYCOL 3350 119 GM BTL PO SCH ×2 (10:27→21:34)
--- NOTE | 2018-03-21 10:38 | PN ---
Progress Note (short form) - Note Progress Note: Chief Complaint: Events noted, notes reviewed, reports persistence of dyspnea and orthopnea, reports generalized weakness, denies any chest discomfort History of Present Illness: Seen and examined. Events noted, notes reviewed, reports persistence of dyspnea and orthopnea, reports generalized weakness, denies any chest discomfort Plan to proceed with thoracentesis this coming week, initiated on Lovenox therapy as a bridge pending completion of the above-noted procedure/ Thoracentesis Hypotensive this AM Echocardiography dated 03/18/2018 Revealed Normal biventricular size and function, severe CHAS, moderate TR, mild MR, pleural effusion Echocardiography dated 02/20/2016 Revealed Normal LV size and Function, borderline TRACIE, severe TR, mild MR RVSP 40-50 mmHg - Current Medication List Current Medications Atorvastatin Calcium (Lipitor -) 10 mg PO HS [facility] Last Admin: 03/20/18 21:46 Dose: 10 mg Diltiazem HCl (Cardizem Cd -) 180 mg PO DAILY [facility] Last Admin: 03/20/18 11:03 Dose: 180 mg Docusate Sodium (Colace -) 100 mg PO TID [facility] Last Admin: 03/21/18 06:29 Dose: Not Given Enoxaparin Sodium (Lovenox -) 60 mg SQ Q12H [facility] Stop: 03/21/18 22:00 Last Admin: 03/21/18 00:55 Dose: 60 mg Folic Acid (Folic Acid -) 1 mg PO DAILY [facility] Last Admin: 03/21/18 10:25 Dose: 1 mg Furosemide (Lasix Injection -) 40 mg IVPUSH BID@0600,1400 [facility] Last Admin: 03/21/18 06:30 Dose: 40 mg Lidocaine (Lidoderm Patch -) 1 patch TP DAILY [facility] Last Admin: 03/21/18 10:25 Dose: 1 patch Metoprolol Tartrate (Lopressor -) 50 mg PO BID [facility] Last Admin: 03/21/18 10:25 Dose: 50 mg Miscellaneous (Lidoderm Patch Removal) 1 each MC DAILY@2200 [facility] Last Admin: 03/20/18 21:47 Dose: 1 each Morphine Sulfate (Morphine Sulfate) 1 mg IVPUSH Q4H PRN PRN Reason: PAIN LEVEL 9-10 Oxycodone HCl (Roxicodone -) 5 mg PO Q6H PRN PRN Reason: PAIN LEVEL 6-8 Last Admin: 03/20/18 21:47 Dose: 5 mg Pantoprazole Sodium (Protonix -) 40 mg PO DAILY [facility] Last Admin: 03/21/18 10:24 Dose: 40 mg Polyethylene Glycol (Miralax (For Daily Use) -) 17 gm PO BID [facility] Last Admin: 03/21/18 10:27 Dose: 17 gm - Objective Vital Signs: Last Vital Signs Temp Pulse Resp BP Pulse Ox 97.9 F 104 H 18 91/78 93 L 03/21/18 09:57 03/21/18 09:57 03/21/18 09:57 03/21/18 09:57 03/20/18 20:49 Intake & Output 03/18/18 03/19/18 03/20/18 03/21/18 23:59 23:59 23:59 23:59 Intake Total 520 370 690 200 Balance 520 370 690 200 Weight 130 lb 9.6 oz Constitutional: No Distress, Calm, Thin Neck: Supple Negative JVD no bruit appreciated Cardiovascular: S1 and S2 irregularly Irregular Respiratory: Diminished Breath sounds at the bases Gastrointestinal: Soft, Benign Normal Bowel Sounds Ext: No Edema Labs: CBC, BMP 03/21/18 06:00 03/21/18 06:00 Assessment/Plan ASSESSMENT: 1. Acute on chronic diastolic Class I-II [place] [employer] classification left ventricular failure, resolved, clinically euvolemic to hypovolemic 2. Persistent atrial fibrillation currently on Lovenox therapy for bridging prior to proceeding with diagnostic thoracentesis 3. CAD angina pectoris 4. Severe TR with moderate to severe degree of pulmonary hypertension 5. Right pleural effusion 6. History of recurrent left pleural effusion with pleural nodules/supra-hilar lung mass post left VATS/pleural biopsy/pleur-x placement 7. History of cerebrovascular disease 8. HTN/HCVD 9. Hyperlipidemia PLAN: 1. Hold Lasix and may consider IV fluid with caution if hypotension persists 2. As outlined hold Eliquis Pending completion of the above planned procedure/ thoracentesis, Lovenox utilization as a bridge 3. Hold Cardizem CD 4. Continue Lopressor but increase dosage 5. Continue Lipitor 6. As outlined above planned thoracentesis this coming week Care discussed with the patient in detail Lazarus Tamayo MD
[2018-03-21] MEDS ORDERED: ENOXAPARIN NA (PORCINE) 60 MG/0.6 ML DISP.SYRIN SQ SCH (11:00)
--- NOTE | 2018-03-21 11:41 | PN ---
Progress Note (short form) - Note Progress Note: PULMONARY LYING COMFORTABLY THIS MORNING VSS/AFEBRILE PALE/CHRONICALLY ILL IN APPEARANCE ANICTERIC DIMINISHED BREATH SOUNDS RIGHT BASE UP 1/3 LUNG FIELD DECREASED BREATH SOUNDS ON LEFT S1S2 IRREG BS+ NO EDEMA LABS/MEDS/NOTES/IMAGES REVIEWED Suspect decompensated CHF Metastatic NSCLC (Adenocarcinoma) Right Pleural Effusion Atrial Fibrillation Pulmonary HTN Hypercholesterolemia - IV lasix on hold as per cardio - monitor urine output, creatinine - re-attempt right sided thoracentesis to r/o malignant involvement if patient permits - hold eliquis prior to thoracentesis - rate control - O2 to keep SpO2 >90% - replete K+ Gaurang BARBOUR MD
[2018-03-21] MEDS ORDERED: PT OWN MED DRAWER 7, Y5N ONE (13:03)
[2018-03-21] MEDS ORDERED: POTASSIUM CHLORIDE ORAL LIQUID 20 MEQ/15 ML PO ONE ×3 (14:49→22:00)
[2018-03-21] MEDS ORDERED: KCL 10 MEQ IVPB 10 MEQ/100 ML INFUS.BAG IVPB SCH (15:00)
--- NOTE | 2018-03-21 15:29 | PN ---
Progress Note, Physician Chief Complaint: c/O Pain couldnt tolerate thoracocentesis History of Present Illness: 72 y/o woman with a PMH Stage IV Metastatic Lung Ca (on chemo), Afib . Who presents to the ED with her daughters for progressively SOB and Hypoxia with Rt sided pleural effusion. - Current Medication List Current Medications: Active Medications Atorvastatin Calcium (Lipitor -) 10 mg PO HS [facility] [place] Last Admin: 03/20/18 21:46 Dose: 10 mg Docusate Sodium (Colace -) 100 mg PO TID [facility] [place] Last Admin: 03/21/18 14:21 Dose: Not Given Enoxaparin Sodium (Lovenox -) 60 mg SQ BID [facility] [place] Stop: 03/21/18 22:01 Last Admin: 03/21/18 14:37 Dose: 60 mg Folic Acid (Folic Acid -) 1 mg PO DAILY [facility] [place] Last Admin: 03/21/18 10:25 Dose: 1 mg Potassium Chloride (Potassium Chloride 10 Meq Premix Ivpb -) 10 meq in 100 mls @ 100 mls/hr IVPB Q60M [facility] [place] Stop: 03/21/18 15:59 Lidocaine (Lidoderm Patch -) 1 patch TP DAILY [facility] [place] Last Admin: 03/21/18 10:25 Dose: 1 patch Metoprolol Tartrate (Lopressor -) 50 mg PO TID [facility] [place] Last Admin: 03/21/18 14:21 Dose: Not Given Miscellaneous (Lidoderm Patch Removal) 1 each MC DAILY@2200 [facility] [place] Last Admin: 03/20/18 21:47 Dose: 1 each Morphine Sulfate (Morphine Sulfate) 1 mg IVPUSH Q4H PRN PRN Reason: PAIN LEVEL 9-10 Oxycodone HCl (Roxicodone -) 5 mg PO Q6H PRN PRN Reason: PAIN LEVEL 6-8 Last Admin: 03/20/18 21:47 Dose: 5 mg Pantoprazole Sodium (Protonix -) 40 mg PO DAILY [facility] [place] Last Admin: 03/21/18 10:24 Dose: 40 mg Polyethylene Glycol (Miralax (For Daily Use) -) 17 gm PO BID [facility] [place] Last Admin: 03/21/18 10:27 Dose: 17 gm - Objective Vital Signs: Vital Signs Temperature 97.9 F 03/21/18 13:11 Pulse Rate 102 H 03/21/18 13:11 Respiratory Rate 20 03/21/18 13:11 Blood Pressure 94/72 03/21/18 13:11 O2 Sat by Pulse Oximetry (%) 93 L 03/21/18 09:00 Elderly F not in distress hemodynamically stable c/o mild SOB HEENT: Mm moist, mild anemia, PERRLA EOMI NECK: No JVd No Bruit CHEST: Decrease AE RT Lower chest Crepts + CVS: S1S2 Irr EXT: Trace edema feet CODING CLERK: AOX3 non focal Labs: CBC, BMP 03/21/18 06:00 03/21/18 06:00 INR, PTT INR 1.58 (0.82-1.09) H D 03/21/18 06:00 Fibrinogen 388.0 mg/dL (238-498) 03/21/18 06:00 Problem List - Problems (1) Pleural effusion Assessment/Plan: Rt ssided can be malignant needs aspiration on Lovenox F/U Pulmonary recommendations Code(s): J90 - PLEURAL EFFUSION, NOT ELSEWHERE CLASSIFIED (2) Metastatic lung cancer (metastasis from lung to other site) Assessment/Plan: F/U Oncology recommendations, pain control needs palliative care input Code(s): C34.90 - MALIGNANT NEOPLASM OF UNSP PART OF UNSP BRONCHUS OR LUNG Qualifiers: Laterality: left Qualified Code(s): C34.92 - Malignant neoplasm of unspecified part of left bronchus or lung (3) Atrial fibrillation Assessment/Plan: Rate controlled on Lovenox for possible aspiration will F/U Pulmonary consult Code(s): I48.91 - UNSPECIFIED ATRIAL FIBRILLATION Qualifiers: Atrial fibrillation type: persistent Qualified Code(s): I48.1 - Persistent atrial fibrillation (4) HLD (hyperlipidemia) Assessment/Plan: Cont Statin Code(s): E78.5 - HYPERLIPIDEMIA, UNSPECIFIED Qualifiers: Hyperlipidemia type: pure hypercholesterolemia Qualified Code(s): E78.00 - Pure hypercholesterolemia, unspecified; E78.0 - Pure hypercholesterolemia (5) HTN (hypertension) Assessment/Plan: Well controlled conr current meds Code(s): I10 - ESSENTIAL (PRIMARY) HYPERTENSION Qualifiers: Hypertension type: essential hypertension Qualified Code(s): I10 - Essential (primary) hypertension (6) Hypokalemia Assessment/Plan: KCL 20 mg BID F/U mag and Rpt BMP in am Code(s): E87.6 - HYPOKALEMIA
--- NOTE | 2018-03-21 16:02 | PN ---
Progress Note (short form) - Note Progress Note: Patient seen and examined c/o weakness, tiredness Last Vital Signs Temp Pulse Resp BP Pulse Ox 97.8 F 98 H 20 95/73 95 03/19/18 17:07 03/19/18 17:07 03/19/18 17:07 03/19/18 17:07 03/19/18 09:00 Cor: RSR, No murmurs, No gallops Lungs: decreased breathsounds at bases Abd: Soft, Normal bowel sounds, No organomegaly Ext:No significant edema Abnormal Lab Results 03/19/18 03/19/18 11:25 11:25 MCV 105.9 H MCH 36.3 H RDW 17.9 H MPV 7.3 L Potassium 3.2 L Chloride 97 L BUN 19 H Calcium 8.3 L Magnesium 1.7 L Total Bilirubin 1.3 H Alkaline Phosphatase 164 H Total Protein 5.9 L Albumin 2.6 L Active Medications Atorvastatin Calcium (Lipitor -) 10 mg PO HS [facility] Last Admin: 03/18/18 21:02 Dose: 10 mg Diltiazem HCl (Cardizem Cd -) 180 mg PO DAILY [facility] Last Admin: 03/19/18 12:11 Dose: 180 mg Docusate Sodium (Colace -) 100 mg PO TID [facility] Last Admin: 03/19/18 13:42 Dose: 100 mg Enoxaparin Sodium (Lovenox -) 60 mg SQ Q12H [facility] Stop: 03/21/18 22:00 Last Admin: 03/19/18 13:42 Dose: 60 mg Folic Acid (Folic Acid -) 1 mg PO DAILY [facility] Last Admin: 03/19/18 10:39 Dose: Not Given Furosemide (Lasix Injection -) 40 mg IVPUSH BID@0600,1400 [facility] Last Admin: 03/19/18 13:42 Dose: 40 mg Lidocaine (Lidoderm Patch -) 1 patch TP DAILY [facility] Last Admin: 03/19/18 12:11 Dose: 1 patch Metoprolol Tartrate (Lopressor -) 50 mg PO BID [facility] Last Admin: 03/19/18 10:27 Dose: 50 mg Miscellaneous (Lidoderm Patch Removal) 1 each MC DAILY@2200 [facility] Last Admin: 03/18/18 21:01 Dose: 1 each Morphine Sulfate (Morphine Sulfate) 1 mg IVPUSH Q4H PRN PRN Reason: PAIN LEVEL 9-10 Oxycodone HCl (Roxicodone -) 5 mg PO Q6H PRN PRN Reason: PAIN LEVEL 6-8 Pantoprazole Sodium (Protonix -) 40 mg PO DAILY [facility] Last Admin: 03/19/18 10:39 Dose: Not Given Polyethylene Glycol (Miralax (For Daily Use) -) 17 gm PO BID [facility] Last Admin: 03/19/18 16:45 Dose: 17 gm A/P 72 y/ o patient with metastatic adenocarinoma of lung s/p carbo/alimta with progression of disease. Now on nivolumab, 2nd line Admitted with worsening effusions, edema, ascites ? decompensated CHF ? malignant effusion For thoracentesis ? tomorrow check coags hold lovenox discussed overall poor prognosis with daughter will request palliative care consult
[2018-03-21 16:09] LABS: MAGNESIUM 1.4 mg/dL (1.8-2.4)
[2018-03-21] MEDS ORDERED: MAGNESIUM SULF 50% (8.12 MEQ/2 ML-1 GM VIAL) IVPB ONE (16:32)
[2018-03-21] MEDS ORDERED: MAGNESIUM SULFATE IN WATER 2 GM/50 ML IVPB IVPB ONE (16:45)
[2018-03-21] MEDS: oxyCODONE HCL 5 MG TABLET PO PRN (17:02)
[2018-03-21] MEDS: ATORVASTATIN CA 10 MG TABLET (FP) PO SCH (21:29)
[2018-03-21] MEDS: LIDOCAINE PATCH REMOVAL MC SCH (21:29)
[2018-03-22] MEDS: morphine SULFATE 4 MG/ML VIAL IVPUSH PRN ×2 (04:10→10:05)
[2018-03-22] MEDS: DOCUSATE SODIUM 100 MG CAPSULE (FP) PO SCH ×3 (06:21→21:20)
[2018-03-22] MEDS: METOPROLOL TARTRATE 50 MG TABLET (FP) PO SCH ×4 (06:22→21:20)
[2018-03-22 08:27] LABS: BASO % 1.3 % (0-2.0); HEMATOCRIT 43.1 % (32.4-45.2); HEMOGLOBIN 14.8 GM/dL (10.7-15.3); LYMPH % 5.6 % (8-40); MCH 37.4 pg (25.7-33.7); MCHC 34.5 g/dl (32.0-36.0); MEAN CELL VOLUME 108.4 fl (80-96); MEAN PLT VOLUME 6.9 fl (7.5-11.1); MONO % 11.4 % (3.8-10.2); NEUT % 80.7 % (42.8-82.8); PLATELET COUNT 295 K/MM3 (134-434); RBC 3.97 M/mm3 (3.60-5.2); RDW 18.1 % (11.6-15.6); WHITE BLOOD COUNT 6.2 K/mm3 (4.0-10.0)
[2018-03-22 08:39] LABS: INR 1.26 (0.82-1.09); PROTHROMBIN TIME (PATIENT) 14.2 SEC (9.98-11.88)
[2018-03-22 08:42] LABS: ACTIVATED PTT 32.1 SECONDS (26.9-34.4)
[2018-03-22 08:58] LABS: ALBUMIN 2.4 g/dl (3.4-5.0); ANION GAP 6 (8-16); BILIRUBIN,TOTAL 1.1 mg/dL (0.2-1.0); BLOOD UREA NITROGEN 12 mg/dL (7-18); CALCIUM 8.2 mg/dL (8.5-10.1); CHLORIDE 97 mmol/L (98-107); CO2 35 mmol/L (21-32); CREATININE 0.7 mg/dL (0.55-1.02); GLUCOSE,RANDOM 93 mg/dL (74-106); POTASSIUM 3.7 mmol/L (3.5-5.1); SGOT/AST 21 U/L (15-37); SGPT/ALT 20 U/L (12-78); SODIUM 138 mmol/L (136-145); TOT PROT 5.7 g/dl (6.4-8.2)
[2018-03-22 08:59] LABS: ALK PHOS 169 U/L (45-117)
[2018-03-22] MEDS: POLYETHYLENE GLYCOL 3350 119 GM BTL PO SCH ×2 (09:49→21:34)
[2018-03-22] MEDS: FOLIC ACID 1 MG TABLET (FP) PO SCH (10:16)
--- NOTE | 2018-03-22 11:32 | PN ---
Progress Note, Physician History of Present Illness: Await thoracentesis. - Current Medication List Current Medications: Active Medications Atorvastatin Calcium (Lipitor -) 10 mg PO HS [facility] Last Admin: 03/21/18 21:29 Dose: 10 mg Docusate Sodium (Colace -) 100 mg PO TID [facility] Last Admin: 03/22/18 06:21 Dose: Not Given Folic Acid (Folic Acid -) 1 mg PO DAILY [facility] Last Admin: 03/21/18 10:25 Dose: 1 mg Lidocaine (Lidoderm Patch -) 1 patch TP DAILY [facility] Last Admin: 03/21/18 10:25 Dose: 1 patch Metoprolol Tartrate (Lopressor -) 50 mg PO TID [facility] Last Admin: 03/22/18 07:08 Dose: 50 mg Miscellaneous (Lidoderm Patch Removal) 1 each MC DAILY@2200 [facility] Last Admin: 03/21/18 21:29 Dose: 1 each Morphine Sulfate (Morphine Sulfate) 1 mg IVPUSH Q4H PRN PRN Reason: PAIN LEVEL 9-10 Last Admin: 03/22/18 10:05 Dose: 1 mg Oxycodone HCl (Roxicodone -) 5 mg PO Q6H PRN PRN Reason: PAIN LEVEL 6-8 Last Admin: 03/21/18 17:02 Dose: 5 mg Pantoprazole Sodium (Protonix -) 40 mg PO DAILY [facility] Last Admin: 03/21/18 10:24 Dose: 40 mg Polyethylene Glycol (Miralax (For Daily Use) -) 17 gm PO BID [facility] Last Admin: 03/21/18 21:34 Dose: 17 gm - Objective Vital Signs: Vital Signs Temperature 97.9 F 03/22/18 05:39 Pulse Rate 123 H 03/22/18 05:39 Respiratory Rate 20 03/22/18 05:39 Blood Pressure 93/72 03/22/18 05:39 O2 Sat by Pulse Oximetry (%) 93 L 03/21/18 21:00 Constitutional: Yes: No Distress, Calm, Thin Neck: Yes: Supple Cardiovascular: Yes: Tachycardia, Pulse Irregular Respiratory: Yes: Regular, Diminished, On Nasal O2 Gastrointestinal: Yes: Soft, Hypoactive Bowel Sounds Edema: No Labs: CBC, BMP 03/22/18 08:15 03/22/18 08:15 INR, PTT INR 1.26 (0.82-1.09) H 03/22/18 08:15 Fibrinogen 383.0 mg/dL (238-498) 03/22/18 08:15 Problem List - Problems (1) Acute on chronic diastolic (congestive) heart failure Code(s): I50.33 - ACUTE ON CHRONIC DIASTOLIC (CONGESTIVE) HEART FAILURE (2) Severe tricuspid regurgitation by prior echocardiogram Code(s): I07.1 - RHEUMATIC TRICUSPID INSUFFICIENCY (3) Pleural effusion Code(s): J90 - PLEURAL EFFUSION, NOT ELSEWHERE CLASSIFIED (4) SOB (shortness of breath) Code(s): R06.02 - SHORTNESS OF BREATH (5) Atrial fibrillation Code(s): I48.91 - UNSPECIFIED ATRIAL FIBRILLATION Qualifiers: Atrial fibrillation type: persistent Qualified Code(s): I48.1 - Persistent atrial fibrillation (6) Cerebrovascular disease Code(s): I67.9 - CEREBROVASCULAR DISEASE, UNSPECIFIED (7) HLD (hyperlipidemia) Code(s): E78.5 - HYPERLIPIDEMIA, UNSPECIFIED Qualifiers: Hyperlipidemia type: pure hypercholesterolemia Qualified Code(s): E78.00 - Pure hypercholesterolemia, unspecified; E78.0 - Pure hypercholesterolemia (8) Lung cancer Code(s): C34.90 - MALIGNANT NEOPLASM OF UNSP PART OF UNSP BRONCHUS OR LUNG (9) HTN (hypertension) Code(s): I10 - ESSENTIAL (PRIMARY) HYPERTENSION Qualifiers: Hypertension type: essential hypertension Qualified Code(s): I10 - Essential (primary) hypertension Assessment/Plan 1. Acute on chronic diastolic Class I-II [place] [employer] classification left ventricular failure, resolved, clinically euvolemic to hypovolemic 2. Persistent atrial fibrillation with Eliquis held for diagnostic thoracentesis 3. CAD angina pectoris 4. Severe TR with moderate to severe degree of pulmonary hypertension 5. Right pleural effusion 6. Metastatic NSCLC (Adenocarcinoma) with recurrent left pleural effusion with pleural nodules/supra-hilar lung mass post left VATS/pleural biopsy/pleur-x placement 7. History of cerebrovascular disease 8. HTN/HCVD 9. Hyperlipidemia PLAN: 1. Hold Lasix and may consider IV fluid with caution if hypotension persists 2. As outlined hold Eliquis pending completion of the above planned procedure/ thoracentesis 3. Hold Cardizem CD for now 4. Continue Lopressor 50 tid as hemodynamics tolerate 5. Continue Lipitor 10 qhs 6. As outlined above planned thoracentesis today
--- NOTE | 2018-03-22 12:39 | PN ---
Progress Note, Physician Chief Complaint: Pt lying in bed, reports sob, on O2 via NC. s/p thoracentesis. Denies any chest pain, n/v/d, or unilateral weakness. - Current Medication List Current Medications: Active Medications Atorvastatin Calcium (Lipitor -) 10 mg PO HS [facility] Last Admin: 03/21/18 21:29 Dose: 10 mg Docusate Sodium (Colace -) 100 mg PO TID [facility] Last Admin: 03/22/18 06:21 Dose: Not Given Folic Acid (Folic Acid -) 1 mg PO DAILY [facility] Last Admin: 03/21/18 10:25 Dose: 1 mg Lidocaine (Lidoderm Patch -) 1 patch TP DAILY [facility] Last Admin: 03/21/18 10:25 Dose: 1 patch Metoprolol Tartrate (Lopressor -) 50 mg PO TID [facility] Last Admin: 03/22/18 07:08 Dose: 50 mg Miscellaneous (Lidoderm Patch Removal) 1 each MC DAILY@2200 [facility] Last Admin: 03/21/18 21:29 Dose: 1 each Pantoprazole Sodium (Protonix -) 40 mg PO DAILY [facility] Last Admin: 03/21/18 10:24 Dose: 40 mg Polyethylene Glycol (Miralax (For Daily Use) -) 17 gm PO BID [facility] Last Admin: 03/21/18 21:34 Dose: 17 gm - Objective Vital Signs: Vital Signs Temperature 97.9 F 03/22/18 05:39 Pulse Rate 123 H 03/22/18 05:39 Respiratory Rate 20 03/22/18 05:39 Blood Pressure 93/72 03/22/18 05:39 O2 Sat by Pulse Oximetry (%) 93 L 03/21/18 21:00 Constitutional: Yes: Calm, Thin Cardiovascular: Yes: Tachycardia, Pulse Irregular. No: Gallop, Murmur, Rub Respiratory: Yes: Regular, Diminished, On Nasal O2, SOB. No: Accessory Muscle Use, Tachypnea, Wheezes Gastrointestinal: Yes: WNL, Normal Bowel Sounds, Soft. No: Distention, Tenderness Genitourinary: Yes: WNL Edema: Yes Edema: LLE: Trace, RLE: Trace Neurological: Yes: WNL, Alert, Oriented Psychiatric: Yes: WNL, Alert, Oriented Labs: CBC, BMP 03/22/18 08:15 03/22/18 08:15 INR, PTT INR 1.26 (0.82-1.09) H 03/22/18 08:15 Fibrinogen 383.0 mg/dL (238-498) 03/22/18 08:15 Problem List - Problems (1) Metastatic lung cancer (metastasis from lung to other site) Code(s): C34.90 - MALIGNANT NEOPLASM OF UNSP PART OF UNSP BRONCHUS OR LUNG Qualifiers: Laterality: left Qualified Code(s): C34.92 - Malignant neoplasm of unspecified part of left bronchus or lung (2) Pleural effusion Code(s): J90 - PLEURAL EFFUSION, NOT ELSEWHERE CLASSIFIED (3) SOB (shortness of breath) Code(s): R06.02 - SHORTNESS OF BREATH (4) Atrial fibrillation Code(s): I48.91 - UNSPECIFIED ATRIAL FIBRILLATION Qualifiers: Atrial fibrillation type: persistent Qualified Code(s): I48.1 - Persistent atrial fibrillation (5) HLD (hyperlipidemia) Code(s): E78.5 - HYPERLIPIDEMIA, UNSPECIFIED Qualifiers: Hyperlipidemia type: pure hypercholesterolemia Qualified Code(s): E78.00 - Pure hypercholesterolemia, unspecified; E78.0 - Pure hypercholesterolemia (6) HTN (hypertension) Code(s): I10 - ESSENTIAL (PRIMARY) HYPERTENSION Qualifiers: Hypertension type: essential hypertension Qualified Code(s): I10 - Essential (primary) hypertension (7) CHF (congestive heart failure) Code(s): I50.9 - HEART FAILURE, UNSPECIFIED Qualifiers: Heart failure type: diastolic Heart failure chronicity: acute on chronic Qualified Code(s): I50.33 - Acute on chronic diastolic (congestive) heart failure Assessment/Plan (1) Metastatic lung cancer (metastasis from lung to other site) Assessment/Plan: PETTY mass, right sided effusion with atelectasis on immunotherapy outpt oncology oncology following and discussed with pt and family poor prognosis Code(s): C34.90 - MALIGNANT NEOPLASM OF UNSP PART OF UNSP BRONCHUS OR LUNG Qualifiers: Laterality: left Qualified Code(s): C34.92 - Malignant neoplasm of unspecified part of left bronchus or lung (2) Pleural effusion Assessment/Plan: previous hx of left pleural effusion now w/ right sided effusion r/o malignant eff s/p thorcentesis await pathology will monitor Code(s): J90 - PLEURAL EFFUSION, NOT ELSEWHERE CLASSIFIED (3) SOB (shortness of breath) Assessment/Plan: as above O2 Code(s): R06.02 - SHORTNESS OF BREATH (4) Atrial fibrillation Assessment/Plan: rate controlled continue bb cardizem on hold eliquis cardiology following Code(s): I48.91 - UNSPECIFIED ATRIAL FIBRILLATION Qualifiers: Atrial fibrillation type: persistent Qualified Code(s): I48.1 - Persistent atrial fibrillation (5) HLD (hyperlipidemia) Assessment/Plan: chronic continue statin Code(s): E78.5 - HYPERLIPIDEMIA, UNSPECIFIED Qualifiers: Hyperlipidemia type: pure hypercholesterolemia Qualified Code(s): E78.00 - Pure hypercholesterolemia, unspecified; E78.0 - Pure hypercholesterolemia (6) HTN (hypertension) Assessment/Plan: controlled hypotensive today, gentle fluid bolus will monitor Code(s): I10 - ESSENTIAL (PRIMARY) HYPERTENSION Qualifiers: Hypertension type: essential hypertension Qualified Code(s): I10 - Essential (primary) hypertension (7) CHF (congestive heart failure) Assessment/Plan: acute on chronic, diastolic continue diuresis per cardiology daily weights cardiology following Code(s): I50.9 - HEART FAILURE, UNSPECIFIED Qualifiers: Heart failure type: diastolic Heart failure chronicity: acute on chronic Qualified Code(s): I50.33 - Acute on chronic diastolic (congestive) heart failure
[2018-03-22] MEDS: PANTOPRAZOLE 40 MG TABLET (FP) PO SCH (14:18)
[2018-03-22] MEDS ORDERED: SODIUM CHLORIDE 500 ML IV SCH (14:45)
[2018-03-22 15:30] LABS: GLUCOSE,PLEURAL FLUID 93.987; TOTAL PROTEIN,PLEURAL FLUID 2.035
[2018-03-22 15:37] LABS: PLEURAL FLUID APPEARANCE HAZY; PLEURAL FLUID COLOR YELLOW; PLEURAL FLUID RBC 2451 /mm3
--- NOTE | 2018-03-22 16:31 | PN ---
Progress Note (short form) - Note Progress Note: Patient seen and examined c/o weakness, tiredness s/p thoracentesis Last Vital Signs Temp Pulse Resp BP Pulse Ox 97.8 F 98 H 20 95/73 95 03/19/18 17:07 03/19/18 17:07 03/19/18 17:07 03/19/18 17:07 03/19/18 09:00 Cor: RSR, No murmurs, No gallops Lungs: decreased breathsounds at bases Abd: Soft, Normal bowel sounds, No organomegaly Ext:No significant edema Abnormal Lab Results 03/19/18 03/19/18 11:25 11:25 MCV 105.9 H MCH 36.3 H RDW 17.9 H MPV 7.3 L Potassium 3.2 L Chloride 97 L BUN 19 H Calcium 8.3 L Magnesium 1.7 L Total Bilirubin 1.3 H Alkaline Phosphatase 164 H Total Protein 5.9 L Albumin 2.6 L Active Medications Atorvastatin Calcium (Lipitor -) 10 mg PO HS [facility] Last Admin: 03/18/18 21:02 Dose: 10 mg Diltiazem HCl (Cardizem Cd -) 180 mg PO DAILY [facility] Last Admin: 03/19/18 12:11 Dose: 180 mg Docusate Sodium (Colace -) 100 mg PO TID [facility] Last Admin: 03/19/18 13:42 Dose: 100 mg Enoxaparin Sodium (Lovenox -) 60 mg SQ Q12H [facility] Stop: 03/21/18 22:00 Last Admin: 03/19/18 13:42 Dose: 60 mg Folic Acid (Folic Acid -) 1 mg PO DAILY [facility] Last Admin: 03/19/18 10:39 Dose: Not Given Furosemide (Lasix Injection -) 40 mg IVPUSH BID@0600,1400 [facility] Last Admin: 03/19/18 13:42 Dose: 40 mg Lidocaine (Lidoderm Patch -) 1 patch TP DAILY [facility] Last Admin: 03/19/18 12:11 Dose: 1 patch Metoprolol Tartrate (Lopressor -) 50 mg PO BID [facility] Last Admin: 03/19/18 10:27 Dose: 50 mg Miscellaneous (Lidoderm Patch Removal) 1 each MC DAILY@2200 [facility] Last Admin: 03/18/18 21:01 Dose: 1 each Morphine Sulfate (Morphine Sulfate) 1 mg IVPUSH Q4H PRN PRN Reason: PAIN LEVEL 9-10 Oxycodone HCl (Roxicodone -) 5 mg PO Q6H PRN PRN Reason: PAIN LEVEL 6-8 Pantoprazole Sodium (Protonix -) 40 mg PO DAILY [facility] Last Admin: 03/19/18 10:39 Dose: Not Given Polyethylene Glycol (Miralax (For Daily Use) -) 17 gm PO BID [facility] Last Admin: 03/19/18 16:45 Dose: 17 gm A/P 72 y/ o patient with metastatic adenocarinoma of lung s/p carbo/alimta with progression of disease. Now on nivolumab, 2nd line Admitted with worsening effusions, edema, ascites ? decompensated CHF ? malignant effusion s/p thoracentesis discussed overall poor prognosis with daughter and discussed about addressing DNR/DNI---patient /family to decide will request palliative care consult family al placement in [facility]
[2018-03-22] MEDS: LIDOCAINE 5% TOPICAL PATCH TP SCH (17:19)
[2018-03-22] MEDS: ACETAMINOPHEN 325 MG TABLET (FP) PO PRN (17:57)
[2018-03-22] MEDS: ATORVASTATIN CA 10 MG TABLET (FP) PO SCH (21:20)
[2018-03-22] MEDS: oxyCODONE HCL 5 MG TABLET PO PRN (21:21)
[2018-03-22] MEDS: LIDOCAINE PATCH REMOVAL MC SCH (21:34)
[2018-03-22] MEDS: APIXABAN 5 MG TABLET PO SCH (21:34)
[2018-03-23] MEDS: DOCUSATE SODIUM 100 MG CAPSULE (FP) PO SCH ×3 (05:40→21:52)
[2018-03-23] MEDS: METOPROLOL TARTRATE 50 MG TABLET (FP) PO SCH ×3 (05:44→21:52)
[2018-03-23 07:37] LABS: EOS % 1.1 % (0-4.5); HEMATOCRIT 42.5 % (32.4-45.2); HEMOGLOBIN 14.7 GM/dL (10.7-15.3); LYMPH % 8.7 % (8-40); MCHC 34.7 g/dl (32.0-36.0); MEAN CELL VOLUME 109.6 fl (80-96); MEAN PLT VOLUME 7.6 fl (7.5-11.1); MONO % 11.6 % (3.8-10.2); NEUT % 77.6 % (42.8-82.8); PLATELET COUNT 298 K/MM3 (134-434); RBC 3.88 M/mm3 (3.60-5.2); RDW 18.3 % (11.6-15.6); WHITE BLOOD COUNT 5.9 K/mm3 (4.0-10.0)
[2018-03-23 08:01] LABS: ANION GAP 6 (8-16); BLOOD UREA NITROGEN 21 mg/dL (7-18); CALCIUM 8.2 mg/dL (8.5-10.1); CHLORIDE 99 mmol/L (98-107); CO2 35 mmol/L (21-32); GLUCOSE,RANDOM 92 mg/dL (74-106); MAGNESIUM 1.9 mg/dL (1.8-2.4); POTASSIUM 3.7 mmol/L (3.5-5.1); SODIUM 140 mmol/L (136-145)
[2018-03-23 08:06] LABS: CREATININE 0.8 mg/dL (0.55-1.02); LDH 360 U/L (84-246)
[2018-03-23] MEDS ORDERED: PT OWN MED DRAWER 7, Y5N ONE ×2 (09:44→21:43)
[2018-03-23] MEDS: LIDOCAINE 5% TOPICAL PATCH TP SCH (09:47)
[2018-03-23] MEDS: PANTOPRAZOLE 40 MG TABLET (FP) PO SCH (09:47)
[2018-03-23] MEDS: FOLIC ACID 1 MG TABLET (FP) PO SCH (09:47)
[2018-03-23] MEDS: APIXABAN 5 MG TABLET PO SCH ×2 (09:47→21:54)
[2018-03-23] MEDS: POLYETHYLENE GLYCOL 3350 119 GM BTL PO SCH ×2 (09:59→21:55)
--- NOTE | 2018-03-23 10:19 | PN ---
Progress Note, Physician Chief Complaint: Pt lying in bed, reports sob, on O2 via NC. reports she feels the same. Denies any chest pain, lightheadedness, n/v/d, or unilateral weakness. - Current Medication List Current Medications: Active Medications Acetaminophen (Tylenol -) 650 mg PO Q6H PRN PRN Reason: PAIN LEVEL 4 - 6 Last Admin: 03/22/18 17:57 Dose: 650 mg Apixaban (Eliquis -) 5 mg PO BID [facility] Last Admin: 03/23/18 09:47 Dose: 5 mg Atorvastatin Calcium (Lipitor -) 10 mg PO HS [facility] Last Admin: 03/22/18 21:20 Dose: 10 mg Docusate Sodium (Colace -) 100 mg PO TID [facility] Last Admin: 03/23/18 05:40 Dose: 100 mg Folic Acid (Folic Acid -) 1 mg PO DAILY [facility] Last Admin: 03/23/18 09:47 Dose: 1 mg Lidocaine (Lidoderm Patch -) 1 patch TP DAILY [facility] Last Admin: 03/23/18 09:47 Dose: 1 patch Metoprolol Tartrate (Lopressor -) 50 mg PO TID [facility] Last Admin: 03/23/18 05:44 Dose: 50 mg Miscellaneous (Lidoderm Patch Removal) 1 each [facility] DAILY@2200 [facility] Last Admin: 03/22/18 21:34 Dose: Not Given Oxycodone HCl (Roxicodone -) 5 mg PO Q6H PRN PRN Reason: PAIN LEVEL 6-10 Last Admin: 03/22/18 21:21 Dose: 5 mg Pantoprazole Sodium (Protonix -) 40 mg PO DAILY [facility] Last Admin: 03/23/18 09:47 Dose: 40 mg Polyethylene Glycol (Miralax (For Daily Use) -) 17 gm PO BID [facility] Last Admin: 03/22/18 21:34 Dose: 17 gm Potassium Chloride (K-Dur -) 40 meq PO ONCE ONE Stop: 03/23/18 10:46 - Objective Vital Signs: Vital Signs Temperature 98.1 F 03/23/18 06:00 Pulse Rate 113 H 03/23/18 06:00 Respiratory Rate 20 03/23/18 06:00 Blood Pressure 97/75 03/23/18 06:00 O2 Sat by Pulse Oximetry (%) 96 03/22/18 21:00 Constitutional: Yes: Calm, Thin Cardiovascular: Yes: Tachycardia, Pulse Irregular Respiratory: Yes: Regular, Diminished, On Nasal O2, Rales, SOB. No: Accessory Muscle Use, Tachypnea, Wheezes Gastrointestinal: Yes: WNL, Normal Bowel Sounds, Soft. No: Distention, Tenderness Edema: Yes Edema: LLE: 1+, RLE: 1+ Neurological: Yes: WNL, Alert, Oriented Psychiatric: Yes: WNL, Alert, Oriented Labs: CBC, BMP 03/23/18 06:00 03/23/18 06:00 INR, PTT INR 1.26 (0.82-1.09) H 03/22/18 08:15 Fibrinogen 383.0 mg/dL (238-498) 03/22/18 08:15 Problem List - Problems (1) Metastatic lung cancer (metastasis from lung to other site) Code(s): C34.90 - MALIGNANT NEOPLASM OF UNSP PART OF UNSP BRONCHUS OR LUNG Qualifiers: Laterality: left Qualified Code(s): C34.92 - Malignant neoplasm of unspecified part of left bronchus or lung (2) Pleural effusion Code(s): J90 - PLEURAL EFFUSION, NOT ELSEWHERE CLASSIFIED (3) SOB (shortness of breath) Code(s): R06.02 - SHORTNESS OF BREATH (4) Atrial fibrillation Code(s): I48.91 - UNSPECIFIED ATRIAL FIBRILLATION Qualifiers: Atrial fibrillation type: persistent Qualified Code(s): I48.1 - Persistent atrial fibrillation (5) HLD (hyperlipidemia) Code(s): E78.5 - HYPERLIPIDEMIA, UNSPECIFIED Qualifiers: Hyperlipidemia type: pure hypercholesterolemia Qualified Code(s): E78.00 - Pure hypercholesterolemia, unspecified; E78.0 - Pure hypercholesterolemia (6) HTN (hypertension) Code(s): I10 - ESSENTIAL (PRIMARY) HYPERTENSION Qualifiers: Hypertension type: essential hypertension Qualified Code(s): I10 - Essential (primary) hypertension (7) CHF (congestive heart failure) Code(s): I50.9 - HEART FAILURE, UNSPECIFIED Qualifiers: Heart failure type: diastolic Heart failure chronicity: acute on chronic Qualified Code(s): I50.33 - Acute on chronic diastolic (congestive) heart failure Assessment/Plan (1) Metastatic lung cancer (metastasis from lung to other site) Assessment/Plan: PETTY mass, right sided effusion with atelectasis on immunotherapy outpt oncology oncology following and discussed with pt and family poor prognosis Code(s): C34.90 - MALIGNANT NEOPLASM OF UNSP PART OF UNSP BRONCHUS OR LUNG Qualifiers: Laterality: left Qualified Code(s): C34.92 - Malignant neoplasm of unspecified part of left bronchus or lung (2) Pleural effusion Assessment/Plan: previous hx of left pleural effusion now w/ right sided effusion r/o malignant eff s/p thorcentesis await pathology will monitor Code(s): J90 - PLEURAL EFFUSION, NOT ELSEWHERE CLASSIFIED (3) SOB (shortness of breath) Assessment/Plan: as above O2 Code(s): R06.02 - SHORTNESS OF BREATH (4) Atrial fibrillation Assessment/Plan: rate controlled continue bb cardizem on hold eliquis cardiology following Code(s): I48.91 - UNSPECIFIED ATRIAL FIBRILLATION Qualifiers: Atrial fibrillation type: persistent Qualified Code(s): I48.1 - Persistent atrial fibrillation (5) HLD (hyperlipidemia) Assessment/Plan: chronic continue statin Code(s): E78.5 - HYPERLIPIDEMIA, UNSPECIFIED Qualifiers: Hyperlipidemia type: pure hypercholesterolemia Qualified Code(s): E78.00 - Pure hypercholesterolemia, unspecified; E78.0 - Pure hypercholesterolemia (6) HTN (hypertension) Assessment/Plan: controlled hypotensive today, s/p ivf bolus chest xray with worsened congestion post ivf bolus will monitor Code(s): I10 - ESSENTIAL (PRIMARY) HYPERTENSION Qualifiers: Hypertension type: essential hypertension Qualified Code(s): I10 - Essential (primary) hypertension (7) CHF (congestive heart failure) Assessment/Plan: acute on chronic, diastolic diuresis per cardiology daily weights cardiology following Code(s): I50.9 - HEART FAILURE, UNSPECIFIED Qualifiers: Heart failure type: diastolic Heart failure chronicity: acute on chronic Qualified Code(s): I50.33 - Acute on chronic diastolic (congestive) heart failure
[2018-03-23] MEDS ORDERED: POTASSIUM CHLORIDE TABS 20 MEQ TABLET.ER (FP) PO ONE (10:45)
[2018-03-23 11:26] LABS: PLEURAL FLUID LYMPHOCYTES 5 %; PLEURAL FLUID MONOCYTE 5 %; PLEURAL FLUID NEUTROPHIL 14 %
[2018-03-23 11:27] LABS: PLEURAL FLUID MACROPHAGES 47 %; PLEURAL FLUID MESOTHELIAL 29 %
[2018-03-23] MEDS: oxyCODONE HCL 5 MG TABLET PO PRN ×2 (11:38→21:54)
--- NOTE | 2018-03-23 12:08 | PN ---
Progress Note (short form) - Note Progress Note: No overall change in SOB. Remains mildly tachypneic on NC O2. No acute events overnight. Intake & Output 03/20/18 03/21/18 03/22/18 03/23/18 23:59 23:59 23:59 23:59 Intake Total 690 950 250 450 Balance 690 950 250 450 Last Vital Signs Temp Pulse Resp BP Pulse Ox 98.4 F 101 H 20 103/73 96 03/23/18 09:45 03/23/18 09:45 03/23/18 09:45 03/23/18 09:45 03/23/18 09:00 Active Medications Acetaminophen (Tylenol -) 650 mg PO Q6H PRN PRN Reason: PAIN LEVEL 4 - 6 Last Admin: 03/22/18 17:57 Dose: 650 mg Apixaban (Eliquis -) 5 mg PO BID [facility] Last Admin: 03/23/18 09:47 Dose: 5 mg Atorvastatin Calcium (Lipitor -) 10 mg PO HS [facility] Last Admin: 03/22/18 21:20 Dose: 10 mg Docusate Sodium (Colace -) 100 mg PO TID [facility] Last Admin: 03/23/18 05:40 Dose: 100 mg Folic Acid (Folic Acid -) 1 mg PO DAILY [facility] Last Admin: 03/23/18 09:47 Dose: 1 mg Lidocaine (Lidoderm Patch -) 1 patch TP DAILY [facility] Last Admin: 03/23/18 09:47 Dose: 1 patch Metoprolol Tartrate (Lopressor -) 50 mg PO TID [facility] Last Admin: 03/23/18 05:44 Dose: 50 mg Miscellaneous (Lidoderm Patch Removal) 1 each MC DAILY@2200 [facility] Last Admin: 03/22/18 21:34 Dose: Not Given Oxycodone HCl (Roxicodone -) 5 mg PO Q6H PRN PRN Reason: PAIN LEVEL 6-10 Last Admin: 03/23/18 11:38 Dose: 5 mg Pantoprazole Sodium (Protonix -) 40 mg PO DAILY [facility] Last Admin: 03/23/18 09:47 Dose: 40 mg Polyethylene Glycol (Miralax (For Daily Use) -) 17 gm PO BID [facility] Last Admin: 03/22/18 21:34 Dose: 17 gm Constitutional: Yes: Mildly tachypneic at rest Eyes: Yes: Conjunctiva Clear, EOM Intact HENT: Yes: Atraumatic, Normocephalic Neck: Yes: Supple, Trachea Midline Cardiovascular: Yes: Regular Rate and Rhythm Respiratory: Yes: Diminished at the bases, bilateral rhonchi ...Clubbing: No Gastrointestinal: Yes: Normal Bowel Sounds, Soft. No: Tenderness Edema: Yes Labs: Laboratory Results - last 24 hr 03/22/18 03/22/18 03/23/18 14:30 14:30 06:00 WBC 5.9 RBC 3.88 Hgb 14.7 Hct 42.5 MCV 109.6 H MCH 38.0 H MCHC 34.7 RDW 18.3 H Plt Count 298 MPV 7.6 D Neutrophils % 77.6 Lymphocytes % 8.7 D Monocytes % 11.6 H Eosinophils % 1.1 Basophils % 1.0 Sodium Potassium Chloride Carbon Dioxide Anion Gap BUN Creatinine Random Glucose Calcium Phosphorus Magnesium LD Total Pleural Fluid Source Pleural Pleural Color Yellow Pleural Appearance Hazy Pleural WBC 764 Pleural RBC 2451 Pleural Neutrophils 14 Pleural Lymphocytes 5 Pleural Monocytes 5 Pleural Macrophages 47 Pleural Mesothelial 29 Pleural Diff Comment Pleural Chloride No Result Required. Pleural Total Protein 2.035 Pleural Albumin 1 Pleural LDH 197.41 Pleural Glucose 93.987 Pleural Amylase 14.448 Pleural Cholesterol < 50 Pleural Triglycerides 16 Cancelled 03/23/18 06:00 WBC RBC Hgb Hct MCV MCH MCHC RDW Plt Count MPV Neutrophils % Lymphocytes % Monocytes % Eosinophils % Basophils % Sodium 140 Potassium 3.7 Chloride 99 Carbon Dioxide 35 H Anion Gap 6 L BUN 21 H Creatinine 0.8 Random Glucose 92 Calcium 8.2 L Phosphorus 3.0 Magnesium 1.9 LD Total 360 H Pleural Fluid Source Pleural Color Pleural Appearance Pleural WBC Pleural RBC Pleural Neutrophils Pleural Lymphocytes Pleural Monocytes Pleural Macrophages Pleural Mesothelial Pleural Diff Comment Pleural Chloride Pleural Total Protein Pleural Albumin Pleural LDH Pleural Glucose Pleural Amylase Pleural Cholesterol Pleural Triglycerides Assessment/Plan Decompensated CHF Metastatic NSCLC (Adenocarcinoma) Right Pleural Effusion Atrial Fibrillation Pulmonary HTN Hypercholesterolemia - Awaiting cytology - Lasix - AC - rate control - O2 to keep SpO2 >90% Dr Howell
[2018-03-23] MEDS: ACETAMINOPHEN 325 MG TABLET (FP) PO PRN (15:30)
--- NOTE | 2018-03-23 15:43 | PATH ---
Cytology Non-Gynecological Report Patient Name: VIRGILIO JEWELL [facility]. Rec. #: [id number] /Age/Gender: 1945 (Age: 72) / F Account: [id number] Location: [facility] MED/SURG Taken: 03/22/2018 Received: 03/22/2018 Reported: 03/23/2018 Physicians: Aravind Mendes M.D. Specimen(s) Received A: PLEURAL FLUID B: PLEURAL FLUID Clinical History Lung Adenocarcinoma Final Diagnosis A & B. PLEURAL FLUID, THORACENTESIS: SATISFACTORY FOR EVALUATION NO MALIGNANT CELLS IDENTIFIED. REACTIVE MESOTHELIAL CELLS, LYMPHOCYTES, AND NEUTROPHILS PRESENT. Electronically Signed Kia Fowler M.D. Gross Description A. Approximately 30 cc of yellow fluid received fixed in 50% alcohol. Two cytofunnels and one cellblock prepared. B. Approximately 1000 cc of yellow fluid received fresh. Two cytofunnels and one cellblock prepared.
--- NOTE | 2018-03-23 16:43 | PN ---
Progress Note (short form) - Note Progress Note: Patient seen and examined c/o weakness, tiredness s/p thoracentesis Last Vital Signs Temp Pulse Resp BP Pulse Ox 97.6 F 138 H 18 111/76 96 03/23/18 15:14 03/23/18 15:14 03/23/18 15:14 03/23/18 15:14 03/23/18 09:00 Cor: RSR, No murmurs, No gallops Lungs: decreased breathsounds at bases Abd: Soft, Normal bowel sounds, No organomegaly Ext:No significant edema Abnormal Lab Results 03/23/18 03/23/18 06:00 06:00 MCV 109.6 H MCH 38.0 H RDW 18.3 H Monocytes % 11.6 H Carbon Dioxide 35 H Anion Gap 6 L BUN 21 H Calcium 8.2 L LD Total 360 H Active Medications Generic Name Dose Route Start Last Admin Trade Name Freq PRN Reason Stop Dose Admin Acetaminophen 650 mg 03/22/18 15:52 03/23/18 15:30 Tylenol - PO 650 mg Q6H PRN Administration PAIN LEVEL 4 - 6 Alprazolam 0.25 mg 03/23/18 16:40 Xanax - PO Q8H PRN ANXIETY Apixaban 5 mg 03/22/18 22:00 03/23/18 09:47 Eliquis - PO 5 mg BID [facility] Administration Atorvastatin Calcium 10 mg 03/18/18 22:00 03/22/18 21:20 Lipitor - PO 10 mg HS [facility] Administration Docusate Sodium 100 mg 03/19/18 14:00 03/23/18 14:50 Colace - PO 100 mg TID [facility] Administration Folic Acid 1 mg 03/18/18 10:00 03/23/18 09:47 Folic Acid - PO 1 mg DAILY [facility] Administration Lidocaine 1 patch 03/18/18 11:45 03/23/18 09:47 Lidoderm Patch - TP 1 patch DAILY [facility] Administration Metoprolol Tartrate 50 mg 03/21/18 14:00 03/23/18 14:50 Lopressor - PO 50 mg TID [facility] Administration Miscellaneous 1 each 03/18/18 22:00 03/22/18 21:34 Lidoderm Patch Removal MC Not Given DAILY@2200 [facility] Oxycodone HCl 5 mg 03/22/18 15:51 03/23/18 11:38 Roxicodone - PO 5 mg Q6H PRN Administration PAIN LEVEL 6-10 Pantoprazole Sodium 40 mg 03/18/18 15:15 03/23/18 09:47 Protonix - PO 40 mg DAILY [facility] Administration Polyethylene Glycol 17 gm 03/19/18 12:30 03/23/18 09:59 Miralax (For Daily Use) - PO Not Given BID [facility] A/P 72 y/ o patient with metastatic adenocarinoma of lung s/p carbo/alimta with progression of disease. Now on nivolumab, 2nd line Admitted with worsening effusions, edema, ascites ? decompensated CHF ? malignant effusion s/p thoracentesis discussed overall poor prognosis with daughter DNR/DNI ongoing discussions regarding end of life care
[2018-03-23] MEDS: LIDOCAINE PATCH REMOVAL MC SCH (21:55)
[2018-03-23] MEDS: ALPRAZolam 0.25 MG TABLET PO PRN (21:55)
[2018-03-23] MEDS: ATORVASTATIN CA 10 MG TABLET (FP) PO SCH (21:55)
[2018-03-24] MEDS: METOPROLOL TARTRATE 50 MG TABLET (FP) PO SCH (06:01)
[2018-03-24] MEDS: DOCUSATE SODIUM 100 MG CAPSULE (FP) PO SCH ×3 (06:01→22:37)
[2018-03-24 07:59] LABS: BASO % 1.1 % (0-2.0); EOS % 1.2 % (0-4.5); HEMATOCRIT 45.5 % (32.4-45.2); HEMOGLOBIN 15.1 GM/dL (10.7-15.3); LYMPH % 8.3 % (8-40); MCH 35.8 pg (25.7-33.7); MCHC 33.1 g/dl (32.0-36.0); MEAN CELL VOLUME 108.2 fl (80-96); MEAN PLT VOLUME 7.9 fl (7.5-11.1); MONO % 11.7 % (3.8-10.2); NEUT % 77.7 % (42.8-82.8); PLATELET COUNT 317 K/MM3 (134-434); RBC 4.21 M/mm3 (3.60-5.2); RDW 17.8 % (11.6-15.6)
[2018-03-24 08:51] LABS: ANION GAP 7 (8-16); BLOOD UREA NITROGEN 25 mg/dL (7-18); CALCIUM 8.6 mg/dL (8.5-10.1); CHLORIDE 99 mmol/L (98-107); CO2 33 mmol/L (21-32); CREATININE 0.8 mg/dL (0.55-1.02); GLUCOSE,RANDOM 83 mg/dL (74-106); POTASSIUM 4.2 mmol/L (3.5-5.1); SODIUM 139 mmol/L (136-145)
[2018-03-24] MEDS ORDERED: PT OWN MED DRAWER 7, Y5N ONE ×3 (09:57→21:04)
[2018-03-24] MEDS: LIDOCAINE 5% TOPICAL PATCH TP SCH (09:59)
[2018-03-24] MEDS: FOLIC ACID 1 MG TABLET (FP) PO SCH (09:59)
[2018-03-24] MEDS: APIXABAN 5 MG TABLET PO SCH ×2 (09:59→22:36)
[2018-03-24] MEDS: PANTOPRAZOLE 40 MG TABLET (FP) PO SCH (09:59)
[2018-03-24] MEDS: POLYETHYLENE GLYCOL 3350 119 GM BTL PO SCH ×2 (10:00→22:36)
[2018-03-24] MEDS: oxyCODONE HCL 5 MG TABLET PO PRN ×2 (10:38→22:37)
--- NOTE | 2018-03-24 11:14 | PN ---
Progress Note, Physician Chief Complaint: Pt lying in bed, reports sob, on O2 via NC. reports she is not feeling well. Denies any chest pain, lightheadedness, n/v/d, or unilateral weakness. - Current Medication List Current Medications: Active Medications Acetaminophen (Tylenol -) 650 mg PO Q6H PRN PRN Reason: PAIN LEVEL 4 - 6 Last Admin: 03/23/18 15:30 Dose: 650 mg Alprazolam (Xanax -) 0.25 mg PO Q8H PRN PRN Reason: ANXIETY Last Admin: 03/23/18 21:55 Dose: 0.25 mg Apixaban (Eliquis -) 5 mg PO BID [facility] Last Admin: 03/24/18 09:59 Dose: 5 mg Atorvastatin Calcium (Lipitor -) 10 mg PO HS [facility] Last Admin: 03/23/18 21:55 Dose: 10 mg Docusate Sodium (Colace -) 100 mg PO TID [facility] Last Admin: 03/24/18 06:01 Dose: Not Given Folic Acid (Folic Acid -) 1 mg PO DAILY [facility] Last Admin: 03/24/18 09:59 Dose: 1 mg Lidocaine (Lidoderm Patch -) 1 patch TP DAILY [facility] Last Admin: 03/24/18 09:59 Dose: 1 patch Metoprolol Tartrate (Lopressor -) 50 mg PO TID [facility] Last Admin: 03/24/18 06:01 Dose: Not Given Miscellaneous (Lidoderm Patch Removal) 1 each MC DAILY@2200 [facility] Last Admin: 03/23/18 21:55 Dose: 1 each Oxycodone HCl (Roxicodone -) 5 mg PO Q6H PRN PRN Reason: PAIN LEVEL 6-10 Last Admin: 03/24/18 10:38 Dose: 5 mg Pantoprazole Sodium (Protonix -) 40 mg PO DAILY [facility] Last Admin: 03/24/18 09:59 Dose: 40 mg Polyethylene Glycol (Miralax (For Daily Use) -) 17 gm PO BID [facility] Last Admin: 03/24/18 10:00 Dose: Not Given - Objective Vital Signs: Vital Signs Temperature 98 F 03/24/18 10:02 Pulse Rate 77 03/24/18 10:02 Respiratory Rate 18 03/24/18 10:02 Blood Pressure 100/71 03/24/18 10:02 O2 Sat by Pulse Oximetry (%) 98 04/24/18 21:00 Constitutional: Yes: Thin Cardiovascular: Yes: Pulse Irregular Respiratory: Yes: Regular, Cough, Diminished, On Nasal O2, SOB. No: Accessory Muscle Use, Tachypnea, Wheezes Gastrointestinal: Yes: WNL, Normal Bowel Sounds, Soft. No: Distention, Tenderness Edema: Yes Edema: LLE: 1+, RLE: 1+ Neurological: Yes: WNL, Alert, Oriented Psychiatric: Yes: WNL, Alert, Oriented Labs: CBC, BMP 03/24/18 06:00 03/24/18 07:00 INR, PTT INR 1.26 (0.82-1.09) H 03/22/18 08:15 Fibrinogen 383.0 mg/dL (238-498) 03/22/18 08:15 Problem List - Problems (1) Metastatic lung cancer (metastasis from lung to other site) Code(s): C34.90 - MALIGNANT NEOPLASM OF UNSP PART OF UNSP BRONCHUS OR LUNG Qualifiers: Qualified Code(s): C34.92 - Malignant neoplasm of unspecified part of left bronchus or lung (2) Pleural effusion Code(s): J90 - PLEURAL EFFUSION, NOT ELSEWHERE CLASSIFIED (3) SOB (shortness of breath) Code(s): R06.02 - SHORTNESS OF BREATH (4) Atrial fibrillation Code(s): I48.91 - UNSPECIFIED ATRIAL FIBRILLATION Qualifiers: Qualified Code(s): I48.1 - Persistent atrial fibrillation (5) HLD (hyperlipidemia) Code(s): E78.5 - HYPERLIPIDEMIA, UNSPECIFIED Qualifiers: Qualified Code(s): E78.00 - Pure hypercholesterolemia, unspecified; E78.0 - Pure hypercholesterolemia (6) HTN (hypertension) Code(s): I10 - ESSENTIAL (PRIMARY) HYPERTENSION Qualifiers: Qualified Code(s): I10 - Essential (primary) hypertension (7) CHF (congestive heart failure) Code(s): I50.9 - HEART FAILURE, UNSPECIFIED Qualifiers: Qualified Code(s): I50.33 - Acute on chronic diastolic (congestive) heart failure Assessment/Plan (1) Metastatic lung cancer (metastasis from lung to other site) Assessment/Plan: PETTY mass, right sided effusion with atelectasis on immunotherapy outpt oncology oncology following and discussed with pt and family poor prognosis Code(s): C34.90 - MALIGNANT NEOPLASM OF UNSP PART OF UNSP BRONCHUS OR LUNG Qualifiers: Laterality: left Qualified Code(s): C34.92 - Malignant neoplasm of unspecified part of left bronchus or lung (2) Pleural effusion Assessment/Plan: previous hx of left pleural effusion now w/ right sided effusion s/p thorcentesis pathology neg Code(s): J90 - PLEURAL EFFUSION, NOT ELSEWHERE CLASSIFIED (3) SOB (shortness of breath) Assessment/Plan: as above O2 Code(s): R06.02 - SHORTNESS OF BREATH (4) Atrial fibrillation Assessment/Plan: rate controlled continue bb cardizem on hold eliquis cardiology following Code(s): I48.91 - UNSPECIFIED ATRIAL FIBRILLATION Qualifiers: Atrial fibrillation type: persistent Qualified Code(s): I48.1 - Persistent atrial fibrillation (5) HLD (hyperlipidemia) Assessment/Plan: chronic continue statin Code(s): E78.5 - HYPERLIPIDEMIA, UNSPECIFIED Qualifiers: Hyperlipidemia type: pure hypercholesterolemia Qualified Code(s): E78.00 - Pure hypercholesterolemia, unspecified; E78.0 - Pure hypercholesterolemia (6) HTN (hypertension) Assessment/Plan: controlled continue current management will monitor Code(s): I10 - ESSENTIAL (PRIMARY) HYPERTENSION Qualifiers: Hypertension type: essential hypertension Qualified Code(s): I10 - Essential (primary) hypertension (7) CHF (congestive heart failure) Assessment/Plan: acute on chronic, diastolic diuresis per cardiology daily weights cardiology following Code(s): I50.9 - HEART FAILURE, UNSPECIFIED Qualifiers: Heart failure type: diastolic Heart failure chronicity: acute on chronic Qualified Code(s): I50.33 - Acute on chronic diastolic (congestive) heart failure Dispo: awaiting SNF placement
--- NOTE | 2018-03-24 12:07 | PN ---
Progress Note, Physician History of Present Illness: Post thoracentesis, cytology negative for malignancy, Lopressor held for hypotension. - Current Medication List Current Medications: Active Medications Acetaminophen (Tylenol -) 650 mg PO Q6H PRN PRN Reason: PAIN LEVEL 4 - 6 Last Admin: 03/23/18 15:30 Dose: 650 mg Alprazolam (Xanax -) 0.25 mg PO Q8H PRN PRN Reason: ANXIETY Last Admin: 03/23/18 21:55 Dose: 0.25 mg Apixaban (Eliquis -) 5 mg PO BID [facility] Last Admin: 03/24/18 09:59 Dose: 5 mg Atorvastatin Calcium (Lipitor -) 10 mg PO HS [facility] Last Admin: 03/23/18 21:55 Dose: 10 mg Docusate Sodium (Colace -) 100 mg PO TID [facility] Last Admin: 03/24/18 06:01 Dose: Not Given Folic Acid (Folic Acid -) 1 mg PO DAILY [facility] Last Admin: 03/24/18 09:59 Dose: 1 mg Lidocaine (Lidoderm Patch -) 1 patch TP DAILY [facility] Last Admin: 03/24/18 09:59 Dose: 1 patch Metoprolol Tartrate (Lopressor -) 50 mg PO TID [facility] Last Admin: 03/24/18 06:01 Dose: Not Given Miscellaneous (Lidoderm Patch Removal) 1 each MC DAILY@2200 [facility] Last Admin: 03/23/18 21:55 Dose: 1 each Oxycodone HCl (Roxicodone -) 5 mg PO Q6H PRN PRN Reason: PAIN LEVEL 6-10 Last Admin: 03/24/18 10:38 Dose: 5 mg Pantoprazole Sodium (Protonix -) 40 mg PO DAILY [facility] Last Admin: 03/24/18 09:59 Dose: 40 mg Polyethylene Glycol (Miralax (For Daily Use) -) 17 gm PO BID [facility] Last Admin: 03/24/18 10:00 Dose: Not Given - Objective Vital Signs: Vital Signs Temperature 98 F 03/24/18 10:02 Pulse Rate 77 03/24/18 10:02 Respiratory Rate 18 03/24/18 10:02 Blood Pressure 100/71 03/24/18 10:02 O2 Sat by Pulse Oximetry (%) 98 03/23/18 21:00 Constitutional: Yes: No Distress, Calm, Thin Neck: Yes: Supple Cardiovascular: Yes: Pulse Irregular Respiratory: Yes: Regular, Diminished, On Nasal O2 Gastrointestinal: Yes: Normal Bowel Sounds, Soft Edema: No Labs: CBC, BMP 03/24/18 06:00 03/24/18 07:00 INR, PTT INR 1.26 (0.82-1.09) H 03/22/18 08:15 Fibrinogen 383.0 mg/dL (238-498) 03/22/18 08:15 Problem List - Problems (1) Acute on chronic diastolic (congestive) heart failure Code(s): I50.33 - ACUTE ON CHRONIC DIASTOLIC (CONGESTIVE) HEART FAILURE (2) Severe tricuspid regurgitation by prior echocardiogram Code(s): I07.1 - RHEUMATIC TRICUSPID INSUFFICIENCY (3) Pleural effusion Code(s): J90 - PLEURAL EFFUSION, NOT ELSEWHERE CLASSIFIED (4) SOB (shortness of breath) Code(s): R06.02 - SHORTNESS OF BREATH (5) Atrial fibrillation Code(s): I48.91 - UNSPECIFIED ATRIAL FIBRILLATION Qualifiers: Atrial fibrillation type: persistent Qualified Code(s): I48.1 - Persistent atrial fibrillation (6) Cerebrovascular disease Code(s): I67.9 - CEREBROVASCULAR DISEASE, UNSPECIFIED (7) HLD (hyperlipidemia) Code(s): E78.5 - HYPERLIPIDEMIA, UNSPECIFIED Qualifiers: Hyperlipidemia type: pure hypercholesterolemia Qualified Code(s): E78.00 - Pure hypercholesterolemia, unspecified; E78.0 - Pure hypercholesterolemia (8) Lung cancer Code(s): C34.90 - MALIGNANT NEOPLASM OF UNSP PART OF UNSP BRONCHUS OR LUNG (9) HTN (hypertension) Code(s): I10 - ESSENTIAL (PRIMARY) HYPERTENSION Qualifiers: Hypertension type: essential hypertension Qualified Code(s): I10 - Essential (primary) hypertension Assessment/Plan 1. Acute on chronic diastolic Class I-II [place] [employer] classification left ventricular failure, resolved, clinically euvolemic to hypovolemic 2. Persistent atrial fibrillation with Eliquis held for diagnostic thoracentesis 3. CAD angina pectoris 4. Severe TR with moderate to severe degree of pulmonary hypertension 5. Right pleural effusion 6. Metastatic NSCLC (Adenocarcinoma) with recurrent left pleural effusion with pleural nodules/supra-hilar lung mass post left VATS/pleural biopsy/pleur-x placement 7. History of cerebrovascular disease 8. HTN/HCVD 9. Hyperlipidemia PLAN: 1. Resume low dose Lasix as hemodynamics tolerate 2. Continue Eliquis 5 bid 3. Hold Cardizem CD for now 4. Decrease Lopressor 25 bid as hemodynamics tolerate 5. Continue Lipitor 10 qhs 6. PT as tolerated
--- NOTE | 2018-03-24 12:45 | PN ---
Progress Note (short form) - Note Progress Note: PULMONARY s/p right thoracentesis with pleural fluid analysis consistent with transudate. Cytology without malignant cells. Last Vital Signs Temp Pulse Resp BP Pulse Ox 98 F 77 18 100/71 98 03/24/18 10:02 03/24/18 10:02 03/24/18 10:02 03/24/18 10:02 03/23/18 21:00 Gen: NAD at rest Heart: RRR Lung: decreased breath sounds at the bases Abd: soft, nontender Ext: no edema CBC, BMP 03/24/18 06:00 03/24/18 07:00 Active Medications Acetaminophen (Tylenol -) 650 mg PO Q6H PRN PRN Reason: PAIN LEVEL 4 - 6 Last Admin: 03/23/18 15:30 Dose: 650 mg Alprazolam (Xanax -) 0.25 mg PO Q8H PRN PRN Reason: ANXIETY Last Admin: 03/23/18 21:55 Dose: 0.25 mg Apixaban (Eliquis -) 5 mg PO BID [facility] Last Admin: 03/24/18 09:59 Dose: 5 mg Atorvastatin Calcium (Lipitor -) 10 mg PO HS [facility] Last Admin: 03/23/18 21:55 Dose: 10 mg Docusate Sodium (Colace -) 100 mg PO TID [facility] Last Admin: 03/24/18 06:01 Dose: Not Given Folic Acid (Folic Acid -) 1 mg PO DAILY [facility] Last Admin: 03/24/18 09:59 Dose: 1 mg Lidocaine (Lidoderm Patch -) 1 patch TP DAILY [facility] Last Admin: 03/24/18 09:59 Dose: 1 patch Metoprolol Tartrate (Lopressor -) 25 mg PO BID [facility] Miscellaneous (Lidoderm Patch Removal) 1 each MC DAILY@2200 [facility] Last Admin: 03/23/18 21:55 Dose: 1 each Oxycodone HCl (Roxicodone -) 5 mg PO Q6H PRN PRN Reason: PAIN LEVEL 6-10 Last Admin: 03/24/18 10:38 Dose: 5 mg Pantoprazole Sodium (Protonix -) 40 mg PO DAILY [facility] Last Admin: 03/24/18 09:59 Dose: 40 mg Polyethylene Glycol (Miralax (For Daily Use) -) 17 gm PO BID [facility] Last Admin: 03/24/18 10:00 Dose: Not Given A/P Acute LV Diastolic Heart Failure Metastatic NSCLC (Adenocarcinoma) Right Pleural Effusion Atrial Fibrillation Pulmonary HTN Hypercholesterolemia - continue lasix, beta gregory - monitor urine output, creatinine - rate control - continue anticoagulation - O2 to keep SpO2 >90%
--- NOTE | 2018-03-24 12:50 | PN ---
Progress Note (short form) - Note Progress Note: Patient seen and examined Discussed status with daughter at bedside Poor performance status Remains short of breath with difficulty breathing Essentially bedridden with performance ECOG-4 Last Vital Signs Temp Pulse Resp BP Pulse Ox 98 F 77 18 100/71 98 03/24/18 10:02 03/24/18 10:02 03/24/18 10:02 03/24/18 10:02 03/23/18 21:00 Complains of pain - 7/10 scale especially of lower back Diminished breath sounds bilaterally Soft -abdomen Cor-RSR No significant LE edema or calf tenderness CBC, BMP 03/24/18 06:00 03/24/18 07:00 Current Medications Generic Name Dose Route Start Last Admin Trade Name Freq PRN Reason Stop Dose Admin Acetaminophen 650 mg 03/22/18 15:52 03/23/18 15:30 Tylenol - PO 650 mg Q6H PRN Administration PAIN LEVEL 4 - 6 Alprazolam 0.25 mg 03/23/18 16:40 03/23/18 21:55 Xanax - PO 0.25 mg Q8H PRN Administration ANXIETY Apixaban 5 mg 03/22/18 22:00 03/24/18 09:59 Eliquis - PO 5 mg BID MANDIE Administration Atorvastatin Calcium 10 mg 03/18/18 22:00 03/23/18 21:55 Lipitor - PO 10 mg HS M[facility]IE Administration Docusate Sodium 100 mg 03/19/18 14:00 03/24/18 06:01 Colace - PO Not Given TID MANDIE Folic Acid 1 mg 03/18/18 10:00 03/24/18 09:59 Folic Acid - PO 1 mg DAILY [facility] Administration Lidocaine 1 patch 03/18/18 11:45 03/24/18 09:59 Lidoderm Patch - TP 1 patch DAILY [facility] Administration Metoprolol Tartrate 25 mg 03/24/18 22:00 Lopressor - PO BID [facility] Miscellaneous 1 each 03/18/18 22:00 03/23/18 21:55 Lidoderm Patch Removal MC 1 each DAILY@2200 [facility] Administration Oxycodone HCl 5 mg 03/22/18 15:51 03/24/18 10:38 Roxicodone - PO 5 mg Q6H PRN Administration PAIN LEVEL 6-10 Pantoprazole Sodium 40 mg 03/18/18 15:15 03/24/18 09:59 Protonix - PO 40 mg DAILY [facility] Administration Polyethylene Glycol 17 gm 03/19/18 12:30 03/24/18 10:00 Miralax (For Daily Use) - PO Not Given BID MANDIE Impression Lung ca with progress on second line therapy with Nivolumab S/P thoracentesis DNR/DNI Plan: Increase oxycodone to q4h prn breakthrough P.T.evaluation.
[2018-03-24] MEDS ORDERED: SIMETHICONE 80 MG TAB.CHEW (FP) PO PRN (14:25)
[2018-03-24] MEDS: ATORVASTATIN CA 10 MG TABLET (FP) PO SCH (22:36)
[2018-03-24] MEDS: METOPROLOL TARTRATE 25 MG TABLET (FP) PO SCH (22:37)
[2018-03-24] MEDS: LIDOCAINE PATCH REMOVAL MC SCH (22:38)
[2018-03-25] MEDS: oxyCODONE HCL 5 MG TABLET PO PRN ×2 (04:04→10:59)
[2018-03-25] MEDS ORDERED: morphine SULFATE 4 MG/ML VIAL IVPUSH ONE (04:35)
[2018-03-25] MEDS: ALPRAZolam 0.25 MG TABLET PO PRN ×2 (04:38→14:36)
[2018-03-25] MEDS: DOCUSATE SODIUM 100 MG CAPSULE (FP) PO SCH ×3 (06:08→21:12)
[2018-03-25 07:44] LABS: ANION GAP 9 (8-16); BLOOD UREA NITROGEN 27 mg/dL (7-18); CALCIUM 8.8 mg/dL (8.5-10.1); CHLORIDE 97 mmol/L (98-107); CO2 33 mmol/L (21-32); CREATININE 0.9 mg/dL (0.55-1.02); GLUCOSE,RANDOM 98 mg/dL (74-106); POTASSIUM 4.4 mmol/L (3.5-5.1); SODIUM 139 mmol/L (136-145)
[2018-03-25 07:59] LABS: BASO % 1.2 % (0-2.0); EOS % 0.7 % (0-4.5); HEMATOCRIT 43.7 % (32.4-45.2); HEMOGLOBIN 15.5 GM/dL (10.7-15.3); LYMPH % 8.6 % (8-40); MCHC 35.4 g/dl (32.0-36.0); MEAN CELL VOLUME 110.1 fl (80-96); MEAN PLT VOLUME 8.1 fl (7.5-11.1); MONO % 12.3 % (3.8-10.2); NEUT % 77.2 % (42.8-82.8); PLATELET COUNT 293 K/MM3 (134-434); RBC 3.97 M/mm3 (3.60-5.2); WHITE BLOOD COUNT 6.7 K/mm3 (4.0-10.0)
--- NOTE | 2018-03-25 10:12 | PN ---
Progress Note (short form) - Note Progress Note: No overall change in SOB/M[place]ILLA. Remains mildly tachypneic on NC O2. No hemoptysis. (+) LBP. Intake & Output 03/22/18 03/23/18 03/24/18 03/25/18 23:59 23:59 23:59 23:59 Intake Total 250 690 360 240 Balance 250 690 360 240 Last Vital Signs Temp Pulse Resp BP Pulse Ox 97.4 F L 82 18 106/68 98 03/25/18 05:00 03/25/18 05:00 03/25/18 05:00 03/25/18 05:00 03/24/18 21:00 Active Medications Acetaminophen (Tylenol -) 650 mg PO Q6H PRN PRN Reason: PAIN LEVEL 4 - 6 Last Admin: 03/23/18 15:30 Dose: 650 mg Alprazolam (Xanax -) 0.25 mg PO Q8H PRN PRN Reason: ANXIETY Last Admin: 03/25/18 04:38 Dose: 0.25 mg Apixaban (Eliquis -) 5 mg PO BID [facility] Last Admin: 03/24/18 22:36 Dose: 5 mg Atorvastatin Calcium (Lipitor -) 10 mg PO HS [facility] Last Admin: 03/24/18 22:36 Dose: 10 mg Docusate Sodium (Colace -) 100 mg PO TID [facility] Last Admin: 03/25/18 06:08 Dose: Not Given Folic Acid (Folic Acid -) 1 mg PO DAILY [facility] Last Admin: 03/24/18 09:59 Dose: 1 mg Lidocaine (Lidoderm Patch -) 1 patch TP DAILY [facility] Last Admin: 03/24/18 09:59 Dose: 1 patch Metoprolol Tartrate (Lopressor -) 25 mg PO BID [facility] Last Admin: 03/24/18 22:37 Dose: 25 mg Miscellaneous (Lidoderm Patch Removal) 1 each MC DAILY@2200 [facility] Last Admin: 03/24/18 22:38 Dose: 1 each Oxycodone HCl (Roxicodone -) 5 mg PO Q4H PRN PRN Reason: PAIN LEVEL 7 - 10 Last Admin: 03/25/18 04:04 Dose: 5 mg Pantoprazole Sodium (Protonix -) 40 mg PO DAILY [facility] Last Admin: 03/24/18 09:59 Dose: 40 mg Polyethylene Glycol (Miralax (For Daily Use) -) 17 gm PO BID [facility] Last Admin: 03/24/18 22:36 Dose: Not Given Simethicone (Mylicon -) 80 mg PO Q6H PRN PRN Reason: GAS Last Admin: 03/24/18 22:37 Dose: 80 mg Constitutional: Yes: Mildly tachypneic at rest Eyes: Yes: Conjunctiva Clear, EOM Intact HENT: Yes: Atraumatic, Normocephalic Neck: Yes: Supple, Trachea Midline Cardiovascular: Yes: Regular Rate and Rhythm Respiratory: Yes: Diminished at the bases, bilateral rhonchi ...Clubbing: No Gastrointestinal: Yes: Normal Bowel Sounds, Soft. No: Tenderness Edema: Yes Labs: Laboratory Results - last 24 hr 03/25/18 03/25/18 06:00 06:00 WBC 6.7 RBC 3.97 Hgb 15.5 H Hct 43.7 MCV 110.1 H MCH 39.0 H MCHC 35.4 RDW 18.0 H Neutrophils % 77.2 Lymphocytes % 8.6 Monocytes % 12.3 H Eosinophils % 0.7 Basophils % 1.2 Sodium 139 Potassium 4.4 Chloride 97 L Carbon Dioxide 33 H Anion Gap 9 BUN 27 H Creatinine 0.9 Random Glucose 98 Calcium 8.8 Assessment/Plan Decompensated CHF Metastatic NSCLC (Adenocarcinoma) Right Pleural Effusion Atrial Fibrillation Pulmonary HTN Hypercholesterolemia - Pain control - Lasix - rate control - O2 to keep SpO2 >90% - DNR/DNI Dr Howell
[2018-03-25 10:21] LABS: PLATELET ESTIMATE ADEQUATE
[2018-03-25] MEDS ORDERED: PT OWN MED DRAWER 7, Y5N ONE (10:44)
[2018-03-25] MEDS: METOPROLOL TARTRATE 25 MG TABLET (FP) PO SCH ×3 (10:58→21:13)
[2018-03-25] MEDS: POLYETHYLENE GLYCOL 3350 119 GM BTL PO SCH ×2 (11:00→21:13)
[2018-03-25] MEDS: LIDOCAINE 5% TOPICAL PATCH TP SCH (11:00)
[2018-03-25] MEDS: PANTOPRAZOLE 40 MG TABLET (FP) PO SCH (11:00)
[2018-03-25] MEDS: APIXABAN 5 MG TABLET PO SCH ×2 (11:00→21:12)
[2018-03-25] MEDS: FOLIC ACID 1 MG TABLET (FP) PO SCH (11:00)
--- NOTE | 2018-03-25 11:10 | PN ---
Progress Note, Physician History of Present Illness: Post thoracentesis, cytology negative for malignancy, Lopressor held for hypotension, now in rapid afib. - Current Medication List Current Medications: Active Medications Acetaminophen (Tylenol -) 650 mg PO Q6H PRN PRN Reason: PAIN LEVEL 4 - 6 Last Admin: 03/23/18 15:30 Dose: 650 mg Alprazolam (Xanax -) 0.25 mg PO Q8H PRN PRN Reason: ANXIETY Last Admin: 03/25/18 04:38 Dose: 0.25 mg Apixaban (Eliquis -) 5 mg PO BID [facility] Last Admin: 03/25/18 11:00 Dose: 5 mg Atorvastatin Calcium (Lipitor -) 10 mg PO HS [facility] Last Admin: 03/24/18 22:36 Dose: 10 mg Docusate Sodium (Colace -) 100 mg PO TID [facility] Last Admin: 03/25/18 06:08 Dose: Not Given Folic Acid (Folic Acid -) 1 mg PO DAILY [facility] Last Admin: 03/25/18 11:00 Dose: 1 mg Lidocaine (Lidoderm Patch -) 1 patch TP DAILY [facility] Last Admin: 03/25/18 11:00 Dose: 1 patch Metoprolol Tartrate (Lopressor -) 25 mg PO BID [facility] Last Admin: 03/24/18 22:37 Dose: 25 mg Miscellaneous (Lidoderm Patch Removal) 1 each MC DAILY@2200 [facility] Last Admin: 03/24/18 22:38 Dose: 1 each Oxycodone HCl (Roxicodone -) 5 mg PO Q4H PRN PRN Reason: PAIN LEVEL 7 - 10 Last Admin: 03/25/18 10:59 Dose: 5 mg Pantoprazole Sodium (Protonix -) 40 mg PO DAILY [facility] Last Admin: 03/25/18 11:00 Dose: 40 mg Polyethylene Glycol (Miralax (For Daily Use) -) 17 gm PO BID [facility] Last Admin: 03/25/18 11:00 Dose: Not Given Simethicone (Mylicon -) 80 mg PO Q6H PRN PRN Reason: GAS Last Admin: 03/24/18 22:37 Dose: 80 mg - Objective Vital Signs: Vital Signs Temperature 97.4 F L 03/25/18 05:00 Pulse Rate 82 03/25/18 05:00 Respiratory Rate 18 03/25/18 05:00 Blood Pressure 106/68 03/25/18 05:00 O2 Sat by Pulse Oximetry (%) 98 03/24/18 21:00 Constitutional: Yes: No Distress, Calm, Thin Neck: Yes: Supple Cardiovascular: Yes: Tachycardia, Pulse Irregular, Murmur (2/6 SM) Respiratory: Yes: Regular, Diminished, On Nasal O2 Gastrointestinal: Yes: Normal Bowel Sounds, Soft Edema: No Labs: CBC, BMP 03/25/18 06:00 03/25/18 06:00 INR, PTT INR 1.26 (0.82-1.09) H 03/22/18 08:15 Fibrinogen 383.0 mg/dL (238-498) 03/22/18 08:15 Problem List - Problems (1) Acute on chronic diastolic (congestive) heart failure Code(s): I50.33 - ACUTE ON CHRONIC DIASTOLIC (CONGESTIVE) HEART FAILURE (2) Severe tricuspid regurgitation by prior echocardiogram Code(s): I07.1 - RHEUMATIC TRICUSPID INSUFFICIENCY (3) Pleural effusion Code(s): J90 - PLEURAL EFFUSION, NOT ELSEWHERE CLASSIFIED (4) SOB (shortness of breath) Code(s): R06.02 - SHORTNESS OF BREATH (5) Atrial fibrillation Code(s): I48.91 - UNSPECIFIED ATRIAL FIBRILLATION Qualifiers: Atrial fibrillation type: persistent Qualified Code(s): I48.1 - Persistent atrial fibrillation (6) Cerebrovascular disease Code(s): I67.9 - CEREBROVASCULAR DISEASE, UNSPECIFIED (7) HLD (hyperlipidemia) Code(s): E78.5 - HYPERLIPIDEMIA, UNSPECIFIED Qualifiers: Hyperlipidemia type: pure hypercholesterolemia Qualified Code(s): E78.00 - Pure hypercholesterolemia, unspecified; E78.0 - Pure hypercholesterolemia (8) Lung cancer Code(s): C34.90 - MALIGNANT NEOPLASM OF UNSP PART OF UNSP BRONCHUS OR LUNG (9) HTN (hypertension) Code(s): I10 - ESSENTIAL (PRIMARY) HYPERTENSION Qualifiers: Hypertension type: essential hypertension Qualified Code(s): I10 - Essential (primary) hypertension Assessment/Plan 1. Acute on chronic diastolic Class I-II [place] [employer] classification left ventricular failure, resolved, clinically euvolemic to hypovolemic 2. Persistent atrial fibrillation on Eliquis 3. CAD angina pectoris 4. Severe TR with moderate to severe degree of pulmonary hypertension 5. Right pleural effusion 6. Metastatic NSCLC (Adenocarcinoma) with recurrent left pleural effusion with pleural nodules/supra-hilar lung mass post left VATS/pleural biopsy/pleur-x placement 7. History of cerebrovascular disease 8. HTN/HCVD 9. Hyperlipidemia PLAN: 1. Resume low dose Lasix as hemodynamics tolerate 2. Continue Eliquis 5 bid 3. Hold Cardizem CD for now 4. Reinitiate Lopressor 25 bid as hemodynamics tolerate 5. Continue Lipitor 10 qhs 6. PT as tolerated
--- NOTE | 2018-03-25 11:14 | PN ---
Progress Note, Physician Chief Complaint: Pt lying in bed, reports sob, on O2 via NC. appears same. Denies any chest pain , lightheadedness, n/v/d, or unilateral weakness. - Current Medication List Current Medications: Active Medications Acetaminophen (Tylenol -) 650 mg PO Q6H PRN PRN Reason: PAIN LEVEL 4 - 6 Last Admin: 03/23/18 15:30 Dose: 650 mg Alprazolam (Xanax -) 0.25 mg PO Q8H PRN PRN Reason: ANXIETY Last Admin: 03/25/18 04:38 Dose: 0.25 mg Apixaban (Eliquis -) 5 mg PO BID [facility] Last Admin: 03/25/18 11:00 Dose: 5 mg Atorvastatin Calcium (Lipitor -) 10 mg PO HS [facility] Last Admin: 03/24/18 22:36 Dose: 10 mg Docusate Sodium (Colace -) 100 mg PO TID [facility] Last Admin: 03/25/18 06:08 Dose: Not Given Folic Acid (Folic Acid -) 1 mg PO DAILY [facility] Last Admin: 03/25/18 11:00 Dose: 1 mg Lidocaine (Lidoderm Patch -) 1 patch TP DAILY [facility] Last Admin: 03/25/18 11:00 Dose: 1 patch Metoprolol Tartrate (Lopressor -) 25 mg PO BID [facility] Last Admin: 03/24/18 22:37 Dose: 25 mg Miscellaneous (Lidoderm Patch Removal) 1 each MC DAILY@2200 [facility] Last Admin: 03/24/18 22:38 Dose: 1 each Oxycodone HCl (Roxicodone -) 5 mg PO Q4H PRN PRN Reason: PAIN LEVEL 7 - 10 Last Admin: 03/25/18 10:59 Dose: 5 mg Pantoprazole Sodium (Protonix -) 40 mg PO DAILY [facility] Last Admin: 03/25/18 11:00 Dose: 40 mg Polyethylene Glycol (Miralax (For Daily Use) -) 17 gm PO BID [facility] Last Admin: 03/25/18 11:00 Dose: Not Given Simethicone (Mylicon -) 80 mg PO Q6H PRN PRN Reason: GAS Last Admin: 03/24/18 22:37 Dose: 80 mg - Objective Vital Signs: Vital Signs Temperature 97.4 F L 03/25/18 05:00 Pulse Rate 82 03/25/18 05:00 Respiratory Rate 18 03/25/18 05:00 Blood Pressure 106/68 03/25/18 05:00 O2 Sat by Pulse Oximetry (%) 98 03/24/18 21:00 Constitutional: Yes: Calm, Thin Cardiovascular: Yes: Tachycardia, Pulse Irregular Respiratory: Yes: Diminished, On Nasal O2, Rales, SOB. No: Tachypnea, Wheezes Gastrointestinal: Yes: WNL, Normal Bowel Sounds, Soft. No: Distention, Tenderness Genitourinary: Yes: WNL Edema: Yes Edema: LLE: Trace, RLE: Trace Neurological: Yes: WNL, Alert, Oriented, Lethargy (mild) Psychiatric: Yes: WNL, Alert, Oriented Labs: CBC, BMP 03/25/18 06:00 03/25/18 06:00 INR, PTT INR 1.26 (0.82-1.09) H 03/22/18 08:15 Fibrinogen 383.0 mg/dL (238-498) 03/22/18 08:15 Problem List - Problems (1) Metastatic lung cancer (metastasis from lung to other site) Code(s): C34.90 - MALIGNANT NEOPLASM OF UNSP PART OF UNSP BRONCHUS OR LUNG Qualifiers: Laterality: left Qualified Code(s): C34.92 - Malignant neoplasm of unspecified part of left bronchus or lung (2) Pleural effusion Code(s): J90 - PLEURAL EFFUSION, NOT ELSEWHERE CLASSIFIED (3) SOB (shortness of breath) Code(s): R06.02 - SHORTNESS OF BREATH (4) Atrial fibrillation Code(s): I48.91 - UNSPECIFIED ATRIAL FIBRILLATION Qualifiers: Atrial fibrillation type: persistent Qualified Code(s): I48.1 - Persistent atrial fibrillation (5) HLD (hyperlipidemia) Code(s): E78.5 - HYPERLIPIDEMIA, UNSPECIFIED Qualifiers: Hyperlipidemia type: pure hypercholesterolemia Qualified Code(s): E78.00 - Pure hypercholesterolemia, unspecified; E78.0 - Pure hypercholesterolemia (6) HTN (hypertension) Code(s): I10 - ESSENTIAL (PRIMARY) HYPERTENSION Qualifiers: Hypertension type: essential hypertension Qualified Code(s): I10 - Essential (primary) hypertension (7) CHF (congestive heart failure) Code(s): I50.9 - HEART FAILURE, UNSPECIFIED Qualifiers: Heart failure type: diastolic Heart failure chronicity: acute on chronic Qualified Code(s): I50.33 - Acute on chronic diastolic (congestive) heart failure Assessment/Plan (1) Metastatic lung cancer (metastasis from lung to other site) Assessment/Plan: PETTY mass, right sided effusion with atelectasis on immunotherapy outpt oncology oncology following and discussed with pt and family poor prognosis pt status slowly declining, w/ reduced po intake, and exercise tolerance Code(s): C34.90 - MALIGNANT NEOPLASM OF UNSP PART OF UNSP BRONCHUS OR LUNG Qualifiers: Laterality: left Qualified Code(s): C34.92 - Malignant neoplasm of unspecified part of left bronchus or lung (2) Pleural effusion Assessment/Plan: previous hx of left pleural effusion now w/ right sided effusion s/p thorcentesis pathology neg IS when awake PT as tolerated Code(s): J90 - PLEURAL EFFUSION, NOT ELSEWHERE CLASSIFIED (3) SOB (shortness of breath) Assessment/Plan: as above O2 Code(s): R06.02 - SHORTNESS OF BREATH (4) Atrial fibrillation Assessment/Plan: in rapid afib this am after holding bb in the setting of hypotension metoprolol bid per parameters cardizem on hold eliquis cardiology following Code(s): I48.91 - UNSPECIFIED ATRIAL FIBRILLATION Qualifiers: Atrial fibrillation type: persistent Qualified Code(s): I48.1 - Persistent atrial fibrillation (5) HLD (hyperlipidemia) Assessment/Plan: chronic continue statin Code(s): E78.5 - HYPERLIPIDEMIA, UNSPECIFIED Qualifiers: Hyperlipidemia type: pure hypercholesterolemia Qualified Code(s): E78.00 - Pure hypercholesterolemia, unspecified; E78.0 - Pure hypercholesterolemia (6) HTN (hypertension) Assessment/Plan: controlled, hypotensive continue current management per parameters will monitor Code(s): I10 - ESSENTIAL (PRIMARY) HYPERTENSION Qualifiers: Hypertension type: essential hypertension Qualified Code(s): I10 - Essential (primary) hypertension (7) CHF (congestive heart failure) Assessment/Plan: acute on chronic, diastolic diuresis per cardiology lasix on hold in the setting of hypotension daily weights cardiology following Code(s): I50.9 - HEART FAILURE, UNSPECIFIED Qualifiers: Heart failure type: diastolic Heart failure chronicity: acute on chronic Qualified Code(s): I50.33 - Acute on chronic diastolic (congestive) heart failure Dispo: SNF if medically stable, palliative team following
[2018-03-25] MEDS ORDERED: morphine CARPU-JECT 2 MG/1 ML DISP.SYRIN IVPUSH PRN (14:50)
[2018-03-25] MEDS ORDERED: oxyCODONE HCL 5 MG TABLET PO PRN (14:51)
[2018-03-25] MEDS: morphine SULFATE 4 MG/ML VIAL IVPUSH PRN (16:24)
[2018-03-25] MEDS: ATORVASTATIN CA 10 MG TABLET (FP) PO SCH (21:13)
[2018-03-25] MEDS: LIDOCAINE PATCH REMOVAL MC SCH (21:13)
--- NOTE | 2018-03-25 23:48 | PN ---
Progress Note (short form) - Note Progress Note: Patient seen and examined resting Last Vital Signs Temp Pulse Resp BP Pulse Ox 97.9 F 93 H 18 117/78 98 03/25/18 21:10 03/25/18 21:10 03/25/18 21:10 03/25/18 21:10 03/24/18 21:00 Abnormal Lab Results 03/25/18 03/25/18 06:00 06:00 Hgb 15.5 H MCV 110.1 H MCH 39.0 H RDW 18.0 H Monocytes % 12.3 H Chloride 97 L Carbon Dioxide 33 H BUN 27 H Active Medications Generic Name Dose Route Start Last Admin Trade Name Freq PRN Reason Stop Dose Admin Acetaminophen 650 mg 03/22/18 15:52 03/23/18 15:30 Tylenol - PO 650 mg Q6H PRN Administration PAIN LEVEL 4 - 6 Apixaban 5 mg 03/22/18 22:00 03/25/18 21:12 Eliquis - PO Not Given BID MANDIE Atorvastatin Calcium 10 mg 03/18/18 22:00 03/25/18 21:13 Lipitor - PO Not Given HS [facility]IE Docusate Sodium 100 mg 03/19/18 14:00 03/25/18 21:12 Colace - PO Not Given TID [facility] Folic Acid 1 mg 03/18/18 10:00 03/25/18 11:00 Folic Acid - PO 1 mg DAILY [facility] Administration Lidocaine 1 patch 03/18/18 11:45 03/25/18 11:00 Lidoderm Patch - TP 1 patch DAILY [facility] Administration Lorazepam 1 mg 03/25/18 14:50 03/25/18 17:58 Ativan Injection - IVPUSH 1 mg Q6H PRN Administration ANXIETY Metoprolol Tartrate 25 mg 03/24/18 22:00 03/25/18 21:13 Lopressor - PO Not Given BID [facility] Miscellaneous 1 each 03/18/18 22:00 03/25/18 21:13 Lidoderm Patch Removal MC 1 each DAILY@2200 [facility] Administration Morphine Sulfate 2 mg 03/25/18 15:44 03/25/18 16:24 Morphine Sulfate IVPUSH 2 mg Q4H PRN Administration PAIN LEVEL 6-10 Oxycodone HCl 5 mg 03/25/18 14:51 Roxicodone - PO Q4H PRN PAIN LEVEL 4 - 6 Pantoprazole Sodium 40 mg 03/18/18 15:15 03/25/18 11:00 Protonix - PO 40 mg DAILY [facility] Administration Polyethylene Glycol 17 gm 03/19/18 12:30 03/25/18 21:13 Miralax (For Daily Use) - PO Not Given BID [facility] Simethicone 80 mg 03/24/18 14:25 03/24/18 22:37 Mylicon - PO 80 mg Q6H PRN Administration GAS A/P 72 y/ o patient with metastatic adenocarinoma of lung s/p carbo/alimta with progression of disease. Now on nivolumab, 2nd line Admitted with worsening effusions, edema, ascites ? decompensated CHF ? malignant effusion s/p thoracentesis cytology negative awaiting calvary placement
[2018-03-26] MEDS: morphine SULFATE 4 MG/ML VIAL IVPUSH PRN ×2 (00:48→06:22)
[2018-03-26 02:58] VITALS: PULSE 78
[2018-03-26] MEDS: DOCUSATE SODIUM 100 MG CAPSULE (FP) PO SCH (05:28)
[2018-03-26 06:33] VITALS: BP 68/57; TEMP 97
[2018-03-26 07:50] LABS: BASO % 0.5 % (0-2.0); EOS % 0.1 % (0-4.5); HEMATOCRIT 49.1 % (32.4-45.2); HEMOGLOBIN 16.7 GM/dL (10.7-15.3); LYMPH % 4.6 % (8-40); MCH 36.3 pg (25.7-33.7); MEAN CELL VOLUME 106.8 fl (80-96); MEAN PLT VOLUME 8.6 fl (7.5-11.1); MONO % 11.1 % (3.8-10.2); NEUT % 83.7 % (42.8-82.8); WHITE BLOOD COUNT 9.2 K/mm3 (4.0-10.0)
[2018-03-26 08:22] LABS: ANION GAP 10 (8-16); BLOOD UREA NITROGEN 39 mg/dL (7-18); CALCIUM 9.2 mg/dL (8.5-10.1); CHLORIDE 99 mmol/L (98-107); CO2 29 mmol/L (21-32); CREATININE 1.9 mg/dL (0.55-1.02); GLUCOSE,RANDOM 54 mg/dL (74-106); MAGNESIUM 2.3 mg/dL (1.8-2.4); PHOSPHOROUS 6.7 mg/dL (2.5-4.9); POTASSIUM 5.5 mmol/L (3.5-5.1); SODIUM 138 mmol/L (136-145)
[2018-03-26 08:44] LABS: PLATELET COUNT 338 K/MM3 (134-434)
[2018-03-26 08:45] LABS: PLATELET ESTIMATE ADEQUATE
[2018-03-26] MEDS: FOLIC ACID 1 MG TABLET (FP) PO SCH (09:23)
[2018-03-26] MEDS: APIXABAN 5 MG TABLET PO SCH (09:23)
[2018-03-26] MEDS: METOPROLOL TARTRATE 25 MG TABLET (FP) PO SCH (09:24)
[2018-03-26] MEDS: PANTOPRAZOLE 40 MG TABLET (FP) PO SCH (09:24)
[2018-03-26] MEDS: POLYETHYLENE GLYCOL 3350 119 GM BTL PO SCH (09:24)
[2018-03-26] MEDS: LIDOCAINE 5% TOPICAL PATCH TP SCH (09:35)
[2018-03-26] MEDS ORDERED: MORPHINE 100 MG in SODIUM CHLORIDE 98 ML IVPB SCH (10:45)
--- NOTE | 2018-03-26 12:32 | PN ---
Progress Note, Physician Chief Complaint: pt increasingly lethargic, non responsive to verbal stimuli. appears comfortable. family at bedside - Current Medication List Current Medications: Active Medications Morphine Sulfate 100 mg/ (Sodium Chloride) 100 mls @ 1 mls/hr IVPB TITR MANDIE; 1 MG/HR PRN Reason: Protocol Last Admin: 03/26/18 11:59 Dose: 1 mg/hr, 1 mls/hr Lorazepam (Ativan Injection -) 1 mg IVPUSH Q6H PRN PRN Reason: ANXIETY Last Admin: 03/25/18 17:58 Dose: 1 mg - Objective Vital Signs: Vital Signs Temperature 97 F L 03/26/18 06:00 Pulse Rate 78 03/26/18 06:00 Respiratory Rate 12 03/26/18 09:38 Blood Pressure 68/57 03/26/18 06:00 O2 Sat by Pulse Oximetry (%) 93 L 03/26/18 09:00 Constitutional: Yes: No Distress, Thin Cardiovascular: Yes: Tachycardia, Pulse Irregular Respiratory: Yes: Diminished, On Nasal O2, Rales, Tachypnea Gastrointestinal: Yes: WNL, Normal Bowel Sounds, Soft. No: Distention, Tenderness Genitourinary: Yes: Incontinence Edema: No Neurological: Yes: Lethargy Labs: CBC, BMP 03/26/18 06:00 03/26/18 06:00 INR, PTT INR 1.26 (0.82-1.09) H 03/22/18 08:15 Fibrinogen 383.0 mg/dL (238-498) 03/22/18 08:15 Problem List - Problems (1) Metastatic lung cancer (metastasis from lung to other site) Code(s): C34.90 - MALIGNANT NEOPLASM OF UNSP PART OF UNSP BRONCHUS OR LUNG Qualifiers: Laterality: left Qualified Code(s): C34.92 - Malignant neoplasm of unspecified part of left bronchus or lung (2) Pleural effusion Code(s): J90 - PLEURAL EFFUSION, NOT ELSEWHERE CLASSIFIED (3) SOB (shortness of breath) Code(s): R06.02 - SHORTNESS OF BREATH (4) Atrial fibrillation Code(s): I48.91 - UNSPECIFIED ATRIAL FIBRILLATION Qualifiers: Atrial fibrillation type: persistent Qualified Code(s): I48.1 - Persistent atrial fibrillation (5) HLD (hyperlipidemia) Code(s): E78.5 - HYPERLIPIDEMIA, UNSPECIFIED Qualifiers: Hyperlipidemia type: pure hypercholesterolemia Qualified Code(s): E78.00 - Pure hypercholesterolemia, unspecified; E78.0 - Pure hypercholesterolemia (6) HTN (hypertension) Code(s): I10 - ESSENTIAL (PRIMARY) HYPERTENSION Qualifiers: Hypertension type: essential hypertension Qualified Code(s): I10 - Essential (primary) hypertension (7) CHF (congestive heart failure) Code(s): I50.9 - HEART FAILURE, UNSPECIFIED Qualifiers: Heart failure type: diastolic Heart failure chronicity: acute on chronic Qualified Code(s): I50.33 - Acute on chronic diastolic (congestive) heart failure Assessment/Plan COMFORT MEASURES Family decided on pt to go go [facility] for Hospice. Awaiting bed at [facility]. However, today, pt unstable for transfer due to increased lethargy and hypotension. Will make pt inpt hospice. Family at bedside Plan: Inpt Hospice Morphine Drip Ativan PRN Calderon Vital signs q shift Palliative team following
--- NOTE | 2018-03-27 11:13 | HOSP ---
Subjective - Review of Symptoms Events since last encounter: Hospitalist Encounter Notified by RN that the patient is unresponsive, with no spontaneous respirations Subjective: Arrived to bedside, patient is unresponsive, no response to verbal or tactile stimulus, no response to sternal rub, no apical or palpable pulses, no spontaneous respirations, Pupils fixed and dilated, absent corneal reflex, no gag reflex, no voluntary movements, skin cool to touch, pallor. Patient was pronounced at 19:16. Family was notified by RN. This is a 72 y/o woman Admitted for SOB, Pleural effusion secondary to Stage IV Metastatic Lung Ca Patient is a DNR/DNI Was on Comfort Measures Hospice Plan: TOD 19:16 Family aware RN to prepare PostMortem Care ODN to be called by RN Neurological: Yes: Other (Unresponsive) Physical Examination Vital Signs: Vital Signs Temperature 97 F L 03/26/18 06:00 Pulse Rate 78 03/26/18 06:00 Respiratory Rate 19 03/26/18 16:48 Blood Pressure 68/57 03/26/18 06:00 O2 Sat by Pulse Oximetry (%) 93 L 03/26/18 09:00 Cardiovascular: Yes: Other (No apical or palpable pulses) Respiratory: Yes: Other (No spontaneous respirations) Peripheral Pulses WNL: No Neurological: Yes: Unresponsive Labs: CBC, BMP 03/26/18 06:00 03/26/18 06:00
== END 2018-03-26 23:05 | disposition expired | DRG 180 ==
LOC: JER 16:32 → JERBED 22:49 → J7W 03-18 00:12
PROVIDERS: ADMIT Internal Medicine; ATTEND Internal Medicine
PROC: 0W993ZX Drainage of Right Pleural Cavity, Percutaneous Approach, Diagnostic (ICD-10-PCS; principal; 2018-03-22)
DX: C34.90 Malignant neoplasm of unspecified part of unspecified bronchus or lung (principal); I50.33 Acute on chronic diastolic (congestive) heart failure; J90 Pleural effusion, not elsewhere classified; I31.3 Pericardial effusion (noninflammatory); I48.1 Persistent atrial fibrillation; J98.11 Atelectasis; E87.2 Acidosis; M48.56XA Collapsed vertebra, not elsewhere classified, lumbar region, initial encounter for fracture; I11.0 Hypertensive heart disease with heart failure; R09.02 Hypoxemia; I95.2 Hypotension due to drugs; Z79.01 Long term (current) use of anticoagulants; E78.5 Hyperlipidemia, unspecified; Z87.891 Personal history of nicotine dependence; R59.1 Generalized enlarged lymph nodes; I27.20 Pulmonary hypertension, unspecified; I36.1 Nonrheumatic tricuspid (valve) insufficiency; I25.10 Atherosclerotic heart disease of native coronary artery without angina pectoris; Z86.73 Personal history of transient ischemic attack (TIA), and cerebral infarction without residual deficits; E86.1 Hypovolemia
CPT/HCPCS: 36415; 71045-TC-FY; 71250-TC; 74176-TC; 76942; 80048; 80053; 81003; 82042; 82150; 82438; 82550; 82945; 82962; 83605; 83615; 83735; 83880; 84100; 84157; 84311; 84478; 84484; 85025; 85027; 85384; 85610; 85730; 86850; 86900; 86901; 87070; 87075; 87102; 87116; 87205; 87206; 87210; 88108; 88305-TC; 89051; 93005; 93010; 93306-TC; 94010; 97116-GP; 97161-GP; 99285-25; J7030